=== PATIENT | female | born 1935 | race Caucasian/White ===

== ENCOUNTER 2017-03-28 20:05 | Emergency (ER) | payer MEDICARE ==
[2017-03-28 20:34] VITALS: BP 0/0
[2017-03-28] MEDS ORDERED: Acetaminophen TAB* 325 MG PO ONE (20:44)
--- NOTE | 2017-03-28 21:23 | UC ---
Bonnie Serrato Gabriel, scribed for Belén Eubanks MD on 03/28/17 at 2104 . Bite Injury/Animal HPI - HPI Summary HPI Summary: This patient is a 81 year old F presenting to [facility] [place] accompanied by her daughter with a chief complaint of a tick bite on her chin that she noticed this afternoon. Daughter attempted to remove - "legs left" Pt states has deer in her yard and was outside "picking up" when warm 2-3 days ago. Pt denies fevers , chills. Not immunocompromised. Pt does not know how long was attaches - believes less than 48 hours. Patient denies dental pain. Tdap UTD Patients medication reviewed during this visit. - History of Current Complaint Chief Complaint: [place] Stated Complaint: INSECT BITE Time Seen by Provider: 03/28/17 20:59 Hx Obtained From: Patient Severity Currently: Mild Severity Initially: Mild Pain Intensity: 0 Pain Scale Used: 0-10 Numeric Onset/Duration: Still Present Type of Bite: Animal - tick Associated Signs And Symptoms: Positive: Negative - dental pain - Allergies/Home Medications Allergies/Adverse Reactions: Allergies Allergy/AdvReac Type Severity Reaction Status Date / Time MS Captopril [From Capoten] Allergy Unknown Verified 03/28/17 20:17 Reaction Details MS Propoxyphene [From Darvon] Allergy Unknown Verified 03/28/17 20:17 Reaction Details VALSARTAN Allergy Severe JOINT Uncoded 03/28/17 20:17 PAIN, MULTIPLE REACTIONS Home Medications: Home Medications Aspirin Low Dose CHEW TAB* [Aspirin Low Dose TAB*] 81 mg PO DAILY 03/28/17 [ History Confirmed 03/28/17] Cyanocobalamin [Vitamin B 12] 03/28/17 [History] Ferrous Fumarate [Iron] 03/28/17 [History] PMH/Surg Hx/FS Hx/Imm Hx Cardiovascular History: Hypertension Neurological History: TIA - Surgical History Surgical History: Yes Surgery Procedure, Year, and Place: GOITER, HYSTERECTOMY, CARPAL TUNNEL - Family History Known Family History: Positive: Hypertension Negative: Diabetes, Renal Disease, Respiratory Disease, Seizure Disorder - Social History Occupation: Retired Lives: Alone Alcohol Use: None Substance Use Type: None Smoking Status (MU): Former Smoker Review of Systems Skin: Other - tick bite in chin ENT: Negative - dental pain All Other Systems Reviewed And Are Negative: Yes Physical Exam Triage Information Reviewed: Yes Appearance: Well-Appearing, No Pain Distress, Well-Nourished Vital Signs: Initial Vital Signs Temp 101 F 03/28/17 20:12 Pulse 94 03/28/17 20:12 Resp 18 03/28/17 20:12 BP 198/105 03/28/17 20:12 Pulse Ox 96 03/28/17 20:12 Vital Signs Reviewed: Yes Eye Exam: Normal Eyes: Positive: Conjunctiva Clear ENT Exam: Normal ENT: Positive: Normal ENT inspection, Pharynx normal, TMs normal Dental Exam: Normal Neck exam: Normal Respiratory Exam: Normal Respiratory: Positive: Chest non-tender, Lungs clear, Normal breath sounds, No respiratory distress, No accessory muscle use Cardiovascular Exam: Normal Cardiovascular: Positive: RRR, No Murmur Abdominal Exam: Normal Abdomen Description: Positive: Nontender, No Organomegaly, Soft Bowel Sounds: Positive: Present Musculoskeletal Exam: Normal Musculoskeletal: Positive: Strength Intact Neurological Exam: Normal Neurological: Positive: Alert Psychological Exam: Normal Psychological: Positive: Normal Response To Family Skin: Positive: Other - Pt with small retained sheridan of tick on left submental area using forceps and gentle traction and rotation removed majority - small sheridan remained Bite Injury Course/Dx - Course Course Of Treatment: Pt with small part retained tick chin. removed most - small sheridan left. Tdap Utd. d/w pt and daughter - one dose doxy given at . wound care. s/s infection. covered with abx ointment. pt comfortable and in agreement with plan - Differential Dx/Diagnosis Provider Diagnoses: tick bite. small tick part retained Discharge - Discharge Plan Condition: Stable Disposition: HOME Patient Education Materials: Tick Bite (ED) Referrals: Marcelo Hay MD [Primary Care Provider] - Additional Instructions: - Keep area clean and dry - okay to apply a thin layer of antibiotic ointment 2 times a day (neosporin, polysporin) - monitor the area for signs of infection - reddness, red streaking, odor, drainage, fever - contact your doctor with any questions or concerns The documentation as recorded by the Bonnie esposito Gabriel accurately reflects the service I personally performed and the decisions made by , Belén Eubanks MD.
[2017-03-28] MEDS ORDERED: DOXYcycline CAP(*) 100 MG PO ONE (21:39)
== END 2017-03-28 21:45 | disposition home or self-care (01) ==
LOC: UCEAST 20:05
DX: S00.86XA Insect bite (nonvenomous) of other part of head, initial encounter (principal); W57.XXXA Bitten or stung by nonvenomous insect and other nonvenomous arthropods, initial encounter; Y92.9 Unspecified place or not applicable; I10 Essential (primary) hypertension; Z86.73 Personal history of transient ischemic attack (TIA), and cerebral infarction without residual deficits; Z87.891 Personal history of nicotine dependence; Z79.82 Long term (current) use of aspirin
CPT/HCPCS: 99212; A9270-GY; G0463

== ENCOUNTER 2017-03-30 11:51 | Emergency (ER) | payer MEDICARE ==
[2017-03-30 13:39] LABS: ABS Basophils 0 10^3/ul (0-0.2); ABS Eosinophils 0 10^3/ul (0-0.6); ABS Lymphocytes 0.8 10^3/ul (1.0-4.8); ABS Monocytes 0.5 10^3/ul (0-0.8); ABS Neutrophils 8.6 10^3/ul (1.5-7.7); ABS Nucleated RBC 0 10^3/ul; Eosinophil % 0.3 % (0-6); Hematocrit 35 % (35-47); Hemoglobin 11.6 g/dl (12.0-16.0); Lymphocyte % 8.4 % (25-47); Mean Corpuscular HGB Conc 33 g/dl (31-36); Mean Corpuscular Hemoglobin 31 pg (27-31); Mean Corpuscular Volume 92 fL (80-97); Mean Platelet Volume 9 um3 (7.4-10.4); Nucleated Red Blood Cells % 0; Platelet Count 191 10^3/ul (150-450); Red Blood Count 3.79 10^6/ul (4.0-5.4); Red Cell Distribution Width 14 % (10.5-15)
[2017-03-30 14:02] LABS: EGFR Non-African American 38.1 (>60)
[2017-03-30 15:08] LABS: Urine Appearance Clear; Urine Blood Negative (Negative); Urine Color Yellow; Urine Ketones Negative (Negative); Urine Protein 1+(30 mg/dL) (Negative); Urine Specific Gravity 1.015 (1.010-1.030); Urine Urobilinogen Negative (Negative)
[2017-03-30] MEDS ORDERED: NS 0.9% 1000 ML* 1,000 ML IV ONE (15:11)
--- NOTE | 2017-03-30 15:46 | RAD ---
HISTORY: Leg swelling COMPARISONS: None relevant TECHNIQUE: Multiple transverse and longitudinal ultrasound images were obtained of the right lower extremity from the level of the common femoral vein inferiorly through to the infrapopliteal veins using grayscale, color Doppler, and spectral Doppler imaging with and without compression and with augmentation. Comparison images were obtained of the contralateral common femoral vein. FINDINGS: Evaluation of the calf veins is limited secondary to edema. VEINS: The venous system of the right lower extremity is compressible throughout its course, with normal flow on color Doppler imaging and normal response to augmentation on spectral Doppler imaging. SOFT TISSUES: There is subcutaneous edema of the distal right lower extremity. OTHER FINDINGS: None. IMPRESSION: NO RIGHT LOWER EXTREMITY DEEP VEIN THROMBOSIS
[2017-03-30 16:34] VITALS: BP 176/81
--- NOTE | 2017-04-02 13:10 | ED ---
Chalo Serrato Stephanie, scribed for Momo Melgar MD on 03/30/17 at 1520 . Complex/Multi-Sys Presentation - HPI Summary HPI Summary: The pt is an 81 y/o F presenting to the ED with c/o extremity shaking that began at 10:00 today. Pt pt reports that a few nights ago she went to and found a tick lodged into her neck. The pt reports chronic R LE edema for the past year. The pt denies CP , TORRES, N/V/D, blurred vision, tightness, pain with breathing, dizziness, lightheadedness, fever, chills, sweats, nausea and dysuria. Pt reports her toes look very red. Systolic BP usually 130. Reports that her ankle was swollen but denies pain with weight bearing. - History Of Current Complaint Chief Complaint: EDGeneral Time Seen by Provider: 03/30/17 14:02 Hx Obtained From: Patient Onset/Duration: Lasting Hours - 5, Resolved Timing: Constant - Allergies/Home Medications Allergies/Adverse Reactions: Allergies Allergy/AdvReac Type Severity Reaction Status Date / Time MS Captopril [From Capoten] Allergy Unknown Verified 03/28/17 20:17 Reaction Details MS Propoxyphene [From Darvon] Allergy Unknown Verified 03/28/17 20:17 Reaction Details VALSARTAN Allergy Severe JOINT Uncoded 03/28/17 20:17 PAIN, MULTIPLE REACTIONS PMH/Surg Hx/FS Hx/Imm Hx Cardiovascular History: Reports: Hx Hypertension Musculoskeletal History: Reports: Hx Osteoporosis - Cancer History Hx Chemotherapy: No Hx Radiation Therapy: No - Surgical History Surgery Procedure, Year, and Place: GOITER, HYSTERECTOMY, CARPAL TUNNEL - Immunization History Date of Influenza Vaccine: 11/2016 Immunizations Up to Date: Yes Infectious Disease History: No Infectious Disease History: Denies: Traveled Outside the [place] in Last 30 Days - Family History Known Family History: Positive: Hypertension Negative: Diabetes, Renal Disease, Respiratory Disease, Seizure Disorder - Social History Occupation: Retired Lives: Alone Alcohol Use: None Substance Use Type: Reports: None Smoking Status (MU): Former Smoker Review of Systems Negative: Fever, Chills Negative: Blurred Vision, Erythema Negative: Sore Throat Negative: Chest Pain Negative: Shortness Of Breath, Cough Negative: Abdominal Pain, Vomiting, Diarrhea, Nausea Negative: dysuria, hematuria Negative: Myalgia, Edema Negative: Rash Neurological: Other - Negative: dizziness Negative: Headache All Other Systems Reviewed And Are Negative: Yes Physical Exam - Summary Physical Exam Summary: Constitutional: Well-developed, Well-nourished, Alert. (-) Distressed Skin: Warm, Dry HENT: Normocephalic; Atraumatic Eyes: Conjunctiva normal Neck: Musculoskeletal ROM normal neck. (-) JVD, (-) Stridor, (-) Tracheal deviation Cardio: Rhythm regular, rate normal, Heart sounds normal; Intact distal pulses; The pedal pulses are 2+ and symmetric. Radial pulses are 2+ and symmetric. (-) Murmur Pulmonary/Chest wall: Effort normal. (-) Respiratory distress, (-) Wheezes, (-) Rales Abd: Soft. (-) Tenderness, (-) Distension, (-) Guarding, (-) Rebound Musculoskeletal: venous stasis skin changes in feet. R calf has trace edema and erythema. Nontender to palpation Lymph: (-) Cervical adenopathy Neuro: Alert, Oriented x3, Strength normal, Cranial nerves II-XII are grossly intact. (-) Dysmetria, (-) Nystagmus, (-) Ataxia by finger to nose testing, (-) Sensory deficit. Psych: Mood and affect Normal Triage Information Reviewed: Yes Vital Signs On Initial Exam: Initial Vitals Temp Pulse Resp BP Pulse Ox 98.9 F 87 18 194/88 91 03/30/17 12:11 03/30/17 12:11 03/30/17 12:11 03/30/17 12:11 03/30/17 12:11 Vital Signs Reviewed: Yes Procedures - Procedure Summary Procedure Summary: Tick removal procedure - Incision and Drainage Site: chin Anesthesia: Other - none Instrument(s): Other - Forceps Diagnostics - Vital Signs Vital Signs Temp Pulse Resp BP Pulse Ox 03/30/17 12:11 98.9 F 87 18 194/88 91 - Laboratory Lab Results: Lab Results 03/30/17 03/30/17 03/30/17 Range/Units 13:30 13:30 14:30 WBC 10.0 (3.5-10.8) 10^3/ul RBC 3.79 L (4.0-5.4) 10^6/ul Hgb 11.6 L (12.0-16.0) g/dl Hct 35 (35-47) % MCV 92 (80-97) fL MCH 31 (27-31) pg MCHC 33 (31-36) g/dl RDW 14 (10.5-15) % Plt Count 191 (150-450) 10^3/ul MPV 9 (7.4-10.4) um3 Neut % (Auto) 85.7 H (38-83) % Lymph % (Auto) 8.4 L (25-47) % [place] % (Auto) 5.1 (1-9) % Eos % (Auto) 0.3 (0-6) % Baso % (Auto) 0.5 (0-2) % Absolute Neuts (auto) 8.6 H (1.5-7.7) 10^3/ul Absolute Lymphs (auto) 0.8 L (1.0-4.8) 10^3/ul Absolute Monos (auto) 0.5 (0-0.8) 10^3/ul Absolute Eos (auto) 0 (0-0.6) 10^3/ul Absolute Basos (auto) 0 (0-0.2) 10^3/ul Absolute Nucleated RBC 0 10^3/ul Nucleated RBC % 0 Sodium 136 (133-145) mmol/L Potassium 5.0 (3.5-5.0) mmol/L Chloride 100 L (101-111) mmol/L Carbon Dioxide 30 (22-32) mmol/L Anion Gap 6 (2-11) mmol/L BUN 31 H (6-24) mg/dL Creatinine 1.33 H (0.51-0.95) mg/dL Est GFR ( Amer) 49.0 (>60) Est GFR (Non-Af Amer) 38.1 (>60) BUN/Creatinine Ratio 23.3 H (8-20) Glucose 101 H (70-100) mg/dL Calcium 10.1 (8.6-10.3) mg/dL Total Bilirubin 0.70 (0.2-1.0) mg/dL AST 26 (13-39) U/L ALT 20 (7-52) U/L Alkaline Phosphatase 39 (34-104) U/L C-Reactive Protein 1.64 (< 5.00) mg/L Total Protein 6.9 (6.4-8.9) g/dL Albumin 4.1 (3.2-5.2) g/dL Globulin 2.8 (2-4) g/dL Albumin/Globulin Ratio 1.5 (1-3) Urine Color Yellow Urine Appearance Clear Urine pH 6.0 (5-9) Ur Specific [place] 1.015 (1.010-1.030) Urine Protein 1+(30 mg/dl) H (Negative) Urine Ketones Negative (Negative) Urine Blood Negative (Negative) Urine Nitrate Negative (Negative) Urine Bilirubin Negative (Negative) Urine Urobilinogen Negative (Negative) Ur Leukocyte Esterase Trace H (Negative) Urine WBC (Auto) Trace(0-5/hpf) (Absent) Urine RBC (Auto) Trace(0-2/hpf) (Absent) Ur Squamous Epith Cells Present H (Absent) Urine Bacteria Absent (Absent) Hyaline Casts Present H (Absent) Urine Glucose Negative (Negative) Result Diagrams: 03/30/17 13:30 03/30/17 13:30 Lab Statement: Any lab studies that have been ordered have been reviewed, and results considered in the medical decision making process. - Additional Comments Diagnostic Additional Comments: Venous Doppler showed: NO RIGHT LOWER EXTREMITY DEEP VEIN THROMBOSIS Complex Multi-Symp Course/Dx Course Of Treatment: DVT study negative. The pt previously injured that ankle. ED physician suspects she may have stasis due to past injury. She is tolerating liquids. The pt knows she needs to increase fluid intake. ED physician suggests half-caffeinated coffee. She understands the coffee may have caused her shakiness. No signs or symptoms of Lyme disease. Mouth part of the tick was removed with forceps. - Diagnoses Provider Diagnoses: Tick bite, Adverse effect of caffeine, Dehydration Discharge - Discharge Plan Condition: Stable Disposition: HOME Patient Education Materials: Dehydration (ED), Tick Bite (ED), Caffeine Use (ED ) Referrals: Marcelo Hay MD [Primary Care Provider] - 3 Days Additional Instructions: RETURN TO THE EMERGENCY DEPARTMENT FOR CHANGING OR WORSENING SYMPTOMS The documentation as recorded by the Chalo esposito Stephanie accurately reflects the service I personally performed and the decisions made by , Momo Melgar MD.
== END 2017-03-30 16:36 | disposition home or self-care (01) ==
LOC: ED 11:51
DX: R25.9 Unspecified abnormal involuntary movements (principal); T43.615A Adverse effect of caffeine, initial encounter; E86.0 Dehydration; R60.0 Localized edema; S10.96XA Insect bite of unspecified part of neck, initial encounter; W57.XXXA Bitten or stung by nonvenomous insect and other nonvenomous arthropods, initial encounter; Y92.9 Unspecified place or not applicable; Z88.8 Allergy status to other drugs, medicaments and biological substances; Z87.891 Personal history of nicotine dependence
CPT/HCPCS: 36415; 80053; 81003; 81015; 85025; 86140; 87086; 99282

== ENCOUNTER 2017-04-01 09:57 | Emergency (ER) | payer MEDICARE ==
[2017-04-01 12:09] LABS: EGFR Non-African American 39.5 (>60)
[2017-04-01 12:22] LABS: ABS Basophils 0 10^3/ul (0-0.2); ABS Eosinophils 0 10^3/ul (0-0.6); ABS Monocytes 0.4 10^3/ul (0-0.8); ABS Neutrophils 7.2 10^3/ul (1.5-7.7); ABS Nucleated RBC 0 10^3/ul; Eosinophil % 0.2 % (0-6); Hematocrit 37 % (35-47); Hemoglobin 12.4 g/dl (12.0-16.0); Lymphocyte % 11.2 % (25-47); Mean Corpuscular HGB Conc 34 g/dl (31-36); Mean Corpuscular Hemoglobin 31 pg (27-31); Mean Corpuscular Volume 92 fL (80-97); Mean Platelet Volume 8 um3 (7.4-10.4); Nucleated Red Blood Cells % 0.1; Platelet Count 200 10^3/ul (150-450); Red Cell Distribution Width 14 % (10.5-15); White Blood Count 8.7 10^3/ul (3.5-10.8)
[2017-04-01 12:39] LABS: Urine Appearance Clear; Urine Blood Negative (Negative); Urine Color Straw; Urine Ketones Negative (Negative); Urine Protein Negative (Negative); Urine Specific Gravity 1.006 (1.010-1.030); Urine Urobilinogen Negative (Negative)
[2017-04-01 14:42] VITALS: BP 169/88
--- NOTE | 2017-04-01 16:33 | ED ---
Seymour Serrato Nikita, scribed for Marcelo Yeung MD on 04/01/17 at 1113 . Lower Extremity - HPI Summary HPI Summary: This patient is an 81 year old F presenting to ED with a chief complaint of shaky legs since 03/29/17. The patient rates the pain 0/10 in severity. Symptoms aggravated by nothing. Symptoms alleviated by nothing. Patient reports dehydration and bilateral LE swelling. Patient denies numbness or tingling, body aches, any pain, CP, SOB, palpitations, fever, and chills. Pt was in the ED a couple days ago for similar symptoms. Pt had a tick removed at a few days ago. - History of Current Complaint Chief Complaint: EDExtremityLower Stated Complaint: SHAKY-LEGS Time Seen by Provider: 04/01/17 10:35 Hx Obtained From: Patient Severity Currently: None Pain Intensity: 0 Pain Scale Used: 0-10 Numeric Location: Is Discrete @ - bilateral LE Associated Signs And Symptoms: Positive: Other - Patient reports dehydration and bilateral LE swelling. Patient denies numbness or tingling, body aches, any pain, CP, SOB, palpitations, fever, and chills. Aggravating Factor(s): Nothing Alleviating Factor(s): Nothing - Allergies/Home Medications Allergies/Adverse Reactions: Allergies Allergy/AdvReac Type Severity Reaction Status Date / Time MS Captopril [From Capoten] Allergy Unknown Verified 03/28/17 20:17 Reaction Details MS Propoxyphene [From Darvon] Allergy Unknown Verified 03/28/17 20:17 Reaction Details VALSARTAN Allergy Severe JOINT Uncoded 03/28/17 20:17 PAIN, MULTIPLE REACTIONS cleocin Allergy Unknown Uncoded 04/01/17 10:10 Reaction Details Home Medications: Home Medications Cyanocobalamin TAB* [Vitamin B12 TAB*] 6,000 mcg PO DAILY 04/01/17 [History Confirmed 04/01/17] Ferrous Sulfate LIQ* [Feosol LIQ*] 5 ml PO DAILY 04/01/17 [History Confirmed 05/14] Potassium Chloride 15 ml PO DAILY 04/01/17 [History Confirmed 04/01/17] Valsartan TAB* [Diovan TAB*] 160 mg PO DAILY 04/01/17 [History Confirmed ] PMH/Surg Hx/FS Hx/Imm Hx Cardiovascular History: Reports: Hx Hypertension Musculoskeletal History: Reports: Hx Osteoporosis - Cancer History Hx Chemotherapy: No Hx Radiation Therapy: No - Surgical History Surgery Procedure, Year, and Place: GOITER, HYSTERECTOMY, CARPAL TUNNEL - Immunization History Date of Influenza Vaccine: 11/2016 Infectious Disease History: No Infectious Disease History: Denies: Traveled Outside the [place] in Last 30 Days - Family History Known Family History: Positive: Hypertension Negative: Diabetes, Renal Disease, Respiratory Disease, Seizure Disorder - Social History Alcohol Use: None Substance Use Type: Reports: None Smoking Status (MU): Former Smoker Review of Systems Negative: Fever, Chills Positive: Other - dehydration Negative: Palpitations, Chest Pain Negative: Shortness Of Breath Positive: Other - LE swelling; denies any pain or body aches Neurological: Other - "shaky legs"; denies any numbness or tingling All Other Systems Reviewed And Are Negative: Yes Physical Exam - Summary Physical Exam Summary: VITAL SIGNS: Reviewed. GENERAL: ~Patient is a well-developed and nourished FEMALE who is lying comfortable in the stretcher. ~Patient is not in any acute respiratory distress. HEAD AND FACE: No signs of trauma. ~No ecchymosis, hematomas or skull depressions. No sinus tenderness. EYES: PERRLA, EOMI x 2, No injected conjunctiva, no nystagmus. EARS: Hearing grossly intact. Ear canals and tympanic membranes are within normal limits. MOUTH: Oropharynx within normal limits. NECK: Supple, trachea is midline, no adenopathy, no JVD, no carotid bruit, no c- spine tenderness, neck with full ROM. CHEST: Symmetric, no tenderness at palpation LUNGS: Clear to auscultation bilaterally. No wheezing or crackles. CVS: Regular rate and rhythm, S1 and S2 present, no murmurs or gallops appreciated. ABDOMEN: Soft, non-tender. No signs of distention. No rebound no guarding, and no masses palpated. Bowel sounds are normal. EXTREMITIES: FROM in all major joints, no cyanosis or clubbing. Good pulses in the legs, 1+ edema. NEURO: Alert and oriented x 3. No acute neurological deficits. Speech is normal and follows commands. SKIN: Dry and warm, no erythema. Triage Information Reviewed: Yes Vital Signs On Initial Exam: Initial Vitals Temp Pulse Resp BP Pulse Ox 99.1 F 78 19 189/139 99 04/01/17 10:06 04/01/17 10:06 04/01/17 10:06 04/01/17 10:06 04/01/17 10:06 Vital Signs Reviewed: Yes Diagnostics - Vital Signs Vital Signs Temp Pulse Resp BP Pulse Ox 04/01/17 11:00 66 177/78 96 04/01/17 10:31 70 98 04/01/17 10:30 190/64 04/01/17 10:06 99.1 F 78 19 189/139 99 - Laboratory Lab Results: Lab Results 04/01/17 04/01/17 04/01/17 Range/Units 11:40 12:00 12:08 WBC 8.7 (3.5-10.8) 10^3/ul RBC 4.00 (4.0-5.4) 10^6/ul Hgb 12.4 (12.0-16.0) g/dl Hct 37 (35-47) % MCV 92 (80-97) fL MCH 31 (27-31) pg MCHC 34 (31-36) g/dl RDW 14 (10.5-15) % Plt Count 200 (150-450) 10^3/ul MPV 8 (7.4-10.4) um3 Neut % (Auto) 83.3 H (38-83) % Lymph % (Auto) 11.2 L (25-47) % [place] % (Auto) 5.0 (1-9) % Eos % (Auto) 0.2 (0-6) % Baso % (Auto) 0.3 (0-2) % Absolute Neuts (auto) 7.2 (1.5-7.7) 10^3/ul Absolute Lymphs (auto) 1.0 (1.0-4.8) 10^3/ul Absolute Monos (auto) 0.4 (0-0.8) 10^3/ul Absolute Eos (auto) 0 (0-0.6) 10^3/ul Absolute Basos (auto) 0 (0-0.2) 10^3/ul Absolute Nucleated RBC 0 10^3/ul Nucleated RBC % 0.1 Sodium 132 L (133-145) mmol/L Potassium TNP Chloride 100 L (101-111) mmol/L Carbon Dioxide 24 (22-32) mmol/L Anion Gap 8 (2-11) mmol/L BUN 31 H (6-24) mg/dL Creatinine 1.29 H (0.51-0.95) mg/dL Est GFR ( Amer) 50.8 (>60) Est GFR (Non-Af Amer) 39.5 (>60) BUN/Creatinine Ratio 24.0 H (8-20) Glucose 96 (70-100) mg/dL Calcium 9.3 (8.6-10.3) mg/dL Total Bilirubin 0.60 (0.2-1.0) mg/dL AST TNP ALT 16 (7-52) U/L Alkaline Phosphatase 31 L (34-104) U/L C-Reactive Protein < 1.00 (< 5.00) mg/L Total Protein 6.4 (6.4-8.9) g/dL Albumin 3.6 (3.2-5.2) g/dL Globulin 2.8 (2-4) g/dL Albumin/Globulin Ratio 1.3 (1-3) Urine Color Straw Urine Appearance Clear Urine pH 7.0 (5-9) Ur Specific [place] 1.006 L (1.010-1.030) Urine Protein Negative (Negative) Urine Ketones Negative (Negative) Urine Blood Negative (Negative) Urine Nitrate Negative (Negative) Urine Bilirubin Negative (Negative) Urine Urobilinogen Negative (Negative) Ur Leukocyte Esterase Negative (Negative) Urine Glucose Negative (Negative) 04/01/17 Range/Units 12:08 WBC (3.5-10.8) 10^3/ul RBC (4.0-5.4) 10^6/ul Hgb (12.0-16.0) g/dl Hct (35-47) % MCV (80-97) fL MCH (27-31) pg MCHC (31-36) g/dl RDW (10.5-15) % Plt Count (150-450) 10^3/ul MPV (7.4-10.4) um3 Neut % (Auto) (38-83) % Lymph % (Auto) (25-47) % [place] % (Auto) (1-9) % Eos % (Auto) (0-6) % Baso % (Auto) (0-2) % Absolute Neuts (auto) (1.5-7.7) 10^3/ul Absolute Lymphs (auto) (1.0-4.8) 10^3/ul Absolute Monos (auto) (0-0.8) 10^3/ul Absolute Eos (auto) (0-0.6) 10^3/ul Absolute Basos (auto) (0-0.2) 10^3/ul Absolute Nucleated RBC 10^3/ul Nucleated RBC % Sodium (133-145) mmol/L Potassium 4.6 Chloride (101-111) mmol/L Carbon Dioxide (22-32) mmol/L Anion Gap (2-11) mmol/L BUN (6-24) mg/dL Creatinine (0.51-0.95) mg/dL Est GFR ( Amer) (>60) Est GFR (Non-Af Amer) (>60) BUN/Creatinine Ratio (8-20) Glucose (70-100) mg/dL Calcium (8.6-10.3) mg/dL Total Bilirubin (0.2-1.0) mg/dL AST 23 ALT (7-52) U/L Alkaline Phosphatase (34-104) U/L C-Reactive Protein (< 5.00) mg/L Total Protein (6.4-8.9) g/dL Albumin (3.2-5.2) g/dL Globulin (2-4) g/dL Albumin/Globulin Ratio (1-3) Urine Color Urine Appearance Urine pH (5-9) Ur Specific [place] (1.010-1.030) Urine Protein (Negative) Urine Ketones (Negative) Urine Blood (Negative) Urine Nitrate (Negative) Urine Bilirubin (Negative) Urine Urobilinogen (Negative) Ur Leukocyte Esterase (Negative) Urine Glucose (Negative) Result Diagrams: 04/01/17 12:08 04/01/17 12:08 Lab Statement: Any lab studies that have been ordered have been reviewed, and results considered in the medical decision making process. Lower Extremity Course/Dx - Course Assessment/Plan: This patient is an 81 year old F presenting to ED with a chief complaint of shaky legs since 03/29/17. Blood work is without significant abnormalities. No signs for UTI. A bilateral US was done a couple days ago, which was negative. Pt was ambulating with no tremors, so she was D/C home with instructions to f/u with PCP. The pt is hemodynamically stable, alert and oriented x3. - Diagnoses Differential Diagnosis/HQI/PQRI: Positive: Other - tremors Provider Diagnoses: Tremor Discharge - Discharge Plan Condition: Stable Disposition: HOME Patient Education Materials: Tremors (ED) Referrals: Marcelo Hay MD [Primary Care Provider] - 3 Days Additional Instructions: RETURN TO THE ED FOR ANY NEW OR WORSENING SYMPTOMS. The documentation as recorded by the Seymour esposito Nikita accurately reflects the service I personally performed and the decisions made by Gamal gibbons Walter, MD.
== END 2017-04-01 14:41 | disposition home or self-care (01) ==
LOC: ED 09:57
DX: R25.1 Tremor, unspecified (principal); Z87.891 Personal history of nicotine dependence; Z88.8 Allergy status to other drugs, medicaments and biological substances
CPT/HCPCS: 36415; 80053; 81003; 85025; 86140; 99283

== ENCOUNTER 2017-08-01 13:13 | Emergency (ER) | payer MEDICARE ==
[2017-08-01] MEDS ORDERED: Atenolol TAB* 50 MG PO ONE (14:44)
[2017-08-01] MEDS ORDERED: Furosemide TAB* 40 MG PO ONE (14:44)
--- NOTE | 2017-08-01 15:17 | RAD ---
Indication: Peripheral edema. 2 views of the chest are reviewed and compared to previous exam dated September 25, 2015. Cardiomegaly is noted. Interstitial edema consistent with CHF is noted. No alveolar consolidation is noted. IMPRESSION: Cardiomegaly with interstitial edema consistent with vascular congestion.
[2017-08-01 15:24] LABS: ABS Basophils 0 10^3/ul (0-0.2); ABS Eosinophils 0 10^3/ul (0-0.6); ABS Lymphocytes 0.8 10^3/ul (1.0-4.8); ABS Monocytes 0.4 10^3/ul (0-0.8); ABS Neutrophils 6.9 10^3/ul (1.5-7.7); ABS Nucleated RBC 0 10^3/ul; Eosinophil % 0.1 % (0-6); Hematocrit 36 % (35-47); Hemoglobin 12.1 g/dl (12.0-16.0); Lymphocyte % 9.8 % (25-47); Mean Corpuscular HGB Conc 34 g/dl (31-36); Mean Corpuscular Hemoglobin 31 pg (27-31); Mean Corpuscular Volume 91 fL (80-97); Mean Platelet Volume 7.9 um3 (7.4-10.4); Nucleated Red Blood Cells % 0; Platelet Count 201 10^3/ul (150-450); Red Blood Count 3.98 10^6/ul (4.0-5.4); Red Cell Distribution Width 13 % (10.5-15); White Blood Count 8.1 10^3/ul (3.5-10.8)
[2017-08-01 15:42] LABS: EGFR Non-African American 47.9 (>60)
[2017-08-01 18:58] VITALS: BP 189/88
--- NOTE | 2017-08-04 08:41 | ED ---
Chalo Serrato Stephanie, scribed for Momo Melgar MD on 08/01/17 at 1443 . Hypertension - HPI Summary HPI Summary: The pt is an 81 y/o F presenting to the ED with c/o elevated BP that began over the past few days. Symptoms include shakiness. She denies dizziness, lightheadedness, CP, TORRES and weight gain. The pt walks with a cane at baseline. The pt states she took her medications today at 08:00 except her fluid pill. The pt states her BP has lately been between 150-170 systolic. The pts daughter reports the pts normal BP at 130s systolic. - History of Current Complaint Chief Complaint: EDGeneral Stated Complaint: HIGH BP Time Seen by Provider: 08/01/17 14:35 Hx Obtained From: Patient, Family/Brass Bobbin Winder - daughter Onset/Duration: Started Days Ago, Still Present Timing: Constant Aggravating Factor(s): Nothing Alleviating Factor(s): Nothing Associated Signs & Symptoms: Other: - shaking - Allergies/Home Medications Allergies/Adverse Reactions: Allergies Allergy/AdvReac Type Severity Reaction Status Date / Time captopril Allergy Hives Verified 08/01/17 13:23 clindamycin [From Cleocin] Allergy Unknown Verified 08/01/17 15:15 Reaction Details Home Medications: Home Medications Atenolol TAB* [Tenormin TAB* 50 MG] 100 mg PO DAILY 08/01/17 [History Confirmed 08/01/17] Jace/D3/Mag11/Zinc/Drafter Topographical/Mike/Bor [Caltrate 600+D Plus] 1 tab PO DAILY 08/01/17 [ History Confirmed 08/01/17] Potassium Chloride 20 meq PO DAILY 08/01/17 [History Confirmed 08/01/17] PMH/Surg Hx/FS Hx/Imm Hx Cardiovascular History: Reports: Hx Hypertension Musculoskeletal History: Reports: Hx Osteoporosis Sensory History: Denies: Hx Legally Blind EENT History: Denies: Hx Deafness - Cancer History Hx Chemotherapy: No Hx Radiation Therapy: No - Surgical History Surgery Procedure, Year, and Place: GOITER, HYSTERECTOMY, CARPAL TUNNEL - Immunization History Date of Influenza Vaccine: 11/2016 Infectious Disease History: No Infectious Disease History: Denies: Traveled Outside the [place] in Last 30 Days - Family History Known Family History: Positive: Hypertension Negative: Diabetes, Renal Disease, Respiratory Disease, Seizure Disorder - Social History Occupation: Retired Lives: With Family Alcohol Use: None Hx Substance Use: No Substance Use Type: Reports: None Hx Tobacco Use: Yes Smoking Status (MU): Former Smoker Review of Systems Positive: Other - shakiness. Negative: Fever, Chills Negative: Erythema Negative: Sore Throat Negative: Chest Pain Negative: Shortness Of Breath, Cough Negative: Abdominal Pain, Vomiting, Nausea Negative: dysuria, hematuria Negative: Myalgia, Edema Negative: Rash Neurological: Negative - dizziness All Other Systems Reviewed And Are Negative: Yes Physical Exam - Summary Physical Exam Summary: Constitutional: Well-developed, Well-nourished, Alert. (-) Distressed Skin: Warm, Dry HENT: Normocephalic; Atraumatic Eyes: Conjunctiva normal Neck: Musculoskeletal ROM normal neck. (-) JVD, (-) Stridor, (-) Tracheal deviation Cardio: Rhythm regular, rate normal, Heart sounds normal; Intact distal pulses; The pedal pulses are 2+ and symmetric. Radial pulses are 2+ and symmetric. (-) Murmur Pulmonary/Chest wall: Effort normal. (-) Respiratory distress, (-) Wheezes, (-) Rales Abd: Soft, (-) Tenderness, (-) Distension, (-) Guarding, (-) Rebound Musculoskeletal: (-) Edema Lymph: (-) Cervical adenopathy Neuro: Alert, Oriented x3 Psych: Mood and affect Normal Triage Information Reviewed: Yes Vital Signs On Initial Exam: Initial Vitals Temp Pulse Resp BP Pulse Ox 99 F 78 18 188/88 97 08/01/17 13:19 08/01/17 13:19 08/01/17 13:19 08/01/17 13:19 08/01/17 13:19 Vital Signs Reviewed: Yes Diagnostics - Vital Signs Vital Signs Temp Pulse Resp BP Pulse Ox 08/01/17 14:35 76 196/91 96 08/01/17 14:25 98.2 F 71 16 184/83 99 08/01/17 13:19 99 F 78 18 188/88 97 - Laboratory Result Diagrams: 08/01/17 15:18 08/01/17 15:18 Lab Statement: Any lab studies that have been ordered have been reviewed, and results considered in the medical decision making process. - Radiology CXR Xray Interpretation: Positive (See Comments) Radiology Interpretation Completed By: Radiologist - Cardiomegaly with interstitial edema consistent with vascular congestion. ED physician has reviewed this report. - EKG 14:54 Cardiac Rate: NL EKG Rhythm: Sinus Rhythm - 68 BPM EKG Interpretation: no STEMI Re-Evaluation - Re-Evaluation First Eval Re-Evaluation Time: 17:35 Change: Unchanged - The pt is agreable for discharge. She agrees to take her lasix everday. Hypertension Course/Dx - Diagnoses Provider Diagnoses: Pulmonary edema, Hypertension Discharge - Sign-Out/Discharge Documenting (check all that apply): Discharge/Admit/Transfer - Discharge - Discharge Plan Condition: Stable Disposition: HOME Patient Education Materials: Hypertension in the Older Adult (ED) Referrals: Marcelo Hay MD [Primary Care Provider] - 2 Days Additional Instructions: Return to the ED for new or worsening symptoms. Take Lasix every day. Weigh yourself daily. Report to PCP with any changes. The documentation as recorded by the Chalo esposito Stephanie accurately reflects the service I personally performed and the decisions made by , Momo Melgar MD.
== END 2017-08-01 18:57 | disposition home or self-care (01) ==
LOC: ED 13:13
DX: J81.1 Chronic pulmonary edema (principal); I10 Essential (primary) hypertension; R25.1 Tremor, unspecified; Z88.1 Allergy status to other antibiotic agents; Z88.8 Allergy status to other drugs, medicaments and biological substances; M81.0 Age-related osteoporosis without current pathological fracture; Z90.710 Acquired absence of both cervix and uterus; Z82.49 Family history of ischemic heart disease and other diseases of the circulatory system; Z87.891 Personal history of nicotine dependence
CPT/HCPCS: 36415; 71046; 80053; 83605; 83880; 84484; 85025; 93005; 99284; A9270-GY

== ENCOUNTER → 2017-09-01 16:15 | Emergency (ER) | payer MEDICARE ==
[~2017-09-01 16:15] MED LIST: NS 0.9% 1000 ML* 1,000 ML IV ONE; ceFAZolin 1 GM in Dextrose (*) 1 GM/50 ML BAG IVPB ONE
--- OUTSIDE RECORDS SUMMARY | 2017-09-01 16:42 | XMS REPORT ---
:1935 External Reference #:[id number] Author Organization [facility] Address [address] [facility] [place] [address] Phone [phone] Care Team Providers Name Role Phone Marcelo Hay III, MD Primary Care Physician Unavailable Payers Type Date Identification Numbers Payment Provider Subscriber Medicare Primary Policy Number: [id number] Medicare Lucie Schmitt PayID: [id number] [address] [place] [address] Medigap Part B Effective: Policy Number: [facility] Lucie Schmitt 2013 [id number] [facility] PayID: [id number] [address] [place] [address] Medigap Part B Expires: 2013 Policy Number: BS [facility] Lucie Schmitt [id number] PayID: [id number] [address] [address] [place] [address] Problems Date Description Provider Status Onset: 04/18/2011 Benign essential hypertension Marcelo Hay M.D. Active Onset: 04/18/2011 Osteoporosis Marcelo Hay M.D. Active Onset: 04/18/2011 Anemia Marcelo Hay M.D. Active Onset: 06/23/2015 Essential hypertension Marcelo Hay M.D. 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 Chloride 2016 (10%) ts MLS Once Bharti, Daily By M.D. Mouth 3 times a week with Lasix doses Ferrous 10/05/ Active Elixir 220(44Fe) 473uni Take 5 MLS Marcelo E. Sulfate 2016 mg/5ML ts By Mouth Bharti, Once Daily M.D. With A Small Glass Of [place] Juice Diovan 09/11/ Active Tablets 160mg 90tabs Take One I10 Marcelo E. 2014 Tablet By Bharti, Everette Once M.D. Daily Vitamin B12 07/29/ Active Tablets ER 6000mcg 90tabs 1 po qd Unknown 2013 Furosemide 08/20/ Active Tablets 40mg 30tabs now taking Marcelo E. 2010 daily---delilah Meyer One M.D. Tablet By Mouth Once Daily If Needed Alendronate 06/15/ Active Tablets 70mg 12tabs Take 1 Marcelo EViji Sodium 2010 Tablet By Everette Hay M.DViji Every Week Aspirin 08/18/ Active Tablets 81mg 1 po qd Marcelo Toure 2009 Tommy Hay Caltrate 600+D 02/15/ Active Tablets 1 PO daily Marcelo Toure 2006 Tommy Hay Atenolol / Active Tablets 100mg 90tabs take one Marcelo E. 0000 tablet by Bharti, mouth once M.D. daily Klor-Con M20 04/16/ Hx Tablets ER 20Meq 90tabs 1 by mouth Marcelo Toure 2015 - every day Bharti 10/10/ Tommy 2016 Lidoderm 12/25/ Hx Patches 5% 15unit use as M54.2 Marcelo Toure 2014 - s needed on Bharti, affected M.D. 2014 area. on for 12 hours then off for 12 hours. Valsartan 06/08/ Hx Tablets 160mg 90tabs 1 by mouth 401.1 Marcelo Toure 2014 - every day Bharti, M.D. 2014 Ferrous 07/29/ Hx Tablets 325mg 180tab 1 by mouth Marcelo Toure Gluconate 2013 - s twice a Bharti, 10/05/ day M.D. 2015 Prolia 04/23/ Hx Solution 60mg/ml 60mg 60 mg sc Marcelo Toure 2013 - q6mon Bharti, M.D. 2013 Doxazosin 08/08/ Hx Tablets 2mg 90tabs take 1 Marcelo Toure Mesylate 2011 - tablet by Bharti, 06/24/ mouth once M.D. 2014 daily Cipro 02/16/ Hx Tablets 500mg 20tabs 1 po bid Marcelo Toure 2010 - Bharti, M.D. 2011 Klor-Con 10/01/ Hx Packet 20Meq 90unit 1 by mouth I10 Marcelo Toure 2010 - s every day Bharti, 06/22/ M.D. 2016 Furosemide 08/17/ Hx Tablets 40mg 90tabs take 1 Marcelo Toure 2010 - tablet by Bharti, 08/20/ mouth once M.D. 2010 daily if needed Klor-Con M20 04/05/ Hx Tablets ER 20Meq 30tabs 1 po qd Marcelo Toure 2010 - Bharti, 10/01/ M.D. 2010 Klor-Con 01/04/ Hx Tablets ER 20Meq 30tabs 1 po qd Marcelo Toure 2009 - (pt Bharti, 04/05/ switched M.D. 2010 to tablets from powder) Klor-Con 01/20/ Hx Packet 20Meq 30unit 1 po qd Marcelo Toure 2007 - s prn when Bharti, 01/04/ M.D. 2009 lasix Ferrous 12/09/ Hx Tablets 325mg 180tab 1 PO bid Marcelo Toure Gluconate 2007 - s Bharti, 10/17/ M.D. 2011 Fosamax 09/05/ Hx Tablets 70mg 12tabs One Tablet Leo 2008 - po Weekly Pachikara, 06/15/ M.D. 2010 Klor-Con 07/23/ Hx Packet 20Meq 1can 1 PO qd Marcelo Toure 2007 - (powder) Bharti, 01/20/ M.D. 2007 Fosamax 01/05/ Hx Tablets 70mg 4tabs q week Marcelo Toure 2006 - with 8 oz Bharti, 02/15/ water and M.D. 2006 do not lay down for one hour after Cardura 12/04/ Hx Tablets 2mg 30tabs 1 po qd Marcelo Toure 2006 - Bharti, 08/08/ M.D. 2011 Aspirin / Hx Tablets 325mg 1 PO qd Ha 0000 - MD Steffen 2009 Klor-Con M20 / Hx Tablets ER 20Meq 90tabs 1 PO qd Marcelo Toure 0000 - Bharti, 07/23/ M.D. 2007 Lasix / Hx Tablets 40mg 90tabs 1 PO qd Marcelo Toure 0000 - prn. no Bharti, 08/17/ more then M.D. 2010 3x's a week Vitamin B12 / Hx Tablets ER 6000mcg 1 po qd Unknown 0000 - 2011 Diovan / Hx Tablets 160mg 90tabs take 1 401.1 Marcelo Toure 0000 - tablet by Bharti, 06/08/ mouth once M.D. 2014 daily Multivitamin / Hx Capsules 30caps 1 capsule Unknown W/Minerals 0000 - tasia;y 2012 Medications Administered in Office Medication Date Status Form Strength Qnty SIG Indications Ordering Provider B-12 Injection Administered Injection Marcelo Hay M.D. Immunizations CPT Code Status Date Vaccine Lot # [id number] Given 2016 Influenza Virus Vaccine, Quadrivalent, Split, Preservative Free Q2038 Given 11/10/2014 Fluzone Vaccine [id number] Given 04/24/2014 Pneumococcal Conjugate Vaccine 13 Valent For [id number] Intramuscular Use 12946 Given 11/29/2013 Influenza Virus Vaccine, Quadrivalent, Split, [id number] Preservative Free 89798 Given 12/14/2012 Flu Vaccine Split Virus Preservative Free For [id number] Indiv 3Yr Older Q2038 Given 11/25/2011 Fluzone Vaccine [id number] Q2038 Given 12/06/2010 Fluzone Vaccine [id number] 91582 Given 12/04/2009 Influenza Virus 3Yrs & Over 91332 Given 09/08/2008 Zoster (Zostavax) [id number] 60502 Given 12/14/2007 Influenza Virus 3Yrs & Over 03519 Given 11/19/2007 Pneumonia Vaccine 03581 Given 11/19/2007 Tetanus And Diptheria (Td) For Adult Use Preservative Free 91656 Given 11/19/2007 Tetanus And Diptheria (Td) For Adult Use Preservative Free 29340 Given 12/04/2006 Influenza Virus 3Yrs & Over [id number] 24818 Given 12/29/1997 Pneumovax (History By Patient) Vital Signs Date Vital Result Comment 08/03/2017 Height 58 inches 4'10" Weight 112.00 lb Heart Rate 71 /min BP Systolic Sitting 160 mmHg BP Diastolic Sitting 100 mmHg O2 % BldC Oximetry 93 % BMI (Body Mass Index) 23.4 kg/m2 06/23/2017 Height 58 inches 4'10" Weight 120.00 lb Heart Rate 79 /min BP Systolic 190 mmHg took meds BP Diastolic 90 mmHg took meds O2 % BldC Oximetry 95 % BMI (Body Mass Index) 25.1 kg/m2 04/03/2017 Weight 122.00 lb Heart Rate 86 /min BP Systolic Sitting 166 mmHg Right arm BP Diastolic Sitting 95 mmHg Right arm Body Temperature 98.0 F O2 % BldC Oximetry 97 % 2016 Height 58 inches 4'10" Weight 114.00 lb Heart Rate 82 /min BP Systolic Sitting 186 mmHg BP Diastolic Sitting 92 mmHg Body Temperature 98.3 F Pain Level 0 O2 % BldC Oximetry 94 % BMI (Body Mass Index) 23.8 kg/m2 06/22/2016 Weight 119.00 lb Heart Rate 76 /min BP Systolic Sitting 154 mmHg BP Diastolic Sitting 88 mmHg Respiratory Rate 14 /min Body Temperature 97.2 F O2 % BldC Oximetry 96 % 12/23/2015 Height 57 inches 4'9" Weight 124.00 lb Heart Rate 81 /min BP Systolic Sitting 176 mmHg BP Diastolic Sitting 92 mmHg Body Temperature 97.8 F O2 % BldC Oximetry 96 % BMI (Body Mass Index) 26.8 kg/m2 09/30/2015 Weight 118.00 lb Heart Rate 92 /min BP Systolic Sitting 200 mmHg 191/102 pt's machine BP Diastolic Sitting 100 mmHg 191/102 pt's machine O2 % BldC Oximetry 94 % 06/23/2015 Weight 126.00 lb Heart Rate 87 /min BP Systolic Sitting 158 mmHg BP Diastolic Sitting 86 mmHg Body Temperature 97.5 F 01/06/2015 Height 58.5 inches 4'10.50" Weight 123.00 lb Heart Rate 78 /min BP Systolic Sitting 130 mmHg BP Diastolic Sitting 90 mmHg Pain Level 4 neck BMI (Body Mass Index) 25.3 kg/m2 10/20/2014 Height 58.5 inches 4'10.50" Weight 123.00 lb Heart Rate 81 /min BP Systolic Sitting 166 mmHg BP Diastolic Sitting 90 mmHg O2 % BldC Oximetry 97 % BMI (Body Mass Index) 25.3 kg/m2 04/24/2014 Weight 134.00 lb Heart Rate 86 /min BP Systolic Sitting 178 mmHg 182/90 BP Diastolic Sitting 88 mmHg 182/90 Body Temperature 99.4 F O2 % BldC Oximetry 93 % 10/17/2013 Height 59 inches 4'11" Weight 133.00 lb Heart Rate 84 /min BP Systolic Sitting 158 mmHg BP Diastolic Sitting 84 mmHg Body Temperature 99.3 F BMI (Body Mass Index) 26.9 kg/m2 04/23/2013 Weight 127.00 lb Heart Rate 96 /min BP Systolic Sitting 136 mmHg BP Diastolic Sitting 68 mmHg O2 % BldC Oximetry 93 % 10/17/2012 Height 58 inches 4'10" Weight 126.00 lb Heart Rate 84 /min BP Systolic Sitting 138 mmHg BP Diastolic Sitting 78 mmHg BMI (Body Mass Index) 26.3 kg/m2 04/19/2012 Height 57 inches 4'9" Weight 131.25 lb Heart Rate 84 /min BP Systolic Sitting 148 mmHg BP Diastolic Sitting 82 mmHg BMI (Body Mass Index) 28.4 kg/m2 10/18/2011 Height 58.5 inches 4'10.50" Weight 136.00 lb Heart Rate 80 /min BP Systolic Sitting 160 mmHg BP Diastolic Sitting 90 mmHg BMI (Body Mass Index) 27.9 kg/m2 04/18/2011 Height 58.5 inches 4'10.50" Weight 137.75 lb Heart Rate 88 /min BP Systolic Sitting 170 mmHg BP Diastolic Sitting 88 mmHg BMI (Body Mass Index) 28.3 kg/m2 10/13/2010 Height 57.5 inches 4'9.50" Weight 135.00 lb Heart Rate 74 /min BP Systolic Sitting 142 mmHg BP Diastolic Sitting 82 mmHg BMI (Body Mass Index) 28.7 kg/m2 07/21/2010 Weight 147.00 lb Heart Rate 78 /min BP Systolic Sitting 170 mmHg BP Diastolic Sitting 90 mmHg 06/21/2010 Weight 146.00 lb Heart Rate 82 /min BP Systolic Sitting 160 mmHg BP Diastolic Sitting 84 mmHg 04/12/2010 Weight 144.00 lb Heart Rate 70 /min BP Systolic Sitting 168 mmHg took again in 5 minutes and it was 145/78 BP Diastolic Sitting 84 mmHg took again in 5 minutes and it was 145/78 O2 % BldC Oximetry 97 % 03/16/2010 Weight 144.00 lb Heart Rate 95 /min BP Systolic Sitting 164 mmHg BP Diastolic Sitting 82 mmHg Body Temperature 98.2 F O2 % BldC Oximetry 98 % 03/08/2010 Weight 141.00 lb Heart Rate 94 /min BP Systolic Sitting 149 mmHg was 182/88 rechecked after 15 minutes BP Diastolic Sitting 78 mmHg was 182/88 rechecked after 15 minutes O2 % BldC Oximetry 95 % 12/09/2009 Weight 140.00 lb Heart Rate 78 /min BP Systolic Sitting 160 mmHg BP Diastolic Sitting 80 mmHg 08/18/2009 Weight 144.00 lb Heart Rate 68 /min BP Systolic Sitting 158 mmHg BP Diastolic Sitting 80 mmHg 02/17/2009 Weight 147.00 lb down 9# Heart Rate 76 /min BP Systolic Sitting 156 mmHg BP Diastolic Sitting 68 mmHg 08/18/2008 Height 59 inches 4'11" Weight 156.00 lb Heart Rate 58 /min BP Systolic Sitting 150 mmHg BP Diastolic Sitting 76 mmHg Respiratory Rate 18 /min BMI (Body Mass Index) 31.5 kg/m2 03/20/2008 Height 59 inches 4'11" Weight 153.00 lb Heart Rate 60 /min BP Systolic Sitting 132 mmHg BP Diastolic Sitting 70 mmHg BMI (Body Mass Index) 30.9 kg/m2 11/19/2007 Height 59 inches 4'11" Weight 156.00 lb Heart Rate 56 /min pts machine 153/86 BMI (Body Mass Index) 31.5 kg/m2 05/17/2007 Height 59 inches 4'11" Weight 161.00 lb Heart Rate 60 /min BP Systolic Sitting 154 mmHg BP Diastolic Sitting 78 mmHg BMI (Body Mass Index) 32.5 kg/m2 02/15/2007 Height 59 inches 4'11" Weight 163.00 lb Heart Rate 76 /min BP Systolic Sitting 152 mmHg BP Diastolic Sitting 80 mmHg BMI (Body Mass Index) 32.9 kg/m2 12/18/2006 Height 59 inches 4'11" Weight 163.00 lb Down 5 LBS Heart Rate 68 /min BP Systolic Sitting 154 mmHg BP Diastolic Sitting 86 mmHg BMI (Body Mass Index) 32.9 kg/m2 12/04/2006 Height 59 inches 4'11" Weight 165.00 lb Heart Rate 72 /min BP Systolic Sitting 182 mmHg BP Diastolic Sitting 100 mmHg BMI (Body Mass Index) 33.3 kg/m2 Results Test Date Test Result H/L Range Note Laboratory test finding 08/01/2017 Lactic Acid 0.9 mmol/L 0.5-2.0 1 B-Type Natriuretic Peptide BNP 647 pg/mL High 2 Comp Metabolic Panel 08/01/2017 Sodium 132 mmol/L Low 139-145 Chloride 96 mmol/L Low 101-111 Co2 Carbon Dioxide 30 mmol/L 22-32 Glucose 102 mg/dL High 70-100 Blood Urea Nitrogen 21 mg/dL 6-24 Creatinine 1.09 mg/dL High 0.51-0.95 BUN/Creatinine Ratio 19.3 8-20 Calcium 9.6 mg/dL 8.6-10.3 Total Protein 6.8 g/dL 6.4-8.9 Albumin 4.0 g/dL 3.2-5.2 Globulin 2.8 g/dL 2-4 Albumin/Globulin Ratio 1.4 1-3 Total Bilirubin 0.80 mg/dL 0.2-1.0 Alkaline Phosphatase 42 U/L 34-104 Alt 27 U/L 7-52 Ast 36 U/L 13-39 Egfr Non- 47.9 >60 Egfr 61.7 >60 3 Potassium 5.4 mmol/L High 3.5-5.0 Anion Gap 6 mmol/L 2-11 Laboratory test finding 08/01/2017 Troponin-I (TnI) 0.01 ng/mL <0.04 CBC Auto Diff 08/01/2017 White Blood Count 8.1 10^3/uL 3.5-10.8 Red Blood Count 3.98 10^6/uL Low 4.0-5.4 Hemoglobin 12.1 g/dL 12.0-16.0 Hematocrit 36 % 35-47 Mean Corpuscular Volume 91 fL 80-97 Mean Corpuscular Hemoglobin 31 pg 27-31 Mean Corpuscular HGB Conc 34 g/dL 31-36 Red Cell Distribution Width 13 % 10.5-15 Platelet Count 201 10^3/uL 150-450 Mean Platelet Volume 7.9 um3 7.4-10.4 Abs Neutrophils 6.9 10^3/uL 1.5-7.7 Abs Lymphocytes 0.8 10^3/uL Low 1.0-4.8 Abs Monocytes 0.4 10^3/uL 0-0.8 Abs Eosinophils 0 10^3/uL 0-0.6 Abs Basophils 0 10^3/uL 0-0.2 Abs Nucleated RBC 0 10^3/uL Granulocyte % 85.2 % High 38-83 Lymphocyte % 9.8 % Low 25-47 Monocyte % 4.6 % 0-7 Eosinophil % 0.1 % 0-6 Basophil % 0.3 % 0-2 Nucleated Red Blood Cells % 0 CBC Auto Diff 04/01/2017 White Blood Count 8.7 10^3/uL 3.5-10.8 Red Blood Count 4.00 10^6/uL 4.0-5.4 Hemoglobin 12.4 g/dL 12.0-16.0 Hematocrit 37 % 35-47 Mean Corpuscular Volume 92 fL 80-97 Mean Corpuscular Hemoglobin 31 pg 27-31 Mean Corpuscular HGB Conc 34 g/dL 31-36 Red Cell Distribution Width 14 % 10.5-15 Platelet Count 200 10^3/uL 150-450 Mean Platelet Volume 8 um3 7.4-10.4 Abs Neutrophils 7.2 10^3/uL 1.5-7.7 Abs Lymphocytes 1.0 10^3/uL 1.0-4.8 Abs Monocytes 0.4 10^3/uL 0-0.8 Abs Eosinophils 0 10^3/uL 0-0.6 Abs Basophils 0 10^3/uL 0-0.2 Abs Nucleated RBC 0 10^3/uL Granulocyte % 83.3 % High 38-83 Lymphocyte % 11.2 % Low 25-47 Monocyte % 5.0 % 1-9 Eosinophil % 0.2 % 0-6 Basophil % 0.3 % 0-2 Nucleated Red Blood Cells % 0.1 Laboratory test finding 04/01/2017 Potassium Redraw 4.6 mmol/L 3.5-5.0 Ast Redraw 23 U/L 13-39 Urinalysis Profile 04/01/2017 Urine Color Straw Urine Appearance Clear Urine Specific [place] 1.006 Low 1.010-1.030 Urine pH 7.0 5-9 Urine Urobilinogen Negative Negative Urine Ketones Negative Negative Urine Protein Negative Negative Urine Leukocytes Negative Negative Urine Blood Negative Negative Urine Nitrite Negative Negative Urine Bilirubin Negative Negative Urine Glucose Negative Negative Comp Metabolic Panel 04/01/2017 Sodium 132 mmol/L Low 133-145 Chloride 100 mmol/L Low 101-111 Co2 Carbon Dioxide 24 mmol/L 22-32 Glucose 96 mg/dL 70-100 Blood Urea Nitrogen 31 mg/dL High 6-24 Creatinine 1.29 mg/dL High 0.51-0.95 BUN/Creatinine Ratio 24.0 High 8-20 Calcium 9.3 mg/dL 8.6-10.3 Total Protein 6.4 g/dL 6.4-8.9 Albumin 3.6 g/dL 3.2-5.2 Globulin 2.8 g/dL 2-4 Albumin/Globulin Ratio 1.3 1-3 Total Bilirubin 0.60 mg/dL 0.2-1.0 Alkaline Phosphatase 31 U/L Low 34-104 Alt 16 U/L 7-52 Egfr Non- 39.5 >60 Egfr 50.8 >60 4 Potassium TNP mmol/L 3.5-5.0 5 Anion Gap 8 mmol/L 2-11 Ast TNP U/L 13-39 6 Laboratory test finding 04/01/2017 C Reactive Protein < 1.00 mg/L < 5.00 7 Urinalysis Profile 03/30/2017 Urine Color Yellow Urine Appearance Clear Urine Specific [place] 1.015 1.010-1.030 Urine pH 6.0 5-9 Urine Urobilinogen Negative Negative Urine Ketones Negative Negative Urine Protein 1+(30 mg/dL) Negative Urine Leukocytes Trace Negative Urine Blood Negative Negative Urine Nitrite Negative Negative Urine Bilirubin Negative Negative Urine Glucose Negative Negative Urine White Blood Cell Trace(0-5/hpf) Absent Urine Red Blood Cell Trace(0-2/hpf) Absent Urine Bacteria Absent Absent Urine Squamous Epithelial Cell Present Absent Urine Hyaline Casts Present Absent Urine Culture And 03/30/2017 Urine Culture SEE RESULT BELOW 8 Sensitivities CBC Auto Diff 03/30/2017 White Blood Count 10.0 10^3/uL 3.5-10.8 Red Blood Count 3.79 10^6/uL Low 4.0-5.4 Hemoglobin 11.6 g/dL Low 12.0-16.0 Hematocrit 35 % 35-47 Mean Corpuscular Volume 92 fL 80-97 Mean Corpuscular Hemoglobin 31 pg 27-31 Mean Corpuscular HGB Conc 33 g/dL 31-36 Red Cell Distribution Width 14 % 10.5-15 Platelet Count 191 10^3/uL 150-450 Mean Platelet Volume 9 um3 7.4-10.4 Abs Neutrophils 8.6 10^3/uL High 1.5-7.7 Abs Lymphocytes 0.8 10^3/uL Low 1.0-4.8 Abs Monocytes 0.5 10^3/uL 0-0.8 Abs Eosinophils 0 10^3/uL 0-0.6 Abs Basophils 0 10^3/uL 0-0.2 Abs Nucleated RBC 0 10^3/uL Granulocyte % 85.7 % High 38-83 Lymphocyte % 8.4 % Low 25-47 Monocyte % 5.1 % 1-9 Eosinophil % 0.3 % 0-6 Basophil % 0.5 % 0-2 Nucleated Red Blood Cells % 0 Comp Metabolic Panel 03/30/2017 Sodium 136 mmol/L 133-145 Potassium 5.0 mmol/L 3.5-5.0 Chloride 100 mmol/L Low 101-111 Co2 Carbon Dioxide 30 mmol/L 22-32 Anion Gap 6 mmol/L 2-11 Glucose 101 mg/dL High 70-100 Blood Urea Nitrogen 31 mg/dL High 6-24 Creatinine 1.33 mg/dL High 0.51-0.95 BUN/Creatinine Ratio 23.3 High 8-20 Calcium 10.1 mg/dL 8.6-10.3 Total Protein 6.9 g/dL 6.4-8.9 Albumin 4.1 g/dL 3.2-5.2 Globulin 2.8 g/dL 2-4 Albumin/Globulin Ratio 1.5 1-3 Total Bilirubin 0.70 mg/dL 0.2-1.0 Alkaline Phosphatase 39 U/L 34-104 Alt 20 U/L 7-52 Ast 26 U/L 13-39 Egfr Non- 38.1 >60 Egfr 49.0 >60 9 Laboratory test finding 03/30/2017 C Reactive Protein 1.64 mg/L < 5.00 10 Comp Metabolic Panel 12/19/2016 Sodium 137 mmol/L 133-145 Potassium 4.5 mmol/L 3.5-5.0 Chloride 99 mmol/L Low 101-111 Co2 Carbon Dioxide 31 mmol/L 22-32 Anion Gap 7 mmol/L 2-11 Glucose 109 mg/dL High 70-100 Blood Urea Nitrogen 34 mg/dL High 6-24 Creatinine 1.50 mg/dL High 0.51-0.95 BUN/Creatinine Ratio 22.7 High 8-20 Calcium 10.0 mg/dL 8.6-10.3 Total Protein 7.0 g/dL 6.4-8.9 Albumin 4.1 g/dL 3.2-5.2 Globulin 2.9 g/dL 2-4 Albumin/Globulin Ratio 1.4 1-3 Total Bilirubin 0.80 mg/dL 0.2-1.0 Alkaline Phosphatase 38 U/L 34-104 Alt 14 U/L 7-52 Ast 22 U/L 13-39 Egfr Non- 33.2 >60 Egfr 42.8 >60 11 CBC Auto Diff 12/19/2016 White Blood Count 6.4 10^3/uL 3.5-10.8 Red Blood Count 4.04 10^6/uL 4.0-5.4 Hemoglobin 12.3 g/dL 12.0-16.0 Hematocrit 37 % 35-47 Mean Corpuscular Volume 91 fL 80-97 Mean Corpuscular Hemoglobin 31 pg 27-31 Mean Corpuscular HGB Conc 33 g/dL 31-36 Red Cell Distribution Width 14 % 10.5-15 Platelet Count 212 10^3/uL 150-450 Mean Platelet Volume 9 um3 7.4-10.4 Abs Neutrophils 4.6 10^3/uL 1.5-7.7 Abs Lymphocytes 1.3 10^3/uL 1.0-4.8 Abs Monocytes 0.5 10^3/uL 0-0.8 Abs Eosinophils 0 10^3/uL 0-0.6 Abs Basophils 0 10^3/uL 0-0.2 Abs Nucleated RBC 0 10^3/uL Granulocyte % 71.3 % 38-83 Lymphocyte % 20.5 % Low 25-47 Monocyte % 7.4 % 1-9 Eosinophil % 0.4 % 0-6 Basophil % 0.4 % 0-2 Nucleated Red Blood Cells % 0 Iron & Iron Binding Capacity 12/19/2016 Iron 93 g/dL 50-212 Unsaturated Iron Binding 302 g/dL Total Iron Binding Capacity 395 g/dL 250-450 % Iron Saturation 24 % 15-55 Laboratory test finding 12/19/2016 Ferritin 105.1 ng/mL 11-307 Comp Metabolic Panel 12/21/2015 Sodium 138 mmol/L 133-145 Potassium 4.2 mmol/L 3.5-5.0 Chloride 100 mmol/L Low 101-111 Co2 Carbon Dioxide 29 mmol/L 22-32 Anion Gap 9 mmol/L 2-11 Glucose 93 mg/dL 70-100 Blood Urea Nitrogen 41 mg/dL High 6-24 Creatinine 1.64 mg/dL High 0.51-0.95 BUN/Creatinine Ratio 25.0 High 8-20 Calcium 10.3 mg/dL 8.6-10.3 Total Protein 7.4 g/dL 6.4-8.9 Albumin 4.4 g/dL 3.2-5.2 Globulin 3.0 g/dL 2-4 Albumin/Globulin Ratio 1.5 1-3 Total Bilirubin 0.80 mg/dL 0.2-1.0 Alkaline Phosphatase 37 U/L 34-104 Alt 13 U/L 7-52 Ast 21 U/L 13-39 Egfr Non- 30.1 >60 Egfr 38.7 >60 12 Laboratory test finding 12/21/2015 Vitamin D Total 25(Oh) 80.4 ng/mL High 30-50 CBC Auto Diff 12/21/2015 White Blood Count 8.3 10^3/uL 3.5-10.8 Red Blood Count 3.87 10^6/uL Low 4.0-5.4 Hemoglobin 11.8 g/dL Low 12.0-16.0 Hematocrit 35 % 35-47 Mean Corpuscular Volume 91 fL 80-97 Mean Corpuscular Hemoglobin 31 pg 27-31 Mean Corpuscular HGB Conc 34 g/dL 31-36 Red Cell Distribution Width 15 % 10.5-15 Platelet Count 215 10^3/uL 150-450 Mean Platelet Volume 9 um3 7.4-10.4 Abs Neutrophils 5.7 10^3/uL 1.5-7.7 Abs Lymphocytes 1.8 10^3/uL 1.0-4.8 Abs Monocytes 0.6 10^3/uL 0-0.8 Abs Eosinophils 0.1 10^3/uL 0-0.6 Abs Basophils 0.1 10^3/uL 0-0.2 Abs Nucleated RBC 0 10^3/uL Granulocyte % 69.3 % 38-83 Lymphocyte % 21.8 % Low 25-47 Monocyte % 7.6 % 1-9 Eosinophil % 0.7 % 0-6 Basophil % 0.6 % 0-2 Nucleated Red Blood Cells % 0 Laboratory test 09/25/2015 Troponin-I (TnI) 0.03 ng/mL High <0.03 13 finding Laboratory test 09/19/2015 Rapid Strep Negative Negative 14 finding Molecular Laboratory test 09/19/2015 Rapid Strep A SEE RESULT BELOW 15 finding CBC Auto Diff 10/14/2014 White Blood Count 6.7 10^3/uL 4.8-10.8 Red Blood Count 4.04 10^6/uL 4.0-5.4 Hemoglobin 12.5 g/dL 12.0-16.0 Hematocrit 37 % 35-47 Mean Corpuscular Volume 92 fL 80-97 Mean Corpuscular Hemoglobin 31 pg 27-31 Mean Corpuscular HGB Conc 34 g/dL 31-36 Red Cell Distribution Width 14 % 10.5-15 Platelet Count 196 10^3/uL 150-450 Mean Platelet Volume 9 um3 7.4-10.4 Abs Neutrophils 4.8 10^3/uL 1.5-7.7 Abs Lymphocytes 1.4 10^3/uL 1.0-4.8 Abs Monocytes 0.4 10^3/uL 0-0.8 Abs Eosinophils 0 10^3/uL 0-0.6 Abs Basophils 0 10^3/uL 0-0.2 Abs Nucleated RBC 0 10^3/uL Granulocyte % 71.7 % 38-83 Lymphocyte % 20.6 % Low 25-47 Monocyte % 6.6 % 1-9 Eosinophil % 0.5 % 0-6 Basophil % 0.6 % 0-2 Nucleated Red Blood Cells % 0 Comp Metabolic Panel 10/14/2014 Sodium 135 mmol/L 133-145 Potassium 4.3 mmol/L 3.5-5.0 Chloride 99 mmol/L Low 101-111 Co2 Carbon Dioxide 28 mmol/L 22-32 Anion Gap 8 mmol/L 2-11 Glucose 107 mg/dL High 70-100 Blood Urea Nitrogen 29 mg/dL High 6-24 Creatinine 1.61 mg/dL High 0.51-0.95 BUN/Creatinine Ratio 18.0 8-20 Calcium 10.1 mg/dL 8.6-10.3 Total Protein 7.1 g/dL 6.4-8.9 Albumin 4.3 g/dL 3.2-5.2 Globulin 2.8 g/dL 2-4 Albumin/Globulin Ratio 1.5 1-3 Total Bilirubin 0.90 mg/dL 0.2-1.0 Alkaline Phosphatase 35 U/L 34-104 Alt 13 U/L 7-52 Ast 20 U/L 13-39 Egfr Non- 30.8 >60 Egfr 39.6 >60 16 Comp Metabolic Panel 10/11/2013 Sodium 134 mmol/L 133-145 17 Potassium 4.7 mmol/L 3.7-5.6 17 Chloride 98 mmol/L Low 101-111 17 Co2 Carbon Dioxide 30 mmol/L 22-32 17 Anion Gap 6 mmol/L 2-11 17 Glucose 100 mg/dL 70-100 17 Blood Urea Nitrogen 32 mg/dL High 6-24 17 Creatinine 1.82 mg/dL High 0.51-0.95 17 BUN/Creatinine Ratio 17.6 8-20 17 Calcium 9.8 mg/dL 8.6-10.3 17 Total Protein 7.1 g/dL 6.4-8.9 17 Albumin 4.3 g/dL 3.2-5.2 17 Globulin 2.8 g/dL 2-4 17 Albumin/Globulin Ratio 1.5 1-3 17 Total Bilirubin 0.70 mg/dL 0.2-1.0 17 Alkaline Phosphatase 31 U/L Low 34-104 17 Alt 10 U/L 7-52 17 Ast 19 U/L 13-39 17 Egfr Non- 26.8 >60 17 Egfr 34.5 >60 17, 18 Lipid Profile (Trig/Chol/HDL) 10/11/2013 Triglycerides 69 mg/dL 17, 19 Cholesterol 185 mg/dL 17, 20 HDL Cholesterol 67.8 mg/dL 17, 21 LDL Cholesterol 103 mg/dL 17, 22 CBC Auto Diff 10/11/2013 White Blood Count 6.4 10^3/uL 4.8-10.8 17 Red Blood Count 3.87 10^6/uL Low 4.0-5.4 17 Hemoglobin 11.1 g/dL Low 12.0-16.0 17 Hematocrit 33 % Low 35-47 17 Mean Corpuscular Volume 85 fL 80-97 17 Mean Corpuscular Hemoglobin 29 pg 27-31 17 Mean Corpuscular HGB Conc 34 g/dL 31-36 17 Red Cell Distribution Width 20 % High 10.5-15 17 Platelet Count 174 10^3/uL 150-450 17 Mean Platelet Volume 9 um3 7.4-10.4 17 Abs Neutrophils 4.0 10^3/uL 1.5-7.7 17 Abs Lymphocytes 1.6 10^3/uL 1.0-4.8 17 Abs Monocytes 0.5 10^3/uL 0-0.8 17 Abs Eosinophils 0.1 10^3/uL 0-0.6 17 Abs Basophils 0 10^3/uL 0-0.2 17 Abs Nucleated RBC 0 10^3/uL 17 Granulocyte % 63.4 % 38-83 17 Lymphocyte % 25.6 % 25-47 17 Monocyte % 8.3 % 1-9 17 Eosinophil % 2.2 % 0-6 17 Basophil % 0.5 % 0-2 17 Nucleated Red Blood Cells % 0 17 Cell Morphology 10/11/2013 Hypochromasia 1+ 17 Stool For Blood 08/08/2013 Miscellaneous Lab neg x 3 Iron & Iron Binding Capacity 07/15/2013 Iron 49 g/dL Low 50-212 Unsaturated Iron Binding 518 g/dL Total Iron Binding Capacity 567 g/dL High 250-450 % Iron Saturation 9 % Low 15-55 Laboratory test finding 07/15/2013 Ferritin < 10.0 ng/mL Low 11-307 23 Vitamin B12 And Folate Serum 07/15/2013 Vitamin B12 171 pg/mL Low 180-914 24 Folate > 20.00 ng/mL >3.99 Laboratory test finding 07/15/2013 Erythrocyte Sed Rate 14 mm/Hr 0-40 CBC Auto Diff 04/23/2013 White Blood Count 7.1 10^3/uL 4.8-10.8 Red Blood Count 3.45 10^6/uL Low 4.0-5.4 Hemoglobin 9.5 g/dL Low 12.0-16.0 Hematocrit 29 % Low 35-47 Mean Corpuscular Volume 83 fL 80-97 Mean Corpuscular Hemoglobin 28 pg 27-31 Mean Corpuscular HGB Conc 33 g/dL 31-36 Red Cell Distribution Width 14 % 10.5-15 Platelet Count 202 10^3/uL 150-450 Mean Platelet Volume 10 um3 7.4-10.4 Abs Neutrophils 5.5 10^3/uL 1.5-7.7 Abs Lymphocytes 1.0 10^3/uL 1.0-4.8 Abs Monocytes 0.6 10^3/uL 0-0.8 Abs Eosinophils 0 10^3/uL 0-0.6 Abs Basophils 0 10^3/uL 0-0.2 Abs Nucleated RBC 0 10^3/uL Granulocyte % 77.4 % 38-83 Lymphocyte % 13.5 % Low 25-47 Monocyte % 8.1 % 1-9 Eosinophil % 0.5 % 0-6 Basophil % 0.5 % 0-2 Nucleated Red Blood Cells % 0 Basic Metabolic Panel 04/23/2013 Sodium 137 mmol/L 133-145 Potassium 5.0 mmol/L 3.7-5.6 Chloride 101 mmol/L 101-111 Co2 Carbon Dioxide 27 mmol/L 22-32 Anion Gap 9 mmol/L 2-11 Glucose 102 mg/dL High 70-100 Blood Urea Nitrogen 39 mg/dL High 6-24 Creatinine 1.90 mg/dL High 0.51-0.95 BUN/Creatinine Ratio 20.5 High 8-20 Calcium 9.8 mg/dL 8.6-10.3 Egfr Non- 25.5 >60 Egfr 32.8 >60 25 CBC Auto Diff 10/03/2012 White Blood Count 6.9 10^3/uL 4.8-10.8 Red Blood Count 3.60 10^6/uL Low 4.0-5.4 Hemoglobin 10.6 g/dL Low 12.0-16.0 Hematocrit 32 % Low 35-47 Mean Corpuscular Volume 90 fL 80-97 Mean Corpuscular Hemoglobin 29 pg 27-31 Mean Corpuscular HGB Conc 33 g/dL 31-36 Red Cell Distribution Width 14 % 10.5-15 Platelet Count 169 10^3/uL 150-450 Mean Platelet Volume 10 um3 7.4-10.4 Abs Neutrophils 3.9 10^3/uL 1.5-7.7 Abs Lymphocytes 2.2 10^3/uL 1.0-4.8 Abs Monocytes 0.6 10^3/uL 0-0.8 Abs Eosinophils 0.1 10^3/uL 0-0.6 Abs Basophils 0 10^3/uL 0-0.2 Abs Nucleated RBC 0 10^3/uL Granulocyte % 57.0 % 38-83 Lymphocyte % 32.4 % 25-47 Monocyte % 8.4 % 1-9 Eosinophil % 1.5 % 0-6 Basophil % 0.7 % 0-2 Nucleated Red Blood Cells % 0.1 Comp Metabolic Panel 10/03/2012 Sodium 137 mmol/L 133-145 Potassium 5.1 mmol/L High 3.5-5.0 Chloride 102 mmol/L 101-111 Co2 Carbon Dioxide 27.0 mmol/L 22-32 Anion Gap 8.0 mmol/L 2-11 Glucose 89 mg/dL 70-100 Blood Urea Nitrogen 55 mg/dL High 6-24 Creatinine 2.20 mg/dL High 0.50-1.40 BUN/Creatinine Ratio 25.0 High 8-20 Calcium 9.7 mg/dL 8.1-9.9 Total Protein 6.6 g/dL 6.2-8.1 Albumin 4.1 g/dL 3.2-5.2 Globulin 2.5 g/dL 2-4 Albumin/Globulin Ratio 1.6 1-3 Total Bilirubin 0.9 mg/dL 0.4-1.5 Alkaline Phosphatase 30 U/L 30-110 Alt 15 U/L 14-54 Ast 23 U/L 12-42 Egfr Non- 21.6 >60 Egfr 27.8 >60 26 Lipid Profile (Trig/Chol/HDL) 10/03/2012 Triglycerides 84 mg/dL 40-200 Cholesterol 185 mg/dL Less than 200 HDL Cholesterol 66 mg/dL High 40-60 27 Cholesterol/HDL Ratio 2.8 Average 1-4.44 LDL Cholesterol 102.2 High Less Than 100 28 Lipid Profile (Trig/Chol/HDL) 07/22/2011 Triglyceride 59 mg/dL 40-200 17 Cholesterol 185 mg/dL Less Than 200 17, 29 High Density Lipoprotein 67 mg/dL High 40-60 17, 30 Cholesterol/HDL Ratio 2.76 AVERAGE 1-4.44 17 Low Density Lipoprotein 106 mg/dL High Less Than 100 17, 31 Comp Metabolic Panel 07/22/2011 Sodium 139 mmol/L 135-145 17 Potassium 4.3 mmol/L 3.5-5.0 17 Chloride 106 mmol/L 101-111 17 Co2 (Carbon Dioxide) 27.0 mmol/L 22-32 17 Anion Gap 6.0 mmol/L 2-11 17, 32 Glucose 99 mg/dL 70-100 17 BUN 29 mg/dL High 6-24 17 Creatinine 1.6 mg/dL High 0.50-1.40 17 One Over Creatinine 0.62 17 BUN/Creatinine Ratio 18.1 8-20 17 Calcium 9.7 mg/dL 8.1-9.9 17 Total Protein 6.7 GM/DL 6.2-8.1 17 Albumin 4.1 GM/DL 3.2-5.2 17 Globulin 2.6 GM/DL 2-4 17 Albumin/Globulin Ratio 1.6 1-3 17 Bilirubin Total 1.0 mg/dL 0.4-1.5 17, 33 Alkaline Phosphatase 42 U/L 30-110 17 Alt (SGPT) 18 U/L 14-54 17 Ast (Sgot) 25 U/L 12-42 17 eGFR Non- 31.3 > 60 17 eGFR 40.2 > 60 17, 34 CBC Auto Diff 07/22/2011 White Blood Count 5.4 CUMM 4.8-10.8 17 Red Cell Count 3.37 CUMM Low 4.2-5.4 17 Hemoglobin 10.6 g/dL Low 12.0-16.0 17 Hematocrit 31 % Low 35-47 17 Mean Corpuscular Volume 91 um3 79-97 17 Mean Corpuscular Hemoglob 32 pg High 27-31 17 Mean Corpuscular HGB Cone 35 g/dL 32-36 17 Redcell Distribution WDTH 13 % 10.5-15 17 Platelet Count 163 CUMM 150-450 17 Mean Platelet Volume 9.7 um3 7.4-10.4 17 Gran % 59.0 % 38-83 17 Lymph % 30.2 % 25-47 17 Mononuclear % 7.5 % 1-9 17 Eosinophil % 2.7 % 0-6 17 Basophil % 0.6 % 0-2 17 Abs Lymphs 1.6 1.0-4.8 17 Abs Mononuclear 0.4 0-0.8 17 Absolute Neutrophil Count 3.2 1.5-7.7 17 Abs Eosinophils 0.1 0-0.6 17 Abs Basophils 0 0-0.2 17 Vitamin D, 25 Hydroxy 05/04/2011 25-Hydroxy Vitamin D2 <4.0 ng/mL () 25-Hydroxy Vitamin D3 37 ng/mL () 25-Hydroxy Vitamin D Total 37 ng/mL () 35 Comp Metabolic Panel 05/04/2011 Sodium 138 mmol/L 135-145 Potassium 4.6 mmol/L 3.5-5.0 Chloride 103 mmol/L 101-111 Co2 (Carbon Dioxide) 27.0 mmol/L 22-32 Anion Gap 8.0 mmol/L 2-11 36 Glucose 98 mg/dL 70-100 BUN 51 mg/dL High 6-24 Creatinine 1.9 mg/dL High 0.50-1.40 One Over Creatinine 0.52 BUN/Creatinine Ratio 26.8 High 8-20 Calcium 9.2 mg/dL 8.1-9.9 Total Protein 7.6 GM/DL 6.2-8.1 Albumin 4.3 GM/DL 3.2-5.2 Globulin 3.3 GM/DL 2-4 Albumin/Globulin Ratio 1.3 1-3 Bilirubin Total 0.8 mg/dL 0.4-1.5 37 Alkaline Phosphatase 40 U/L 30-110 Alt (SGPT) 16 U/L 14-54 Ast (Sgot) 20 U/L 12-42 eGFR Non- 25.6 > 60 eGFR 33.0 > 60 38 CBC Auto Diff 05/04/2011 White Blood Count 5.4 CUMM 4.8-10.8 Red Cell Count 3.44 CUMM Low 4.2-5.4 Hemoglobin 10.7 g/dL Low 12.0-16.0 Hematocrit 31 % Low 35-47 Mean Corpuscular Volume 90 um3 79-97 Mean Corpuscular Hemoglob 31 pg 27-31 Mean Corpuscular HGB Cone 34 g/dL 32-36 Redcell Distribution WDTH 14 % 10.5-15 Platelet Count 172 CUMM 150-450 Mean Platelet Volume 9.8 um3 7.4-10.4 Gran % 69.3 % 38-83 Lymph % 22.8 % Low 25-47 Mononuclear % 6.0 % 1-9 Eosinophil % 1.3 % 0-6 Basophil % 0.6 % 0-2 Abs Lymphs 1.2 1.0-4.8 Abs Mononuclear 0.3 0-0.8 Absolute Neutrophil Count 3.8 1.5-7.7 Abs Eosinophils 0.1 0-0.6 Abs Basophils 0 0-0.2 Iron & Iron Binding Capacity 10/14/2010 Iron Total 71 g/dL 28-170 39 Unsaturated Iron Binding 301 g/dL 39 Total Iron Binding Capacity 372 g/dL 250-450 39 % Iron Saturation 19 % 15-55 39 Laboratory test finding 10/14/2010 Vitamin B12 > 1500 pg/mL High 180-914 39 Folic Acid 13.3 NG/ML 2-16 39 CBC With Manual Diff 10/14/2010 White Blood Count 5.9 CUMM 4.8-10.8 39 Red Cell Count 3.49 CUMM Low 4.2-5.4 39 Hemoglobin 10.9 g/dL Low 12.0-16.0 39 Hematocrit 33 % Low 35-47 39 Mean Corpuscular Volume 93 um3 79-97 39 Mean Corpuscular Hemoglob 31 pg 27-31 39 Mean Corpuscular HGB Cone 33 g/dL 32-36 39 Redcell Distribution WDTH 14 % 10.5-15 39 Platelet Count 141 CUMM Low 150-450 39 Mean Platelet Volume 9.3 um3 7.4-10.4 39 Polysegmented Neutrophil 73 % 38-83 39 Band Neutrophil 2 % 0-8 39 Lymphocyte 19 % Low 25-47 39 Monocyte 5 % 0-13 39 Eosinophil 1 % 0-6 39 Absolute Neutrophil Count 4.4 39 Hypochromasia SLIGHT 39 Urinalysis 07/13/2010 Ua Color YELLOW Yellow Appearance-Urine CLEAR Clear Specific [place]-Ur 1.003 Low 1.010-1.030 Esterase-Urine NEGATIVE Negative Nitrite NEGATIVE Negative [id number] NEGATIVE Negative Protein-Urine NEGATIVE Negative PH-Urine 7.0 5-9 Blood-Urine NEGATIVE Negative Ketones-Urine NEGATIVE Negative Bilirubin-Ur NEGATIVE Negative Glucose-Urine NEGATIVE Negative CBC Auto Diff 07/13/2010 White Blood Count 7.4 CUMM 4.8-10.8 Red Cell Count 3.35 CUMM Low 4.2-5.4 Hemoglobin 10.5 g/dL Low 12.0-16.0 Hematocrit 31 % Low 35-47 Mean Corpuscular Volume 93 um3 79-97 Mean Corpuscular Hemoglob 31 pg 27-31 Mean Corpuscular HGB Cone 34 g/dL 32-36 Redcell Distribution WDTH 14 % 10.5-15 Platelet Count 165 CUMM 150-450 Mean Platelet Volume 8.6 um3 7.4-10.4 Gran % 80.1 % 38-83 Lymph % 14.8 % Low 25-47 Mononuclear % 4.3 % 1-9 Eosinophil % 0.4 % 0-6 Basophil % 0.4 % 0-2 Abs Lymphs 1.1 1.0-4.8 Abs Mononuclear 0.3 0-0.8 Absolute Neutrophil Count 6.0 1.5-7.7 Abs Eosinophils 0 0-0.6 Abs Basophils 0 0-0.2 40 Comp Metabolic Panel 07/13/2010 Sodium 137 mmol/L 135-145 Potassium 4.5 mmol/L 3.5-5.0 Chloride 103 mmol/L 101-111 Co2 (Carbon Dioxide) 25.0 mmol/L 22-32 Anion Gap 9.0 mmol/L 2-11 41 Glucose 95 mg/dL 70-100 BUN 31 mg/dL High 6-24 Creatinine 1.50 mg/dL High 0.50-1.40 One Over Creatinine 0.60 BUN/Creatinine Ratio 20.7 High 8-20 Calcium 9.3 mg/dL 8.1-9.9 Total Protein 6.7 GM/DL 6.2-8.1 Albumin 4.0 GM/DL 3.2-5.2 Globulin 2.7 GM/DL 2-4 Albumin/Globulin Ratio 1.5 1-3 Bilirubin Total 1.1 mg/dL 0.4-1.5 42 Alkaline Phosphatase 34 U/L 30-110 Alt (SGPT) 17 U/L 14-54 Ast (Sgot) 21 U/L 12-42 eGFR Non- 33.8 > 60 eGFR 43.4 > 60 43 Laboratory test finding 07/13/2010 Magnesium 1.9 mg/dL 1.7-2.6 CPK (Creatine Kinase) 99 U/L 0-170 CKMB 07/13/2010 CKMB In NG/ML 3.1 NG/ML 0.3-4.0 % CKMB 3 %MB 0-9 44 Laboratory test finding 07/13/2010 Troponin-I 0 NG/ML 0-0.06 45 Thyroxine Free 0.97 ng/dL 0.61-1.24 TSH 1.39 MIU/ML 0.34-5.60 Urinalysis 06/06/2010 Ua Color YELLOW Yellow Appearance-Urine CLEAR Clear Specific [place]-Ur 1.004 Low 1.010-1.030 Esterase-Urine NEGATIVE Negative Nitrite NEGATIVE Negative Cmaetviszxiu-Sv-SKQ NEGATIVE Negative Protein-Urine NEGATIVE Negative PH-Urine 6.0 5-9 Blood-Urine NEGATIVE Negative Ketones-Urine NEGATIVE Negative Bilirubin-Ur NEGATIVE Negative Glucose-Urine NEGATIVE Negative CBC Auto Diff 06/06/2010 White Blood Count 5.0 CUMM 4.8-10.8 Red Cell Count 3.56 CUMM Low 4.2-5.4 Hemoglobin 10.8 g/dL Low 12.0-16.0 Hematocrit 32 % Low 35-47 Mean Corpuscular Volume 90 um3 79-97 Mean Corpuscular Hemoglob 30 pg 27-31 Mean Corpuscular HGB Cone 34 g/dL 32-36 Redcell Distribution WDTH 14 % 10.5-15 Platelet Count 170 CUMM 150-450 Mean Platelet Volume 8.5 um3 7.4-10.4 Gran % 72.7 % 38-83 Lymph % 18.3 % Low 25-47 Mononuclear % 7.1 % 1-9 Eosinophil % 1.4 % 0-6 Basophil % 0.5 % 0-2 Abs Lymphs 0.9 Low 1.0-4.8 Abs Mononuclear 0.4 0-0.8 Absolute Neutrophil Count 3.6 1.5-7.7 Abs Eosinophils 0.1 0-0.6 Abs Basophils 0 0-0.2 46 Comp Metabolic Panel 06/06/2010 Sodium 137 mmol/L 135-145 Potassium 4.6 mmol/L 3.5-5.0 Chloride 102 mmol/L 101-111 Co2 (Carbon Dioxide) 29.0 mmol/L 22-32 Anion Gap 6.0 mmol/L 2-11 47 Glucose 101 mg/dL High 70-100 BUN 40 mg/dL High 6-24 Creatinine 1.54 mg/dL High 0.50-1.40 One Over Creatinine 0.60 BUN/Creatinine Ratio 26.0 High 8-20 Calcium 9.6 mg/dL 8.1-9.9 Total Protein 7.3 GM/DL 6.2-8.1 Albumin 3.9 GM/DL 3.2-5.2 Globulin 3.4 GM/DL 2-4 Albumin/Globulin Ratio 1.1 1-3 Bilirubin Total 0.9 mg/dL 0.4-1.5 48 Alkaline Phosphatase 36 U/L 30-110 Alt (SGPT) 18 U/L 14-54 Ast (Sgot) 24 U/L 12-42 eGFR Non- 32.8 > 60 eGFR 42.1 > 60 49 Laboratory test finding 06/06/2010 Troponin-I 0 NG/ML 0-0.06 50 Iron Total 90 g/dL 28-170 Vitamin B12 129 pg/mL Low 180-914 Folic Acid 18.2 NG/ML High 2-16 Comp Metabolic Panel 04/09/2010 Sodium 137 mmol/L 135-145 Potassium 3.9 mmol/L 3.5-5.0 Chloride 101 mmol/L 101-111 Co2 (Carbon Dioxide) 28.0 mmol/L 22-32 Anion Gap 8.0 mmol/L 2-11 51 Glucose 91 mg/dL 70-100 BUN 27 mg/dL High 6-24 Creatinine 1.28 mg/dL 0.50-1.40 One Over Creatinine 0.70 BUN/Creatinine Ratio 21.1 High 8-20 Calcium 9.9 mg/dL 8.1-9.9 Total Protein 7.7 GM/DL 6.2-8.1 Albumin 4.3 GM/DL 3.2-5.2 Globulin 3.4 GM/DL 2-4 Albumin/Globulin Ratio 1.3 1-3 Bilirubin Total 1.1 mg/dL 0.4-1.5 52 Alkaline Phosphatase 38 U/L 30-110 Alt (SGPT) 19 U/L 14-54 Ast (Sgot) 24 U/L 12-42 eGFR Non- 40.5 > 60 eGFR 52.1 > 60 53 Laboratory test finding 04/09/2010 Troponin-I 0.01 NG/ML 0-0.06 54 TSH 2.20 MIU/ML 0.34-5.60 BNP Evaluatr 274.0 pg/mL High 0-100 CBC With Electronic Diff 04/09/2010 White Blood Count 5.9 CUMM 4.8-10.8 Red Cell Count 3.84 CUMM Low 4.2-5.4 Hemoglobin 11.5 g/dL Low 12.0-16.0 Hematocrit 35 % 35-47 Mean Corpuscular Volume 91 um3 79-97 Mean Corpuscular Hemoglob 30 pg 27-31 Mean Corpuscular HGB Cone 33 g/dL 32-36 Redcell Distribution WDTH 14 % 10.5-15 Platelet Count 211 CUMM 150-450 Mean Platelet Volume 8.8 um3 7.4-10.4 Gran % 62.3 % 38-83 Lymph % 28.0 % 25-47 Mononuclear % 7.7 % 1-9 Eosinophil % 1.4 % 0-6 Basophil % 0.6 % 0-2 Abs Lymphs 1.7 1.0-4.8 Abs Mononuclear 0.5 0-0.8 Absolute Neutrophil Count 3.7 1.5-7.7 Abs Eosinophils 0.1 0-0.6 Abs Basophils 0 0-0.2 Manual Differential 04/09/2010 Polysegmented Neutrophil 49 % 38-83 Lymphocyte 43 % 25-47 Monocyte 5 % 0-13 Eosinophil 1 % 0-6 Basophil 2 % 0-2 Absolute Neutrophil Count 2.8 RBC Morphology NORMAL Urinalysis 04/09/2010 Ua Color YELLOW Yellow Appearance-Urine CLEAR Clear Specific [place]-Ur 1.006 Low 1.010-1.030 Esterase-Urine NEGATIVE Negative Nitrite NEGATIVE Negative Ppqceewdjzrp-No-PPK NEGATIVE Negative Protein-Urine NEGATIVE Negative PH-Urine 6.0 5-9 Blood-Urine NEGATIVE Negative Ketones-Urine NEGATIVE Negative Bilirubin-Ur NEGATIVE Negative Glucose-Urine NEGATIVE Negative Sensitivities For Urine Culture 03/11/2010 Ampicillin 16 Amikacin <=2 Ciprofloxacin <=0.25 Ceftriaxone <=1 Cefazolin <=4 Nitrofurantoin 64 Gentamicin <=1 Imipenem <=1 Levofloxacin <=0.12 Trimeth-Sulfa <=20 Ceftazidime <=1 Tigecycline <=0.5 Piperacillin/Tazobactam <=4 Urinalysis W/Microscopic 03/11/2010 Ua Color RED Yellow Appearance-Urine CLOUDY Clear Specific [place]-Ur 1.013 1.010-1.030 Esterase-Urine 3+ Negative Nitrite NEGATIVE Negative Vpphpmfghmdv-Sg-CEY NEGATIVE Negative Protein-Urine 1+ Negative PH-Urine 6.0 5-9 Blood-Urine 3+ Negative Ketones-Urine NEGATIVE Negative Bilirubin-Ur NEGATIVE Negative Glucose-Urine NEGATIVE Negative WBC-Urine TNTC 0-5 RBC-Urine TNTC 0-2 Epith Cells-Ur SMALL None Bacteria-Urine 2+ None Urine Culture & 03/11/2010 Urine Culture KLEBSIELLA PNEUM <SEE 55 Sensitivi Sensitivi NOTE> Basic Metabolic 12/25/2009 Sodium 137 mmol/L 135-145 Panel Potassium 4.0 mmol/L 3.5-5.0 Chloride 105 mmol/L 101-111 Co2 (Carbon Dioxide) 25.0 mmol/L 22-32 Anion Gap 7.0 mmol/L 2-11 56 Glucose 97 mg/dL 70-100 57 BUN 19 mg/dL 6-24 Creatinine 1.20 mg/dL 0.50-1.40 One Over Creatinine 0.80 BUN/Creatinine Ratio 15.8 8-20 Calcium 8.6 mg/dL 8.1-9.9 eGFR Non- 46.4 > 60 eGFR 56.2 > 60 58 Urinalysis W/Microscopic 12/06/2009 Ua Color YELLOW Yellow Appearance-Urine CLEAR Clear Specific [place]-Ur 1.015 1.010-1.030 Esterase-Urine 3+ Negative Nitrite NEGATIVE Negative Rqewgjwrghaq-Fc-LXM NEGATIVE Negative Protein-Urine 1+ Negative PH-Urine 5.5 5-9 Blood-Urine TRACE Negative Ketones-Urine NEGATIVE Negative Bilirubin-Ur NEGATIVE Negative Glucose-Urine NEGATIVE Negative WBC-Urine 20-25 0-5 RBC-Urine 3-5 0-2 Mucus Urine MODERATE None Epith Cells-Ur MANY None Bacteria-Urine FEW None Amorphous Sed-U FEW None Ua Comments RARE BUDDING YEA <SEE NOTE> 59 Comp Metabolic Panel 12/06/2009 Sodium 138 mmol/L 135-145 Potassium 3.8 mmol/L 3.5-5.0 Chloride 105 mmol/L 101-111 Co2 (Carbon Dioxide) 26.0 mmol/L 22-32 Anion Gap 7.0 mmol/L 2-11 60 Glucose 108 mg/dL High 70-100 61 BUN 48 mg/dL High 6-24 Creatinine 2.39 mg/dL High 0.50-1.40 One Over Creatinine 0.40 BUN/Creatinine Ratio 20.1 High 8-20 Calcium 9.0 mg/dL 8.1-9.9 Total Protein 8.0 GM/DL 6.2-8.1 Albumin 4.6 GM/DL 3.2-5.2 Globulin 3.4 GM/DL 2-4 Albumin/Globulin Ratio 1.4 1-3 Bilirubin Total 0.8 mg/dL 0.4-1.5 62 Alkaline Phosphatase 38 U/L 30-110 Alt (SGPT) 13 U/L Low 14-54 Ast (Sgot) 21 U/L 12-42 eGFR Non- 21.0 > 60 eGFR 25.4 > 60 63 Urine Culture & Sensitivi 12/06/2009 Urine Culture Sensitivi NF1 64 CBC With Electronic Diff 12/06/2009 White Blood Count 7.2 CUMM 4.8-10.8 Red Cell Count 3.76 CUMM Low 4.2-5.4 Hemoglobin 11.5 g/dL Low 12.0-16.0 Hematocrit 34 % Low 35-47 Mean Corpuscular Volume 90 um3 79-97 Mean Corpuscular Hemoglob 31 pg 27-31 Mean Corpuscular HGB Cone 34 g/dL 32-36 Redcell Distribution WDTH 14 % 10.5-15 Platelet Count 180 CUMM 150-450 Mean Platelet Volume 7.8 um3 7.4-10.4 Gran % 73.0 % 38-83 Lymph % 19.7 % Low 25-47 Mononuclear % 5.0 % 1-9 Eosinophil % 1.7 % 0-6 Basophil % 0.6 % 0-2 Abs Lymphs 1.4 1.0-4.8 Abs Mononuclear 0.4 0-0.8 Absolute Neutrophil Count 5.3 1.5-7.7 Abs Eosinophils 0.1 0-0.6 Abs Basophils 0 0-0.2 65 Laboratory test finding 08/18/2009 Ferritin 69 NG/ML 11.0-307 CBC With Electronic Diff 08/18/2009 White Blood Count 5.4 CUMM 4.8-10.8 Red Cell Count 3.64 CUMM Low 4.2-5.4 Hemoglobin 11.1 g/dL Low 12.0-16.0 Hematocrit 33 % Low 35-47 Mean Corpuscular Volume 90 um3 79-97 Mean Corpuscular Hemoglob 31 pg 27-31 Mean Corpuscular HGB Cone 34 g/dL 32-36 Redcell Distribution WDTH 14 % 10.5-15 Platelet Count 175 CUMM 150-450 Mean Platelet Volume 9.7 um3 7.4-10.4 Gran % 74.8 % 38-83 Lymph % 17.9 % Low 25-47 Mononuclear % 6.3 % 1-9 Eosinophil % 0.6 % 0-6 Basophil % 0.4 % 0-2 Abs Lymphs 1.0 1.0-4.8 Abs Mononuclear 0.3 0-0.8 Absolute Neutrophil Count 4.0 1.5-7.7 Abs Eosinophils 0 0-0.6 Abs Basophils 0 0-0.2 66 Lipid Profile (Trig/Chol/HDL) 08/18/2009 Triglyceride 56 mg/dL 40-200 Cholesterol 177 mg/dL Less Than 200 67 High Density Lipoprotein 57 mg/dL 40-60 68 Cholesterol/HDL Ratio 3.11 AVERAGE 1-4.44 Low Density Lipoprotein 109 mg/dL High Less Than 100 69 Iron & Iron Binding Capacity 08/18/2009 Iron Total 85 g/dL 28-170 Unsaturated Iron Binding 318 g/dL Total Iron Binding Capacity 403 g/dL 250-450 % Iron Saturation 21 % 15-55 Comp Metabolic Panel 08/18/2009 Sodium 139 mmol/L 135-145 Potassium 4.4 mmol/L 3.5-5.0 Chloride 104 mmol/L 101-111 Co2 (Carbon Dioxide) 25.0 mmol/L 22-32 Anion Gap 10.0 mmol/L 2-11 70 Glucose 95 mg/dL 70-100 71 BUN 39 mg/dL High 6-24 Creatinine 2.00 mg/dL High 0.50-1.40 One Over Creatinine 0.50 BUN/Creatinine Ratio 19.5 8-20 Calcium 9.8 mg/dL 8.1-9.9 72 Total Protein 7.2 GM/DL 6.2-8.1 Albumin 4.3 GM/DL 3.2-5.2 Globulin 2.9 GM/DL 2-4 Albumin/Globulin Ratio 1.5 1-3 Bilirubin Total 1.2 mg/dL 0.4-1.5 73 Alkaline Phosphatase 44 U/L 30-110 Alt (SGPT) 20 U/L 14-54 Ast (Sgot) 25 U/L 12-42 eGFR Non- 25.8 > 60 eGFR 31.2 > [address] Hay's Lab Panel 08/18/2009 TSH 0.82 MIU/ML 0.34-5.60 Basic Metabolic Panel 02/17/2009 Sodium 138 mmol/L 135-145 75 Potassium 5.5 mmol/L High 3.5-5.0 75 Chloride 102 mmol/L 101-111 75 Co2 (Carbon Dioxide) 28.0 mmol/L 22-32 75 Anion Gap 8.0 mmol/L 2-11 75, 76 Glucose 94 mg/dL 70-100 75, 77 BUN 33 mg/dL High 6-24 75 Creatinine 1.80 mg/dL High 0.50-1.40 75 One Over Creatinine 0.50 75 BUN/Creatinine Ratio 18.3 8-20 75 Calcium 9.7 mg/dL 8.1-9.9 75, 78 eGFR Non- 29.2 > 60 75 eGFR 35.3 > 60 75, 79 CBC With Electronic Diff 08/18/2008 White Blood Count 5.4 CUMM 4.8-10.8 75 Red Cell Count 3.66 CUMM Low 4.2-5.4 75 Hemoglobin 11.2 g/dL Low 12.0-16.0 75 Hematocrit 33 % Low 35-47 75 Mean Corpuscular Volume 90 um3 79-97 75 Mean Corpuscular Hemoglob 31 pg 27-31 75 Mean Corpuscular HGB Cone 34 g/dL 32-36 75 Redcell Distribution WDTH 13 % 10.5-15 75 Platelet Count 152 CUMM 150-450 75 Mean Platelet Volume 9.3 um3 7.4-10.4 75 Gran % 75.0 % 38-83 75 Lymph % 18.5 % Low 25-47 75 Mononuclear % 5.1 % 1-9 75 Eosinophil % 1.2 % 0-6 75 Basophil % 0.2 % 0-2 75 Abs Lymphs 1.0 1.0-4.8 75 Abs Mononuclear 0.3 0-0.8 75 Absolute Neutrophil Count 4.1 1.5-7.7 75 Abs Eosinophils 0.1 0-0.6 75 Abs Basophils 0 0-0.2 75, 80 Basic Metabolic Panel 08/18/2008 Sodium 139 mmol/L 135-145 75 Potassium 4.5 mmol/L 3.5-5.0 75 Chloride 102 mmol/L 101-111 75 Co2 (Carbon Dioxide) 27.0 mmol/L 22-32 75 Anion Gap 10.0 mmol/L 2-11 75, 81 Glucose 97 mg/dL 70-100 75, 82 BUN 38 mg/dL High 6-24 75 Creatinine 1.50 mg/dL High 0.50-1.40 75 One Over Creatinine 0.60 75 BUN/Creatinine Ratio 25.3 High 8-20 75 Calcium 9.5 mg/dL 8.1-9.9 75, 83 Iron & Iron Binding Capacity 03/20/2008 Iron Total 76 g/dL 28-170 75 Unsaturated Iron Binding 370 g/dL 75 Total Iron Binding Capacity 446 g/dL 250-450 75 % Iron Saturation 17 % 15-55 75 Laboratory test finding 03/20/2008 Ferritin 33 NG/ML 11.0-307 75 CBC With Electronic Diff 03/20/2008 White Blood Count 4.9 CUMM 4.8-10.8 75 Red Cell Count 3.69 CUMM Low 4.2-5.4 75 Hemoglobin 11.3 g/dL Low 12.0-16.0 75 Hematocrit 33 % Low 35-47 75 Mean Corpuscular Volume 90 um3 79-97 75 Mean Corpuscular Hemoglob 31 pg 27-31 75 Mean Corpuscular HGB Cone 34 g/dL 32-36 75 Redcell Distribution WDTH 14 % 10.5-15 75 Platelet Count 175 CUMM 150-450 75 Mean Platelet Volume 9.1 um3 7.4-10.4 75 Gran % 66.1 % 38-83 75 Lymph % 24.7 % Low 25-47 75 Mononuclear % 7.5 % 1-9 75 Eosinophil % 1.3 % 0-6 75 Basophil % 0.4 % 0-2 75 Abs Lymphs 1.2 1.0-4.8 75 Abs Mononuclear 0.4 0-0.8 75 Absolute Neutrophil Count 3.3 1.5-7.7 75 Abs Eosinophils 0.1 0-0.6 75 Abs Basophils 0 0-0.2 75 Basic Metabolic Panel 03/20/2008 Sodium 141 mmol/L 135-145 75 Potassium 5.7 mmol/L High 3.5-5.0 75 Chloride 107 mmol/L 101-111 75 Co2 (Carbon Dioxide) 28.0 mmol/L 22-32 75 Anion Gap 6.0 mmol/L 2-11 75, 84 Glucose 97 mg/dL 70-100 75, 85 BUN 32 mg/dL High 6-24 75 Creatinine 1.70 mg/dL High 0.50-1.40 75 One Over Creatinine 0.50 75 BUN/Creatinine Ratio 18.8 8-20 75 Calcium 9.5 mg/dL 8.1-9.9 75, 86 CBC With Electronic Diff 11/19/2007 White Blood Count 6.0 CUMM 4.8-10.8 Red Cell Count 3.75 CUMM Low 4.2-5.4 Hemoglobin 10.8 g/dL Low 12.0-16.0 Hematocrit 31 % Low 35-47 Mean Corpuscular Volume 84 um3 79-97 Mean Corpuscular Hemoglob 29 pg 27-31 Mean Corpuscular HGB Cone 34 g/dL 32-36 Redcell Distribution WDTH 17 % High 10.5-15 Platelet Count 187 CUMM 150-450 Mean Platelet Volume 10.0 um3 7.4-10.4 Gran % 73.2 % 38-83 Lymph % 18.9 % Low 20-45 Mononuclear % 6.2 % 1-9 Eosinophil % 1.3 % 0-6 Basophil % 0.4 % 0-2 Abs Lymphs 1.1 1.0-4.8 Abs Mononuclear 0.4 0-0.8 Absolute Neutrophil Count 4.4 1.5-7.7 Abs Eosinophils 0.1 0-0.6 Abs Basophils 0 0-0.2 87 Comp Metabolic Panel 11/19/2007 Sodium 141 mmol/L 135-145 Potassium 4.9 mmol/L 3.5-5.0 Chloride 105 mmol/L 101-111 Co2 (Carbon Dioxide) 28.0 mmol/L 22-32 Anion Gap 8.0 mmol/L 2-11 88 Glucose 96 mg/dL 70-100 89 BUN 31 mg/dL High 6-24 Creatinine 1.6 mg/dL High 0.5-1.4 One Over Creatinine 0.62 BUN/Creatinine Ratio 19.4 8-20 Calcium 9.6 mg/dL 8.1-9.9 90 Total Protein 7.7 GM/DL 6.2-8.1 Albumin 4.5 GM/DL 3.2-5.2 Globulin 3.2 GM/DL 2-4 Albumin/Globulin Ratio 1.4 1-3 Bilirubin Total 0.9 mg/dL 0.4-1.5 Alkaline Phosphatase 36 U/L 30-110 Alt (SGPT) 18 U/L 14-54 Ast (Sgot) 21 U/L 12-42 Lipid Profile (Trig/Chol/HDL) 11/19/2007 Triglyceride 61 mg/dL 40-200 Cholesterol 196 mg/dL Less Than 200 91 High Density Lipoprotein 68 mg/dL High 40-60 92 Cholesterol/HDL Ratio 2.88 AVERAGE 1-4.44 Low Density Lipoprotein 116 mg/dL High Less Than 100 93 Laboratory test finding 11/19/2007 TSH 0.89 MIU/ML 0.34-5.60 Iron & Iron Binding Capacity 11/19/2007 Iron Total 66 g/dL 28-170 Unsaturated Iron Binding 414 g/dL Total Iron Binding Capacity 480 g/dL High 250-450 % Iron Saturation 14 % Low 15-55 Laboratory test finding 11/19/2007 Ferritin 10 NG/ML Low 11.0-307 Basic Metabolic Panel 02/15/2007 One Over Creatinine 0.55 75 Anion Gap 9.0 mmol/L 2-11 75, 94 BUN 40 mg/dL High 6-24 75 Calcium 10.2 mg/dL 8.7-10.2 75 Chloride 107 mmol/L 101-111 75 Co2 (Carbon Dioxide) 29.0 mmol/L 22-32 75 Glucose 98 mg/dL 70-105 75 Potassium 4.5 mmol/L 3.5-5.0 75 Sodium 145 mmol/L 135-145 75 BUN/Creatinine Ratio 22.2 High 8-20 75 Creatinine 1.8 mg/dL High 0.5-1.4 75 Laboratory test finding 12/06/2006 Free Thyroxine 1.02 NG/ML 0.61-1.24 95, 96 Basic Metabolic Panel 12/06/2006 One Over Creatinine 0.52 95 Anion Gap 10.0 mmol/L 2-11 95, 97 BUN 27 mg/dL High 6-24 95 Calcium 9.4 mg/dL 8.7-10.2 95 Chloride 101 mmol/L 101-111 95 Co2 (Carbon Dioxide) 29.0 mmol/L 22-32 95 Glucose 108 mg/dL High 70-105 95 Potassium 5.4 mmol/L High 3.5-5.0 95 Sodium 140 mmol/L 135-145 95 BUN/Creatinine Ratio 14.2 8-20 95 Creatinine 1.9 mg/dL High 0.5-1.4 95 Laboratory test finding 12/06/2006 TSH 0.93 MIU/ML 0.34-5.60 95 Urinalysis W/Microscopic 12/06/2006 Ua Color YELLOW 95 Amorphous Sed-U 1+ 95 Appearance-Urine CLEAR 95 Bacteria-Urine 1+ 95 Bilirubin-Ur NEGATIVE Negative 95 Blood-Urine NEGATIVE Negative 95 Epith Cells-Ur MODERATE 95 Esterase-Urine TRACE Negative 95 Glucose-Urine NEGATIVE Negative 95 Hyaline Casts-Urine 0-2 95 Ketones-Urine NEGATIVE Negative 95 Mucus Urine SMALL 95 Nitrite NEGATIVE Negative 95 PH-Urine 6.5 5-9 95 Protein-Urine NEGATIVE Negative 95 RBC-Urine 0-2 0-2 95 [id number] NEGATIVE Negative 95 Specific [place]-Ur 1.005 Low 1.010-1.030 95 WBC-Urine 0-2 0-5 95 1 [facility] Severe Sepsis and Septic Shock Management Bundle Measure requires all lactic acids initially measuring >2.0 mmol/L be repeated. 2 >100 to <200 pg/mL: likely compensated congestive heart failure (CHF) 200 to 400 pg/mL: likely moderate CHF >400 pg/mL: likely moderate to severe CHF 3 Because ethnic data is not always readily available, this report includes an eGFR for both -Americans and non- Americans. The National Kidney Disease Education Program (NKDEP) does not endorse the use of the MDRD equation for patients that are not between the ages of 18 and 70, are , have extremes of body size, muscle mass, or nutritional status, or are non- or non-. According to the National Kidney Foundation, irrespective of diagnosis, the stage of the disease is based on the level of kidney function: Stage Description GFR(mL/min/1.73 m(2)) 1 Kidney damage with normal or decreased GFR 90 2 Kidney damage with mild decrease in GFR 60-89 3 Moderate decrease in GFR 30-59 4 Severe decrease in GFR 15-29 5 Kidney failure <15 (or dialysis) 4 Because ethnic data is not always readily available, this report includes an eGFR for both -Americans and non- Americans. The National Kidney Disease Education Program (NKDEP) does not endorse the use of the MDRD equation for patients that are not between the ages of 18 and 70, are , have extremes of body size, muscle mass, or nutritional status, or are non- or non-. According to the National Kidney Foundation, irrespective of diagnosis, the stage of the disease is based on the level of kidney function: Stage Description GFR(mL/min/1.73 m(2)) 1 Kidney damage with normal or decreased GFR 90 2 Kidney damage with mild decrease in GFR 60-89 3 Moderate decrease in GFR 30-59 4 Severe decrease in GFR 15-29 5 Kidney failure <15 (or dialysis) 5 Specimen Hemolyzed. Result may not be valid. Unable to report test result due to hemolysis. 6 Unable to report test result due to hemolysis. 7 Acute inflammation: >10.00 8 SEE RESULT BELOW Name: LUCIE SCHMITT : [address]: Momo Melgar MD Acct: [id number] Unit: [id number] AGE: 81 Location: ED Re03/30/17 SEX: F Status: DEP ER SPEC: [id number] ABBI: 03/30/[address] [facility] [address]: Momo Melgar MD REQ: [id number] RECD: 03/30/17 STATUS: ARGENIS FOFANA DR: Marcelo Hay III, MD _ SOURCE: URINE SPDESC: ORDERED: Urine Culture Procedure Result Reported Site Urine Culture Final 04/01/17- 0925 ML No Growth (<1,000 CFU/mL) * ML - MAIN LAB ([facility]) . END OF REPORT * ML=Testing performed at Main Lab DEPARTMENT OF PATHOLOGY, [address] [place] [address] Cristofer Wing M.D. Director [facility] # [id number] 9 Because ethnic data is not always readily available, this report includes an eGFR for both -Americans and non- Americans. The National Kidney Disease Education Program (NKDEP) does not endorse the use of the MDRD equation for patients that are not between the ages of 18 and 70, are , have extremes of body size, muscle mass, or nutritional status, or are non- or non-. According to the National Kidney Foundation, irrespective of diagnosis, the stage of the disease is based on the level of kidney function: Stage Description GFR(mL/min/1.73 m(2)) 1 Kidney damage with normal or decreased GFR 90 2 Kidney damage with mild decrease in GFR 60-89 3 Moderate decrease in GFR 30-59 4 Severe decrease in GFR 15-29 5 Kidney failure <15 (or dialysis) 10 Acute inflammation: >10.00 11 Because ethnic data is not always readily available, this report includes an eGFR for both -Americans and non- Americans. The National Kidney Disease Education Program (NKDEP) does not endorse the use of the MDRD equation for patients that are not between the ages of 18 and 70, are , have extremes of body size, muscle mass, or nutritional status, or are non- or non-. According to the National Kidney Foundation, irrespective of diagnosis, the stage of the disease is based on the level of kidney function: Stage Description GFR(mL/min/1.73 m(2)) 1 Kidney damage with normal or decreased GFR 90 2 Kidney damage with mild decrease in GFR 60-89 3 Moderate decrease in GFR 30-59 4 Severe decrease in GFR 15-29 5 Kidney failure <15 (or dialysis) 12 Because ethnic data is not always readily available, this report includes an eGFR for both -Americans and non- Americans. The National Kidney Disease Education Program (NKDEP) does not endorse the use of the MDRD equation for patients that are not between the ages of 18 and 70, are , have extremes of body size, muscle mass, or nutritional status, or are non- or non-. According to the National Kidney Foundation, irrespective of diagnosis, the stage of the disease is based on the level of kidney function: Stage Description GFR(mL/min/1.73 m(2)) 1 Kidney damage with normal or decreased GFR 90 2 Kidney damage with mild decrease in GFR 60-89 3 Moderate decrease in GFR 30-59 4 Severe decrease in GFR 15-29 5 Kidney failure <15 (or dialysis) 13 Reference Range and Interpretation: TnI (ng/mL) Interpretation Less Than 0.03 ng/mL Not supportive of diagnosis of NE 0.03 - 0.50 ng/mL Indeterminate: suggest serial studies if clinically indicated. Greater than 0.5 ng/mL Consistent with diagnosis of NE 14 Talent Acquisition Manager: [id number] DE LA CRUZ Due to the increased sensitivity of molecular testing, reflex cultures are no longer performed. 15 SEE RESULT BELOW Name: LUCIE SCHMITT : [address]: Candido Jeffrey DO Acct: [id number] Unit: [id number] AGE: 79 Location: ED Re09/19/15 SEX: F Status: REG ER SPEC: [id number] ABBI: 09/19/15-[address] [facility] [address]: Candido Jeffrey DO REQ: [id number] RECD: 09/19/15 STATUS: ARGENIS FOFNAA DR: Marcelo Hay III, MD _ SOURCE: THROAT SPDESC: ORDERED: Strep A Request Procedure Result Reported Site Rapid Strep A Request Final 09/19/15- 1712 ML Specimen received for Rapid Strep A Molecular testing * ML - MAIN LAB ([facility]) . END OF REPORT * ML=Testing performed at Main Lab DEPARTMENT OF PATHOLOGY, [address] [place] [address] Cristofer Wing M.D. Director [facility] # [id number] 16 Because ethnic data is not always readily available, this report includes an eGFR for both -Americans and non- Americans. The National Kidney Disease Education Program (NKDEP) does not endorse the use of the MDRD equation for patients that are not between the ages of 18 and 70, are , have extremes of body size, muscle mass, or nutritional status, or are non- or non-. According to the National Kidney Foundation, irrespective of diagnosis, the stage of the disease is based on the level of kidney function: Stage Description GFR(mL/min/1.73 m(2)) 1 Kidney damage with normal or decreased GFR 90 2 Kidney damage with mild decrease in GFR 60-89 3 Moderate decrease in GFR 30-59 4 Severe decrease in GFR 15-29 5 Kidney failure <15 (or dialysis) 17 FASTING 18 Because ethnic data is not always readily available, this report includes an eGFR for both -Americans and non- Americans. The National Kidney Disease Education Program (NKDEP) does not endorse the use of the MDRD equation for patients that are not between the ages of 18 and 70, are , have extremes of body size, muscle mass, or nutritional status, or are non- or non-. According to the National Kidney Foundation, irrespective of diagnosis, the stage of the disease is based on the level of kidney function: Stage Description GFR(mL/min/1.73 m(2)) 1 Kidney damage with normal or decreased GFR 90 2 Kidney damage with mild decrease in GFR 60-89 3 Moderate decrease in GFR 30-59 4 Severe decrease in GFR 15-29 5 Kidney failure <15 (or dialysis) 19 Desirable <150 Borderline high 150-199 High 200-499 Very High >500 20 Desirable <200 Borderline high 200-239 High >239 21 Low <40 Desirable: 40-60 High: >60 22 Desirable <100 Near Optimal 100-129 Borderline high 130-159 High 160-189 Very High >189 23 --- 07/15/132023 --- Ferritin previously reported as: < 10.0 L ng/mL 24 Normal Range 180 to 914 Indeterminate Range 145 to 180 Deficient Range <145 25 Because ethnic data is not always readily available, this report includes an eGFR for both -Americans and non- Americans. The National Kidney Disease Education Program (NKDEP) does not endorse the use of the MDRD equation for patients that are not between the ages of 18 and 70, are , have extremes of body size, muscle mass, or nutritional status, or are non- or non-. According to the National Kidney Foundation, irrespective of diagnosis, the stage of the disease is based on the level of kidney function: Stage Description GFR(mL/min/1.73 m(2)) 1 Kidney damage with normal or decreased GFR 90 2 Kidney damage with mild decrease in GFR 60-89 3 Moderate decrease in GFR 30-59 4 Severe decrease in GFR 15-29 5 Kidney failure <15 (or dialysis) 26 Because ethnic data is not always readily available, this report includes an eGFR for both -Americans and non- Americans. The National Kidney Disease Education Program (NKDEP) does not endorse the use of the MDRD equation for patients that are not between the ages of 18 and 70, are , have extremes of body size, muscle mass, or nutritional status, or are non- or non-. According to the National Kidney Foundation, irrespective of diagnosis, the stage of the disease is based on the level of kidney function: Stage Description GFR(mL/min/1.73 m(2)) 1 Kidney damage with normal or decreased GFR 90 2 Kidney damage with mild decrease in GFR 60-89 3 Moderate decrease in GFR 30-59 4 Severe decrease in GFR 15-29 5 Kidney failure <15 (or dialysis) 27 HDL Interpretation: Undesirable: High Risk: Less than 40 mg/dL Desirable: Low Risk: Greater than 60 mg/dL 28 LDL Interpretation: Low Risk Optimal Level: LDL Less than 100 mg/dL Near or Above Optimal: LDL 100-129 mg/dL Borderline High Risk: LDL 130-159 mg/dL High Risk: LDL 160-189 mg/dL Very High Risk: LDL Greater than 189 mg/dL 29 CHOLESTEROL INTERPRETATION: Desirable: Less than 200 MG/DL Borderline-High Risk: 200-239 MG/DL High-Risk: 240 MG/DL and over 30 HDL INTERPRETATION: Undesirable: High Risk: Less than 40 MG/DL Desirable: Low Risk: Greater than 60 MG/DL 31 LDL INTERPRETATION: Low Risk Optimal Level: LDL Less than 100 MG/DL Near or Above Optimal: LDL 100-129 MG/DL Borderline High Risk: LDL 130-159 MG/DL High Risk: LDL 160-189 MG/DL Very High Risk: LDL Greater than 189 MG/DL 32 Anion gap measurement may be of limited value in the presence of any alkalosis, especially in a combined acid base disorder. . 33 A metabolite of Naproxen, O-desmethylnaproxen, has been shown to interfere with the Jendrassik-Leasburg method for measuring total bilirubin. Samples from patients who have taken Naproxen have shown spurious elevation in total bilirubin levels. 34 Because ethnic data is not always readily available, this report includes an eGFR for both -Americans and non- Americans. The National Kidney Disease Education Program (NKDEP) does not endorse the use of the MDRD equation for patients that are not between the ages of 18 and 70, are , have extremes of body size, muscle mass, or nutritional status, or are non- or non-. According to the National Kidney Foundation, irrespective of diagnosis, the stage of the disease is based on the level of kidney function: Stage Description GFR(mL/min/1.73 m(2)) 1 Kidney damage with normal or decreased GFR 90 2 Kidney damage with mild decrease in GFR 60-89 3 Moderate decrease in GFR 30-59 4 Severe decrease in GFR 15-29 5 Kidney failure <15 (or dialysis) 35 -- REFERENCE VALUE -- 25-HYDROXY D TOTAL (D2+D3) Optimum levels in the normal population are 25-80 Test Performed by: [facility] [address] [place] [id number] Director Medical Economics: Luis Zeng III, M.D. 36 Anion gap measurement may be of limited value in the presence of any alkalosis, especially in a combined acid base disorder. . 37 A metabolite of Naproxen, O-desmethylnaproxen, has been shown to interfere with the Jendrassik-Leasburg method for measuring total bilirubin. Samples from patients who have taken Naproxen have shown spurious elevation in total bilirubin levels. 38 Because ethnic data is not always readily available, this report includes an eGFR for both -Americans and non- Americans. The National Kidney Disease Education Program (NKDEP) does not endorse the use of the MDRD equation for patients that are not between the ages of 18 and 70, are , have extremes of body size, muscle mass, or nutritional status, or are non- or non-. According to the National Kidney Foundation, irrespective of diagnosis, the stage of the disease is based on the level of kidney function: Stage Description GFR(mL/min/1.73 m(2)) 1 Kidney damage with normal or decreased GFR 90 2 Kidney damage with mild decrease in GFR 60-89 3 Moderate decrease in GFR 30-59 4 Severe decrease in GFR 15-29 5 Kidney failure <15 (or dialysis) 39 NON FASTING 40 Lymphopenia % 41 Anion gap measurement may be of limited value in the presence of any alkalosis, especially in a combined acid base disorder. . 42 A metabolite of Naproxen, O-desmethylnaproxen, has been shown to interfere with the Jendrassik-Leasburg method for measuring total bilirubin. Samples from patients who have taken Naproxen have shown spurious elevation in total bilirubin levels. 43 Because ethnic data is not always readily available, this report includes an eGFR for both -Americans and non- Americans. The National Kidney Disease Education Program (NKDEP) does not endorse the use of the MDRD equation for patients that are not between the ages of 18 and 70, are , have extremes of body size, muscle mass, or nutritional status, or are non- or non-. According to the National Kidney Foundation, irrespective of diagnosis, the stage of the disease is based on the level of kidney function: Stage Description GFR(mL/min/1.73 m(2)) 1 Kidney damage with normal or decreased GFR 90 2 Kidney damage with mild decrease in GFR 60-89 3 Moderate decrease in GFR 30-59 4 Severe decrease in GFR 15-29 5 Kidney failure <15 (or dialysis) 44 INTERPRETATION %CK-MB < 5% NOT SUPPORTIVE OF DIAGNOSIS OF NE 5 - <10% INDETERMINATE; SUGGEST SERIAL STUDIES IF CLINICALLY INDICATED 10% OR > CONSISTENT WITH DIAGNOSIS OF NE . 45 New Reference Range and Interpretation effective 11/30/2001 TnI (ng/ml) INTERPRETATION Less Than 0.06 ng/mL NOT SUPPORTIVE OF DIAGNOSIS OF NE 0.06 - 0.50 ng/ml INDETERMINATE: SUGGEST SERIAL STUDIES IF CLINICALLY INDICATED. Greater than 0.5 ng/mL CONSISTENT WITH DIAGNOSIS OF NE . 46 Lymphopenia % 47 Anion gap measurement may be of limited value in the presence of any alkalosis, especially in a combined acid base disorder. . 48 A metabolite of Naproxen, O-desmethylnaproxen, has been shown to interfere with the Jendrassik-Leroy method for measuring total bilirubin. Samples from patients who have taken Naproxen have shown spurious elevation in total bilirubin levels. 49 Because ethnic data is not always readily available, this report includes an eGFR for both -Americans and non- Americans. The National Kidney Disease Education Program (NKDEP) does not endorse the use of the MDRD equation for patients that are not between the ages of 18 and 70, are , have extremes of body size, muscle mass, or nutritional status, or are non- or non-. According to the National Kidney Foundation, irrespective of diagnosis, the stage of the disease is based on the level of kidney function: Stage Description GFR(mL/min/1.73 m(2)) 1 Kidney damage with normal or decreased GFR 90 2 Kidney damage with mild decrease in GFR 60-89 3 Moderate decrease in GFR 30-59 4 Severe decrease in GFR 15-29 5 Kidney failure <15 (or dialysis) 50 New Reference Range and Interpretation effective 11/30/2001 TnI (ng/ml) INTERPRETATION Less Than 0.06 ng/mL NOT SUPPORTIVE OF DIAGNOSIS OF NE 0.06 - 0.50 ng/ml INDETERMINATE: SUGGEST SERIAL STUDIES IF CLINICALLY INDICATED. Greater than 0.5 ng/mL CONSISTENT WITH DIAGNOSIS OF NE . 51 Anion gap measurement may be of limited value in the presence of any alkalosis, especially in a combined acid base disorder. . 52 A metabolite of Naproxen, O-desmethylnaproxen, has been shown to interfere with the Jendrassik-Leasburg method for measuring total bilirubin. Samples from patients who have taken Naproxen have shown spurious elevation in total bilirubin levels. 53 Because ethnic data is not always readily available, this report includes an eGFR for both -Americans and non- Americans. The National Kidney Disease Education Program (NKDEP) does not endorse the use of the MDRD equation for patients that are not between the ages of 18 and 70, are , have extremes of body size, muscle mass, or nutritional status, or are non- or non-. According to the National Kidney Foundation, irrespective of diagnosis, the stage of the disease is based on the level of kidney function: Stage Description GFR(mL/min/1.73 m(2)) 1 Kidney damage with normal or decreased GFR 90 2 Kidney damage with mild decrease in GFR 60-89 3 Moderate decrease in GFR 30-59 4 Severe decrease in GFR 15-29 5 Kidney failure <15 (or dialysis) 54 New Reference Range and Interpretation effective 11/30/2001 TnI (ng/ml) INTERPRETATION Less Than 0.06 ng/mL NOT SUPPORTIVE OF DIAGNOSIS OF NE 0.06 - 0.50 ng/ml INDETERMINATE: SUGGEST SERIAL STUDIES IF CLINICALLY INDICATED. Greater than 0.5 ng/mL CONSISTENT WITH DIAGNOSIS OF NE . 55 KLEBSIELLA PNEUMONIAE >100^>100,000 ORGANISMS/ML (MANY)^CCU 56 Anion gap measurement may be of limited value in the presence of any alkalosis, especially in a combined acid base disorder. . 57 Note change in reference range as of 10/18/07. The change was based on recommendations from the [place] [employer]. 58 Because ethnic data is not always readily available, this report includes an eGFR for both -Americans and non- Americans. The National Kidney Disease Education Program (NKDEP) does not endorse the use of the MDRD equation for patients that are not between the ages of 18 and 70, are , have extremes of body size, muscle mass, or nutritional status, or are non- or non-. According to the National Kidney Foundation, irrespective of diagnosis, the stage of the disease is based on the level of kidney function: Stage Description GFR(mL/min/1.73 m(2)) 1 Kidney damage with normal or decreased GFR 90 2 Kidney damage with mild decrease in GFR 60-89 3 Moderate decrease in GFR 30-59 4 Severe decrease in GFR 15-29 5 Kidney failure <15 (or dialysis) 59 RARE BUDDING YEAST 60 Anion gap measurement may be of limited value in the presence of any alkalosis, especially in a combined acid base disorder. . 61 Note change in reference range as of 10/18/07. The change was based on recommendations from the [place] [employer]. 62 A metabolite of Naproxen, O-desmethylnaproxen, has been shown to interfere with the Jendrassik-Leroy method for measuring total bilirubin. Samples from patients who have taken Naproxen have shown spurious elevation in total bilirubin levels. 63 Because ethnic data is not always readily available, this report includes an eGFR for both -Americans and non- Americans. The National Kidney Disease Education Program (NKDEP) does not endorse the use of the MDRD equation for patients that are not between the ages of 18 and 70, are , have extremes of body size, muscle mass, or nutritional status, or are non- or non-. According to the National Kidney Foundation, irrespective of diagnosis, the stage of the disease is based on the level of kidney function: Stage Description GFR(mL/min/1.73 m(2)) 1 Kidney damage with normal or decreased GFR 90 2 Kidney damage with mild decrease in GFR 60-89 3 Moderate decrease in GFR 30-59 4 Severe decrease in GFR 15-29 5 Kidney failure <15 (or dialysis) 64 SPECIMEN CONTAINS NORMAL URETHRAL OR PERINEAL MICHELLE AND DOES NOT SUGGEST URINARY TRACT INFECTION 65 Lymphopenia % 66 Lymphopenia % 67 CHOLESTEROL INTERPRETATION: Desirable: Less than 200 MG/DL Borderline-High Risk: 200-239 MG/DL High-Risk: 240 MG/DL and over 68 HDL INTERPRETATION: Undesirable: High Risk: Less than 40 MG/DL Desirable: Low Risk: Greater than 60 MG/DL 69 LDL INTERPRETATION: Low Risk Optimal Level: LDL Less than 100 MG/DL Near or Above Optimal: LDL 100-129 MG/DL Borderline High Risk: LDL 130-159 MG/DL High Risk: LDL 160-189 MG/DL Very High Risk: LDL Greater than 189 MG/DL 70 Anion gap measurement may be of limited value in the presence of any alkalosis, especially in a combined acid base disorder. . 71 Note change in reference range as of 10/18/07. The change was based on recommendations from the [place] [employer]. 72 Please note change in reference range effective 07 . 73 A metabolite of Naproxen, O-desmethylnaproxen, has been shown to interfere with the Jendrassik-Leasburg method for measuring total bilirubin. Samples from patients who have taken Naproxen have shown spurious elevation in total bilirubin levels. 74 Because ethnic data is not always readily available, this report includes an eGFR for both -Americans and non- Americans. The National Kidney Disease Education Program (NKDEP) does not endorse the use of the MDRD equation for patients that are not between the ages of 18 and 70, are , have extremes of body size, muscle mass, or nutritional status, or are non- or non-. According to the National Kidney Foundation, irrespective of diagnosis, the stage of the disease is based on the level of kidney function: Stage Description GFR(mL/min/1.73 m(2)) 1 Kidney damage with normal or decreased GFR 90 2 Kidney damage with mild decrease in GFR 60-89 3 Moderate decrease in GFR 30-59 4 Severe decrease in GFR 15-29 5 Kidney failure <15 (or dialysis) 75 PATIENT MAY HAVE RESULTS PER DOCTOR'S AUTHORIZATION. Questions regarding this report should be directed to your doctor. 76 Anion gap measurement may be of limited value in the presence of any alkalosis, especially in a combined acid base disorder. . 77 Note change in reference range as of 10/18/07. The change was based on recommendations from the [place] [employer]. 78 Please note change in reference range effective 07 . 79 Because ethnic data is not always readily available, this report includes an eGFR for both -Americans and non- Americans. The National Kidney Disease Education Program (NKDEP) does not endorse the use of the MDRD equation for patients that are not between the ages of 18 and 70, are , have extremes of body size, muscle mass, or nutritional status, or are non- or non-. According to the National Kidney Foundation, irrespective of diagnosis, the stage of the disease is based on the level of kidney function: Stage Description GFR(mL/min/1.73 m(2)) 1 Kidney damage with normal or decreased GFR 90 2 Kidney damage with mild decrease in GFR 60-89 3 Moderate decrease in GFR 30-59 4 Severe decrease in GFR 15-29 5 Kidney failure <15 (or dialysis) 80 Lymphopenia % 81 Anion gap measurement may be of limited value in the presence of any alkalosis, especially in a combined acid base disorder. . 82 Note change in reference range as of 10/18/07. The change was based on recommendations from the [place] [employer]. 83 Please note change in reference range effective 07 . 84 Anion gap measurement may be of limited value in the presence of any alkalosis, especially in a combined acid base disorder. . 85 Note change in reference range as of 10/18/07. The change was based on recommendations from the [place] [employer]. 86 Please note change in reference range effective 07 . 87 Lymphopenia % 1+ Anisocytosis 88 Anion gap measurement may be of limited value in the presence of any alkalosis, especially in a combined acid base disorder. . 89 Note change in reference range as of 10/18/07. The change was based on recommendations from the [place] [employer]. 90 Please note change in reference range effective 07 . 91 CHOLESTEROL INTERPRETATION: Desirable: Less than 200 MG/DL Borderline-High Risk: 200-239 MG/DL High-Risk: 240 MG/DL and over 92 HDL INTERPRETATION: Undesirable: High Risk: Less than 40 MG/DL Desirable: Low Risk: Greater than 60 MG/DL 93 LDL INTERPRETATION: Low Risk Optimal Level: LDL Less than 100 MG/DL Near or Above Optimal: LDL 100-129 MG/DL Borderline High Risk: LDL 130-159 MG/DL High Risk: LDL 160-189 MG/DL Very High Risk: LDL Greater than 189 MG/DL 94 Anion gap measurement may be of limited value in the presence of any alkalosis, especially in a combined acid base disorder. . 95 FASTING 96 PLEASE NOTE NEW REFERENCE RANGES. 97 Anion gap measurement may be of limited value in the presence of any alkalosis, especially in a combined acid base disorder. . Procedures Date CPT Code Description Status 07/08/2016 91538 ECHO Transthoracic, Real-Time 2D With Doppler And Color Completed Flow 06/30/2015 Bone Mineral Density Test Completed 03/27/2013 Bone Mineral Density Test Completed 03/27/2013 Mammogram Completed 04/27/2011 Bone Mineral Density Test Completed 06/21/2010 99706 Admin Of Inj Completed 04/14/2010 90545 ECHO Transthoracic, Real-Time 2D With Doppler And Color Completed Flow 05/15/2002 22945 Color Doppler Completed 05/15/2002 97902 Pulse Doppler & Continuous Wave Completed 05/15/2002 92257 Echocardiogram Completed Encounters Type Date Location Provider CPT E/M Dx Office Visit 06/23/2017 11:00a [facility] Internal Medicine Marcelo Hay, 85257 I10 - Yvonne Sanders R60.0 M40.295 Office Visit 04/03/2017 2:20p [facility] Internal Medicine Marcelo Hay, 94677 R60.0 - Yvonne Sanders I10 Office Visit 06/22/2016 10:20a [facility] Internal Medicine Marcelo Hay, 33635 I10 Yvonne Sanders M81.0 M40.295 R01.1 D64.9 Office Visit 09/30/2015 4:00p [facility] Internal Medicine Lima Hay, 94165 I10 Gilbert Sanders Office Visit 06/23/2015 10:00a [facility] Internal Medicine Lima Hay, 52300 I10 Gilbert Sanders M81.0 Office Visit 01/06/2015 2:00p [facility] Fredy Shah, 18455 M47.812 Of Raymundo Sanders Office Visit 04/24/2014 2:00p [facility] Internal Medicine Marcelo Hay, 27691 401.1 - Gilbert Sanders 733.00 285.9 v03.82 Office Visit 04/23/2013 2:00p [facility] Internal Medicine Marcelo Hay 13096 401.1 - Gilbert Sanders 733.00 285.9 Office Visit 04/19/2012 3:40p [facility] Internal Medicine Marcelo Hay 58548 401.1 - Gilbert Sanders 733.00 737.19 Office Visit 10/18/2011 3:40p [facility] Internal Medicine Marcelo Hay 94251 401.1 - Gilbert Sanders 733.00 Office Visit 04/18/2011 3:40p [facility] Count Includes [facility], 52469 401.1 [facility] M.D. 733.00 285.9 Office Visit 10/13/2010 4:00p DO Not Use [employer] AT Count Includes [facility], 96453 401.1 [facility] M.D. 782.3 733.00 285.9 Office Visit 07/21/2010 2:20p DO Not Use [employer] AT Count Includes [facility], 75630 401.1 [place] M.D. Office Visit 06/21/2010 3:40p DO Not Use [employer] AT Count Includes [facility], 28585 386.19 [place] M.D. 281.1 Office Visit 04/12/2010 2:40p DO Not Use [employer] AT Count Includes [facility], 75463 401.1 [place] M.D. 782.3 Office Visit 03/16/2010 2:20p DO Not Use [employer] AT Count Includes [facility], 72149 599.0 [facility] M.D. Office Visit 03/08/2010 3:40p DO Not Use [employer] AT Count Includes [facility], 58868 401.1 [place] M.D. 782.3 285.9 733.00 Office Visit 12/09/2009 11:40a DO Not Use [employer] AT Count Includes [facility], 86377 276.51 [facility] M.D. 401.1 Office Visit 08/18/2009 11:20a DO Not Use [employer] AT Count Includes [facility], 07414 401.1 [place] M.D. 285.9 733.00 715.00 Office Visit 02/17/2009 10:00a DO Not Use [employer] AT Count Includes [facility], 73292 401.1 [place] M.D. 733.00 782.3 Office Visit 09/11/2008 10:15a [facility] AT Count Includes [facility], 13200 999.5 [facility] M.D. Office Visit 08/18/2008 10:00a [facility] AT Count Includes [facility], 60653 285.9 [facility] M.D. 401.1 733.00 Office Visit 03/20/2008 10:30a [facility] AT Count Includes [facility], 60815 285.9 [facility] 733.00 401.1 Office Visit 11/19/2007 11:00a [facility] AT Count Includes [facility], 55926 733.00 [facility] 401.1 V06.5 V03.82 Office Visit 05/17/2007 10:45a [facility] AT Count Includes [facility], 66658 733.00 [facility] 401.1 Office Visit 02/15/2007 10:00a [facility] AT Count Includes [facility], 34132 782.3 [facility] 401.1 Office Visit 12/18/2006 10:15a [facility] AT Count Includes [facility], 93091 715.00 [facility] 401.1 Office Visit 12/04/2006 10:45a [facility] AT Count Includes [facility], 10828 401.1 [facility] 785.9 V04.81 737.19 Plan of Care Future Appointment(s):12/25/2017 11:40 am - Marcelo Hay M.D. at [facility] Internal Medicine - [place]29/07/2018 - Marcelo Hay M.D.I50.9 Heart failure, unspecifiedNew Orders:Echocardiogram
[2017-09-01 17:27] LABS: ABS Basophils 0 10^3/ul (0-0.2); ABS Eosinophils 0 10^3/ul (0-0.6); ABS Lymphocytes 0.7 10^3/ul (1.0-4.8); ABS Monocytes 0.5 10^3/ul (0-0.8); ABS Neutrophils 5.4 10^3/ul (1.5-7.7); ABS Nucleated RBC 0 10^3/ul; Eosinophil % 0.2 % (0-6); Hematocrit 35 % (35-47); Hemoglobin 12.1 g/dl (12.0-16.0); Lymphocyte % 10.7 % (25-47); Mean Corpuscular HGB Conc 35 g/dl (31-36); Mean Corpuscular Hemoglobin 31 pg (27-31); Mean Corpuscular Volume 90 fL (80-97); Mean Platelet Volume 7.9 um3 (7.4-10.4); Nucleated Red Blood Cells % 0; Platelet Count 195 10^3/ul (150-450); Red Cell Distribution Width 14 % (10.5-15); White Blood Count 6.6 10^3/ul (3.5-10.8)
[2017-09-01 17:34] LABS: INR 0.94 (0.77-1.02)
[2017-09-01 17:49] LABS: EGFR Non-African American 48.5 (>60)
[2017-09-01 18:03] LABS: Urine Appearance Clear; Urine Blood Negative (Negative); Urine Color Straw; Urine Ketones Negative (Negative); Urine Protein Negative (Negative); Urine Specific Gravity 1.004 (1.010-1.030); Urine Urobilinogen Negative (Negative)
[2017-09-01 20:23] VITALS: BP 153/80
--- NOTE | 2017-09-01 21:12 | ED ---
Marychuy Serrato Rebecca, scribed for Wilbert Benites MD on 09/01/17 at 1651 . Complex/Multi-Sys Presentation - HPI Summary HPI Summary: Pt is an 81 y/o F who presents to ED c/o bilateral LE swelling and RLE erythema. Reports that her legs are chronically swollen, though became worse a few days ago and have been gradually worsening. Erythema was worse yesterday than it is today. Associated pain is currently mild, ranked 2/10. Sx aggravated and alleviated by nothing. Notes drainage from the right lower leg. Additionally c/o lightheadedness. 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 Denies cough, congestion. - History Of Current Complaint Chief Complaint: EDFever Time Seen by Provider: 09/01/17 16:37 Hx Obtained From: Patient Onset/Duration: Gradual Onset, Lasting Days, Still Present Severity Currently: Mild - 2/10 Location: Pain At: - Bilateral LE Aggravating Factor(s): Nothing Alleviating Factor(s): Nothing Associated Signs And Symptoms: Positive: Nausea, Fever - Allergies/Home Medications Allergies/Adverse Reactions: Allergies Allergy/AdvReac Type Severity Reaction Status Date / Time captopril Allergy Hives Verified 08/01/17 13:23 clindamycin [From Cleocin] Allergy Unknown Verified 08/01/17 15:15 Reaction Details valsartan Allergy Dizziness Verified 09/01/17 16:27 PMH/Surg Hx/FS Hx/Imm Hx Cardiovascular History: Reports: Hx Hypertension Musculoskeletal History: Reports: Hx Osteoporosis Sensory History: Denies: Hx Legally Blind, Hx Deafness Opthamlomology History: Denies: Hx Legally Blind - Cancer History Hx Chemotherapy: No Hx Radiation Therapy: No - Surgical History Surgery Procedure, Year, and Place: GOITER, HYSTERECTOMY, CARPAL TUNNEL - Immunization History Date of Influenza Vaccine: 11/2016 Infectious Disease History: No Infectious Disease History: Denies: Traveled Outside the [place] in Last 30 Days - Family History Known Family History: Positive: Hypertension Negative: Diabetes, Renal Disease, Respiratory Disease, Seizure Disorder - Social History Alcohol Use: None Hx Substance Use: No Substance Use Type: Reports: None Hx Tobacco Use: Yes Smoking Status (MU): Former Smoker Review of Systems Positive: Fever - 101.8 on triage Positive: Other - NEGATIVE: Congestion Negative: Cough Positive: Edema - Bilateral LE Positive: Other - RLE erythema and drainage Neurological: Other - Lightheadedness All Other Systems Reviewed And Are Negative: Yes Physical Exam - Summary Physical Exam Summary: Appearance: The patient is well-nourished in no acute distress and in no acute pain. Skin: The skin is warm and dry and skin color reflects adequate perfusion. HEENT: The head is normocephalic and atraumatic. The pupils are equal and reactive. The conjunctivae are clear and without drainage. Nares are patent and without drainage. Mouth reveals moist mucous membranes and the throat is without erythema and exudate. The external ears are intact. The ear canals are patent and without drainage. The tympanic membranes are intact. Neck: The neck is supple with full range of motion and non-tender. There are no carotid bruits. There is no neck vein distension. Respiratory: Chest is non-tender. Lungs are clear to auscultation and breath sounds are symmetrical and equal. Cardiovascular: Heart is regular rate and rhythm. There is no murmur or rub auscultated. There is no peripheral edema and pulses are symmetrical and equal. Abdomen: The abdomen is soft and non-tender. There are normal bowel sounds heard in all four quadrants and there is no organomegaly palpated. Musculoskeletal: There is no back tenderness noted. Extremities are non-tender with full range of motion. There is good capillary refill. The right lower leg is edematous and erythematous and there is an open area on the posterior aspect that is weeping. Neurological: Patient is alert and oriented to person, place and time. The patient has symmetrical motor strength in all four extremities. Cranial nerves are grossly intact. Deep tendon reflexes are symmetrical and equal in all four extremities. Psychiatric: The patient has an appropriate affect and does not exhibit any anxiety or depression. Triage Information Reviewed: Yes Vital Signs On Initial Exam: Initial Vitals Temp Pulse Resp BP Pulse Ox 101.8 F 73 20 154/119 96 09/01/17 16:20 09/01/17 16:20 09/01/17 16:20 09/01/17 16:20 09/01/17 16:20 Vital Signs Reviewed: Yes Diagnostics - Vital Signs Vital Signs Temp Pulse Resp BP Pulse Ox 09/01/17 16:20 101.8 F 73 20 154/119 96 - Laboratory Lab Results: Lab Results 09/01/17 09/01/17 09/01/17 Range/Units 17:10 17:17 17:17 WBC 6.6 (3.5-10.8) 10^3/ul RBC 3.90 L (4.00-5.40) 10^6/ul Hgb 12.1 (12.0-16.0) g/dl Hct 35 (35-47) % MCV 90 (80-97) fL MCH 31 (27-31) pg MCHC 35 (31-36) g/dl RDW 14 (10.5-15) % Plt Count 195 (150-450) 10^3/ul MPV 7.9 (7.4-10.4) um3 Neut % (Auto) 81.8 (38-83) % Lymph % (Auto) 10.7 L (25-47) % [place] % (Auto) 7.0 (0-7) % Eos % (Auto) 0.2 (0-6) % Baso % (Auto) 0.3 (0-2) % Absolute Neuts (auto) 5.4 (1.5-7.7) 10^3/ul Absolute Lymphs (auto) 0.7 L (1.0-4.8) 10^3/ul Absolute Monos (auto) 0.5 (0-0.8) 10^3/ul Absolute Eos (auto) 0 (0-0.6) 10^3/ul Absolute Basos (auto) 0 (0-0.2) 10^3/ul Absolute Nucleated RBC 0 10^3/ul Nucleated RBC % 0 INR (Anticoag Therapy) 0.94 (0.77-1.02) Sodium (135-145) mmol/L Potassium (3.5-5.0) mmol/L Chloride (101-111) mmol/L Carbon Dioxide (22-32) mmol/L Anion Gap (2-11) mmol/L BUN (6-24) mg/dL Creatinine (0.51-0.95) mg/dL Est GFR ( Amer) (>60) Est GFR (Non-Af Amer) (>60) BUN/Creatinine Ratio (8-20) Glucose (70-100) mg/dL Lactic Acid (0.5-2.0) mmol/L Calcium (8.6-10.3) mg/dL Total Bilirubin (0.2-1.0) mg/dL AST (13-39) U/L ALT (7-52) U/L Alkaline Phosphatase (34-104) U/L Troponin I (<0.04) ng/mL C-Reactive Protein (<8.01) mg/L Total Protein (6.4-8.9) g/dL Albumin (3.2-5.2) g/dL Globulin (2-4) g/dL Albumin/Globulin Ratio (1-3) Urine Color Straw Urine Appearance Clear Urine pH 7.0 (5-9) Ur Specific [place] 1.004 L (1.010-1.030) Urine Protein Negative (Negative) Urine Ketones Negative (Negative) Urine Blood Negative (Negative) Urine Nitrate Negative (Negative) Urine Bilirubin Negative (Negative) Urine Urobilinogen Negative (Negative) Ur Leukocyte Esterase Negative (Negative) Urine Glucose Negative (Negative) 09/01/17 09/01/17 Range/Units 17:17 17:17 WBC (3.5-10.8) 10^3/ul RBC (4.00-5.40) 10^6/ul Hgb (12.0-16.0) g/dl Hct (35-47) % MCV (80-97) fL MCH (27-31) pg MCHC (31-36) g/dl RDW (10.5-15) % Plt Count (150-450) 10^3/ul MPV (7.4-10.4) um3 Neut % (Auto) (38-83) % Lymph % (Auto) (25-47) % [place] % (Auto) (0-7) % Eos % (Auto) (0-6) % Baso % (Auto) (0-2) % Absolute Neuts (auto) (1.5-7.7) 10^3/ul Absolute Lymphs (auto) (1.0-4.8) 10^3/ul Absolute Monos (auto) (0-0.8) 10^3/ul Absolute Eos (auto) (0-0.6) 10^3/ul Absolute Basos (auto) (0-0.2) 10^3/ul Absolute Nucleated RBC 10^3/ul Nucleated RBC % INR (Anticoag Therapy) (0.77-1.02) Sodium 124 L (135-145) mmol/L Potassium 4.3 (3.5-5.0) mmol/L Chloride 88 L (101-111) mmol/L Carbon Dioxide 31 (22-32) mmol/L Anion Gap 5 (2-11) mmol/L BUN 21 (6-24) mg/dL Creatinine 1.08 H (0.51-0.95) mg/dL Est GFR ( Amer) 58.6 (>60) Est GFR (Non-Af Amer) 48.5 (>60) BUN/Creatinine Ratio 19.4 (8-20) Glucose 108 H (70-100) mg/dL Lactic Acid 0.6 (0.5-2.0) mmol/L Calcium 9.4 (8.6-10.3) mg/dL Total Bilirubin 0.70 (0.2-1.0) mg/dL AST 25 (13-39) U/L ALT 17 (7-52) U/L Alkaline Phosphatase 36 (34-104) U/L Troponin I 0.01 (<0.04) ng/mL C-Reactive Protein 1.81 (<8.01) mg/L Total Protein 6.9 (6.4-8.9) g/dL Albumin 4.2 (3.2-5.2) g/dL Globulin 2.7 (2-4) g/dL Albumin/Globulin Ratio 1.6 (1-3) Urine Color Urine Appearance Urine pH (5-9) Ur Specific [place] (1.010-1.030) Urine Protein (Negative) Urine Ketones (Negative) Urine Blood (Negative) Urine Nitrate (Negative) Urine Bilirubin (Negative) Urine Urobilinogen (Negative) Ur Leukocyte Esterase (Negative) Urine Glucose (Negative) Result Diagrams: 09/01/17 17:17 18 17:17 Lab Statement: Any lab studies that have been ordered have been reviewed, and results considered in the medical decision making process. Re-Evaluation - Re-Evaluation First Eval Re-Evaluation Time: 19:32 Comment: Pt feels fine, has gotten up and walked to the bathroom with her daughter. Complex Multi-Symp Course/Dx Course Of Treatment: Ms. Newton presented to the emergency department complaining of not feeling well. She was found to have a fever but was not aware of it. She had an obvious cellulitis in her right lower extremity and she was given fluids and antibiotics while labs were obtained. Her labs are generally good although she did have a hyponatremia of 124. This should've improved some with normal saline and it was recommended she have close follow-up. She ambulated about the department several times with no distress and her vitals remained stable. - Diagnoses Provider Diagnoses: Hyponatremia, Cellulitis Discharge - Sign-Out/Discharge Documenting (check all that apply): Discharge/Admit/Transfer - Discharge - Discharge Plan Condition: Stable Disposition: HOME Prescriptions: Cephalexin CAP* [Keflex CAP*] 500 mg PO QID #40 cap Patient Education Materials: Cellulitis (ED), Hyponatremia (ED) Referrals: Marcelo Hay MD [Primary Care Provider] - 3 Days Additional Instructions: RETURN TO ED FOR ANY NEW OR WORSENING SYMPTOMS. - Billing Disposition and Condition Condition: STABLE Disposition: Home The documentation as recorded by the Marychuy esposito Rebecca accurately reflects the service I personally performed and the decisions made by me, Wilbert Benites MD.
--- NOTE | 2017-09-02 07:45 | ED ---
Progress - Progress Note Progress Note: Patient's wound culture reveals staph aureus. Negative for MRSA. Patient was diagnosed with cellulitis and started on Keflex. No change in treatment at this time. Re-Evaluation - Re-Evaluation First Eval Re-Evaluation Time: 19:32 Comment: Pt feels fine, has gotten up and walked to the bathroom with her daughter. Course/Dx - Course Course Of Treatment: Ms. Newton presented to the emergency department complaining of not feeling well. She was found to have a fever but was not aware of it. She had an obvious cellulitis in her right lower extremity and she was given fluids and antibiotics while labs were obtained. Her labs are generally good although she did have a hyponatremia of 124. This should've improved some with normal saline and it was recommended she have close follow-up. She ambulated about the department several times with no distress and her vitals remained stable. - Diagnoses Provider Diagnoses: Hyponatremia, Cellulitis Discharge - Sign-Out/Discharge Documenting (check all that apply): Post-Discharge Follow Up - Discharge Plan Condition: Stable Disposition: HOME Prescriptions: Cephalexin CAP* [Keflex CAP*] 500 mg PO QID #40 cap Patient Education Materials: Cellulitis (ED), Hyponatremia (ED) Referrals: Marcelo Hay MD [Primary Care Provider] - 3 Days Additional Instructions: RETURN TO ED FOR ANY NEW OR WORSENING SYMPTOMS. - Billing Disposition and Condition Condition: STABLE Disposition: Home
== END | disposition home or self-care (01) ==
LOC: ED 16:15
DX: E87.1 Hypo-osmolality and hyponatremia (principal); L03.115 Cellulitis of right lower limb; I10 Essential (primary) hypertension; M81.0 Age-related osteoporosis without current pathological fracture; Z87.891 Personal history of nicotine dependence
CPT/HCPCS: 36415; 80053; 81003; 83605; 84484; 85025; 85610; 86140; 87040; 87070; 87077; 87186; 87205; 87640; 87641; 96360; 96374; 99283; J0690

== ENCOUNTER 2017-09-14 04:52 | Observation (INO) | payer MEDICARE ==
[2017-09-14] MEDS ORDERED: NS 0.9% 1000 ML*IV.FLUID IV ONE (05:39)
[2017-09-14] MEDS ORDERED: ceFAZolin 1 GM ADVAN(*) 1 GM in NS 0.9% 50 ML* 50 ML IVPB ONE (05:39)
[2017-09-14] MEDS ORDERED: NS 0.9% 50 ML* 50 ML ONE (06:22)
--- NOTE | 2017-09-14 06:22 | ED ---
Neurological HPI - HPI Summary HPI Summary: A 81 y/o female presents to ED c/o body shakes and general weakness. According to the patient, she just does not feel right. As per triage, "Patient states increased ""shakeyness"" since this morning. Patient states she has been recently been on abx for cellulitis on the legs and completed them on Monday". ( 09/11/17). She stated that this morning the shakes and general weakness started after she attempted to go to bed by lying down on a recliner. The symptoms started around 0300, however she still carried on with her daily morning routine activities. After some time, she felt general weakness and weakness to ambulate, so she sat down in her kitchen for an hour or so, but nothing had changed. She decided to call her daughter. Additionally, her legs are shaky to the point that her daughter feels the shakes when assisting the patient. Pt denies any chills, fever, chest pain, SOB, headache, dizziness, cough, or pain/ burning with urination. As per daughter, she noted that her mother, the patient , is not one to complain about not feeling well, however, this time, something is definitely wrong as her mother is concerned enough to the point where she doesn't want to wait for evaluation at her appointment with her PCP, Dr. Hay , at 1430 today (09/14/2017). Pt lives alone, however her daughter lives nearby. Pt was on Cephalexin for 10 days of treatment for her cellulitis on her legs ( started medication on 09/02/2017, finished 09/11/2017). She noted she had no "pep" on 09/07/2017 (she thinks it was the heat). The patient noted that the medication has helped because within 2-3 days as the symptoms were not as bad. PMHx of thyroid "thing", CHF, carpal tunnel and hysterectomy. FHx of no DM however has fam hx MA and HTN. 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 Onset/Duration: Gradual Onset, Started days ago, Worse Since - this am Timing: Constant Onset Severity: Moderate Current Severity: Moderate Neurological Deficit Location: Generalized - weakness and shakes Pain Intensity: 0 Character: Weak Aggravating: Nothing Alleviating: Nothing Associated Signs and Symptoms: Positive: Weakness TPA Considered: No - no focal neuro deficit Related Hx: Recent Illness - cellulitis bilat legs - Allergy/Home Medications Allergies/Adverse Reactions: Allergies Allergy/AdvReac Type Severity Reaction Status Date / Time captopril Allergy Hives Verified 09/14/17 05:01 clindamycin [From Cleocin] Allergy Unknown Verified 09/14/17 05:01 Reaction Details valsartan Allergy Dizziness Verified 09/14/17 05:01 Home Medications: Home Medications amLODIPine TAB* [Norvasc 5 mg TAB*] 5 mg PO DAILY 09/14/17 [History Confirmed ] PMH/Surg Hx/FS Hx/Imm Hx Previously Healthy: No Endocrine/Hematology History: Reports: Hx Thyroid Disease Cardiovascular History: Reports: Hx Congestive Heart Failure, Hx Hypertension Musculoskeletal History: Reports: Hx Osteoporosis Sensory History: Denies: Hx Legally Blind, Hx Deafness Opthamlomology History: Denies: Hx Legally Blind - Cancer History Hx Chemotherapy: No Hx Radiation Therapy: No - Surgical History Surgery Procedure, Year, and Place: GOITER, HYSTERECTOMY, CARPAL TUNNEL - Immunization History Date of Influenza Vaccine: 11/2016 Immunizations Up to Date: Yes Infectious Disease History: No Infectious Disease History: Denies: Traveled Outside the [place] in Last 30 Days - Family History Known Family History: Positive: Cardiac Disease, Hypertension, Other Negative: Diabetes, Renal Disease, Respiratory Disease, Seizure Disorder - Social History Lives: Alone Alcohol Use: None Hx Substance Use: No Substance Use Type: Reports: None Hx Tobacco Use: Yes Smoking Status (MU): Former Smoker Review of Systems Positive: Other - POSITIVE: Shakes. Negative: Fever, Chills Negative: Chest Pain Respiratory: Negative Negative: Cough Gastrointestinal: Negative Negative: burning, pain Skin: Negative Neurological: Other - POSITIVE: Generalized weakness; NEGATIVE: Dizziness Positive: Weakness. Negative: Headache Psychological: Normal All Other Systems Reviewed And Are Negative: Yes Physical Exam - Summary Physical Exam Summary: Appearance: ill-appearing, no pain distress, well-nourished, afebrile Skin:Warm, color reflects adequate perfusion, dry Head:Normal Head/Face inspection, atraumatic Eyes: Conjunctiva clear ENT:Normal inspection Neck:Supple, no nodes, no JVD Respiratory: rales bilat half way up, no respiratory distress Cardio: RRR, No murmur, pulses normal, brisk capillary refill Abdomen: Soft, nontender Bowel sounds: Present Musculoskeletal: kyphosis, Strength Intact/ROM intact, no calf tenderness, 2+ pedal edema, bilat redness from ankles to knees, symmetric Psychological: Normal Neuro: Alert, muscle tone normal, no focal deficit, baseline resting tremor in hands (chronic per pt and daughter), no other "shakes" noted Triage Information Reviewed: Yes Vital Signs On Initial Exam: Initial Vitals Temp Pulse Resp BP Pulse Ox 99.0 F 80 16 169/84 97 09/14/17 04:52 09/14/17 04:52 09/14/17 04:52 09/14/17 04:52 09/14/17 04:52 Vital Signs Reviewed: Yes Diagnostics - Vital Signs Vital Signs Temp Pulse Resp BP Pulse Ox 09/14/17 05:23 79 18 157/76 95 09/14/17 04:52 99.0 F 80 16 169/84 97 - Laboratory Result Diagrams: 09/15/17 06:54 09/15/17 06:54 Lab Statement: Any lab studies that have been ordered have been reviewed, and results considered in the medical decision making process. - Radiology CXR Radiology Interpretation Completed By: ED Physician - infiltrate RML. No significant change from 08/01/2017 - EKG 0546 Cardiac Rate: NL - 75 BPM EKG Rhythm: Sinus Rhythm EKG Interpretation: 1st deg. AV block(238),prolonged IVCT LBBB pattern(146),nl QTc no acute ch EKG Comparison: No Significant Change - 08/11/2017. Re-Evaluation - Re-Evaluation First Eval Re-Evaluation Time: 06:55 Change: Unchanged Comment: agrees to admission, no change. Course/Dx - Course Course Of Treatment: With pt's symptoms of shakiness and recent antibiotics for cellulitis, sepsis protocol was initiated for skin as possible source. White count, CRP, CXR do not support sepsis. Fluids DC'd. BNP elevated at 546, but was higher previously. Pt is on Lasix every [address] Tineo who advised Lasix 20mg IV in ED and will evaluate. 0844: Dr. Tineo will admit for observation because pt is still "shakey". - Differential Dx Differential Diagnoses Neuro: Positive: Coronary Artery Disease, Dysrhythmia, Labyrinthitis, Medication Reaction, Metabolic Abnormality, Other - CHF - Diagnoses Provider Diagnoses: Shakes, CHF (congestive heart failure), Cellulitis - Physician Notifications Discussed Care Of Patient With: Wendy Tineo Time Discussed With Above Provider: 07:00 Instructed by Provider To: Admit As Observation Discharge - Sign-Out/Discharge Documenting (check all that apply): Patient Departure - admit - Discharge Plan Condition: Stable Disposition: ADMITTED TO [facility] - Billing Disposition and Condition Condition: STABLE Disposition: Admitted to [facility]
[2017-09-14 06:27] LABS: ABS Basophils 0 10^3/ul (0-0.2); ABS Eosinophils 0.1 10^3/ul (0-0.6); ABS Lymphocytes 0.9 10^3/ul (1.0-4.8); ABS Monocytes 0.6 10^3/ul (0-0.8); ABS Neutrophils 4.8 10^3/ul (1.5-7.7); ABS Nucleated RBC 0 10^3/ul; Eosinophil % 1.5 % (0-6); Hematocrit 35 % (35-47); Hemoglobin 11.6 g/dl (12.0-16.0); Lymphocyte % 13.8 % (25-47); Mean Corpuscular HGB Conc 34 g/dl (31-36); Mean Corpuscular Hemoglobin 31 pg (27-31); Mean Corpuscular Volume 91 fL (80-97); Mean Platelet Volume 7.7 um3 (7.4-10.4); Nucleated Red Blood Cells % 0; Platelet Count 202 10^3/ul (150-450); Red Blood Count 3.79 10^6/ul (4.00-5.40); Red Cell Distribution Width 14 % (10.5-15); White Blood Count 6.3 10^3/ul (3.5-10.8)
[2017-09-14] MEDS ORDERED: ceFAZolin 1 GM in Dextrose (*) 1 GM/50 ML BAG IVPB ONE (06:39)
[2017-09-14 06:40] LABS: INR 0.86 (0.77-1.02)
[2017-09-14 06:41] LABS: Urine Appearance Clear; Urine Blood Negative (Negative); Urine Color Straw; Urine Ketones Negative (Negative); Urine Protein Negative (Negative); Urine Specific Gravity 1.006 (1.010-1.030); Urine Urobilinogen Negative (Negative)
[2017-09-14 06:44] LABS: EGFR Non-African American 40.9 (>60)
[2017-09-14] MEDS ORDERED: Furosemide IV* 10 MG/ML 2 ML VIAL (20 MG) IV ONE (07:49)
[2017-09-14] MEDS ORDERED: Al Hydrox/Mg Hydrox/Simet LIQ* 30 ML UDC PO PRN (08:41)
[2017-09-14] MEDS ORDERED: Acetaminophen TAB* 325 MG PO PRN (08:41)
--- NOTE | 2017-09-14 09:12 | RAD ---
HISTORY: shakey, cellulitis COMPARISONS: August 01, 2017 VIEWS: 1: frontal portable view of the chest at 6:57 AM FINDINGS: LINES AND TUBES: None. CARDIOMEDIASTINAL SILHOUETTE: The cardiac silhouette is enlarged. The cardiomediastinal silhouette is otherwise normal for portable technique. PLEURA: The costophrenic angles are sharp. No pleural abnormalities are noted. LUNG PARENCHYMA: There is hyperinflation. ABDOMEN: The upper abdomen is clear. There is no subphrenic gas. BONES AND SOFT TISSUES: Degenerative changes are noted along the spine. IMPRESSION: CARDIOMEGALY. COPD.
--- NOTE | 2017-09-14 10:50 | HP ---
CC: Dr. Hay * HISTORY AND PHYSICAL: DATE OF ADMISSION: 09/14/17 PRIMARY CARE PROVIDER: Dr. Hay. CHIEF COMPLAINT: "Shakiness." HISTORY OF PRESENT ILLNESS: Ms. Newton is an 81-year-old female who recently has had problems with diagnosis of congestive heart failure and leg edema for which she was placed on Lasix, scheduled 3 times a week. Previously she would take it on as needed basis. She also was noted to have abnormal pulse oximetry at night and she is awaiting a sleep study evaluation to be performed by Dr. Smith at the beginning of September of 2017. In addition to that, she was diagnosed with leg cellulitis for which she was placed on Keflex 10 days ago. She just finished a course of her antibiotic within the past couple of days. Patient stated that today in the morning at 3 a.m., she got up from the recliner that she fell asleep to go to the bathroom. She went to urinate as she usually does at 3 a.m. From 3 a.m. to 4 a.m., she was walking around the house, fed her cat and was talking to her cat and she felt baseline until all of a sudden she started getting "shaky." I believe that what patient is explaining to me when she is trying to clarify "shaky," means mostly generalized weakness. She stated that she felt not herself and she felt weak and she called her daughter to bring her to the hospital. In the hospital here , when she was walking to the bathroom, she still complained of feeling shaky. She does have baseline tremor, which as per patient is not abnormal or new. Her orthostatic blood pressures went from 160s to 140s when she sat up and when she stood up it was back to 160s. She does have bilateral leg edema with increased warmth and erythema, which appears and could be questionable for bilateral cellulitis, although this is very symmetrical. The patient is going to be placed on overnight observation to rule out cellulitis, to evaluate with Physical Therapy, Occupational Therapy for safe ambulation at home. We will also evaluate her fluid status with her history of recent diagnosis of CHF. PAST MEDICAL HISTORY: 1. History of diastolic CHF. 2. History of heart murmur since childhood. Her recent echocardiogram in July of 2017 showed EF of 55% to 60% and mild mitral regurgitation. 3. History of hypertension with recent problems with control of hypertension. Patient was started on Norvasc within the past week. 4. History of cervical spondylosis. 5. History of anemia. 6. History of abnormal pulse oximetry at night. 7. History of osteoporosis. MEDICATIONS AT HOME: Include: 1. Lasix 40 mg 3 times a week. 2. Norvasc 5 mg daily. 3. Aspirin 81 mg daily. 4. Atenolol 100 mg daily. 5. Fosamax 70 mg weekly. 6. Caltrate with vitamin D 1 tablet daily. 7. Vitamin B12 6000 mcg daily. 8. Ferrous sulfate 5 mL daily. 9. Potassium chloride 20 mEq daily. 10. Diovan 160 mg daily. FAMILY HISTORY: Father positive for heart attacks, of heart disease in his 60s. Mother had history of pacemaker placement and of old age at the age of 87. Patient has 2 brothers with heart disease, one of them in his 50s of heart attack. SOCIAL HISTORY: Patient has history of remote smoking over 20 years ago. She denies any alcohol or drug use. She lives by herself and used to live with her son, who of brain trauma 6 years ago. Currently, she lives alone. She ambulates with a cane. Her daughter, Sagrario George, daughter from [place], [place] is her surrogate. REVIEW OF SYSTEMS: Please see history of present illness. In addition to above mentioned, patient stated that patient's leg edema has actually been getting better. She is unable to tell me her daily weights. She could not comment on the erythema, if it is worse or not. She stated that her weight had been stable, although she does not remember the number. Her appetite has been good. All the remaining 14 systems were reviewed with the patient and were otherwise negative. PHYSICAL EXAMINATION GENERAL: The patient is a very pleasant 80-year-old female who is in no acute distress. Alert, awake, and oriented x3. VITAL SIGNS: Blood pressure 166/89 when lying down with a heart rate of 88. When sitting up, the patient's blood pressure went down to 146/86 with a heart rate of 85 and when standing up her blood pressure was up to 166/86 with a heart rate of 89. Patient's oxygen saturation was 100% on room air. Heart rate in the 80s. Temperature of 99.0. HEENT: Head: Atraumatic, normocephalic. Eyes: Pupils are equal, reactive to light and accommodation. Oropharynx is clear. Mucosa moist. NECK: Supple. No JVD. No bruits bilaterally. RESPIRATORY: Crackles at bilateral bases, left more than right. CARDIOVASCULAR: Regular rate and rhythm with a 3/6 systolic ejection murmur to auscultation of the apex and entire precordium. ABDOMEN: Soft, nontender. Bowel sounds present in all 4 quadrants. EXTREMITIES: +1 pitting pedal edema. Pulses +2 bilaterally. There is no clubbing, no cyanosis. The skin overlying patient's area from the bilateral ankles to bilateral knees is with chronic edema, erythema with increased warmth. It does appear to be questionable for cellulitis at this point. NEUROLOGIC EVALUATION: Speech clear. Cranial nerves II through XII grossly intact. Motor strength is 5/5 bilaterally. Patient ambulates steadily with a rolling walker with baseline tremor noted. PSYCHIATRIC EVALUATION: Oriented x3 with no evidence of anxiety or depression; rather poor historian. DIAGNOSTIC STUDIES/LAB DATA: Laboratory data showed sodium of 132, potassium 4.4, chloride 93, carbon dioxide 31, BUN 28, creatinine 1.25. Liver function is unremarkable. B-natriuretic peptide was 573. C-reactive protein of 5.2. White blood cell count of 6.3, hemoglobin of 11.6, hematocrit of 35, and platelets of 202, ESR of 21. Urinalysis was unremarkable. Portable chest x-ray showed cardiomegaly and mild interstitial edema. Comparing with the chest x-ray from July 2017, basically unchanged. ASSESSMENT AND PLAN: 1. Generalized weakness in patient who may have cellulitis, although her inflammatory markers are not elevated, including no leukocytosis. At this point , patient is allergic to clindamycin, just finished a course of Keflex, and she is going to be placed on doxycycline at this point. Blood cultures were obtained and are pending. I suspect the shakiness that she is trying to explain is due to generalized weakness. Physical Therapy and Occupational Therapy will see the patient for evaluation. The patient should ambulate with a walker at discharge. 2. In regard to patient's congestive heart failure, patient's creatinine had been at baseline elevated dating back to 2012. At this point, it appears the patient is either euvolemic or slightly hypovolemic. She did have positive orthostasis from lying down to sitting, but then no positive orthostatic vital signs when she was standing up. At this point, I will continue her medications as taken at home including with daily weights and intake and output summaries. We will discontinue her Diovan due to recent reports of carcinogenic sepsis as being present in the medication. She may require to have her Norvasc increased due to discontinuation of Diovan. 3. In regard to patient's hypertension, please see above. 4. Patient's code status is full and her surrogate is her daughter. 5. Chronic renal insufficiency, stage 3, is at baseline with creatinine in the baseline. We will continue to monitor throughout the patient's hospital stay. TIME SPENT: Approximately 68 minutes was spent on admission of this patient; more than half that time was spent [id number] with the patient during the interview and physical exam. [id number]/[facility] #: [id number] MTDD
[2017-09-14] MEDS: DOXYcycline CAP(*) 100 MG PO SCH ×2 (11:14→21:09)
[2017-09-14] MEDS: Potassium Chlor TAB* 20 MEQ TAB.ER PO SCH (11:14)
[2017-09-14] MEDS: Aspirin 81 mg CHEW TAB* 81 MG TAB.CHEW PO SCH (11:17)
[2017-09-14] MEDS: Atenolol TAB* 50 MG PO SCH (11:17)
[2017-09-14] MEDS: amLODIPine TAB* 5 MG PO SCH (11:17)
[2017-09-14] MEDS: Docusate CAP* 100 MG PO SCH ×2 (11:18→21:09)
[2017-09-14] MEDS: Cyanocobalamin TAB* 500 MCG PO SCH (15:08)
[2017-09-14] MEDS: Heparin VIAL(*) 5000 UNITS/ML VIAL (FIVE THOUSAND) SUBCUT SCH ×2 (15:12→21:09)
[2017-09-15] MEDS ORDERED: diPHENhydraMINE PO* 25 MG PO ONE (00:49)
[2017-09-15] MEDS ORDERED: diPHENhydraMINE PO* 25 MG ONE (00:55)
[2017-09-15] MEDS: Heparin VIAL(*) 5000 UNITS/ML VIAL (FIVE THOUSAND) SUBCUT SCH ×2 (05:59→14:42)
[2017-09-15 07:03] LABS: ABS Basophils 0.1 10^3/ul (0-0.2); ABS Eosinophils 0.1 10^3/ul (0-0.6); ABS Lymphocytes 1.4 10^3/ul (1.0-4.8); ABS Monocytes 0.6 10^3/ul (0-0.8); ABS Neutrophils 3.5 10^3/ul (1.5-7.7); ABS Nucleated RBC 0 10^3/ul; Eosinophil % 2.3 % (0-6); Hematocrit 31 % (35-47); Hemoglobin 10.6 g/dl (12.0-16.0); Lymphocyte % 23.6 % (25-47); Mean Corpuscular HGB Conc 34 g/dl (31-36); Mean Corpuscular Hemoglobin 31 pg (27-31); Mean Corpuscular Volume 90 fL (80-97); Mean Platelet Volume 7.4 um3 (7.4-10.4); Nucleated Red Blood Cells % 0; Platelet Count 183 10^3/ul (150-450); Red Blood Count 3.43 10^6/ul (4.00-5.40); Red Cell Distribution Width 14 % (10.5-15); White Blood Count 5.7 10^3/ul (3.5-10.8)
[2017-09-15] MEDS ORDERED: Furosemide TAB* 40 MG PO SCH (09:00)
[2017-09-15] MEDS: amLODIPine TAB* 5 MG PO SCH (09:02)
[2017-09-15] MEDS: DOXYcycline CAP(*) 100 MG PO SCH (09:02)
[2017-09-15] MEDS: Atenolol TAB* 50 MG PO SCH (09:02)
[2017-09-15] MEDS: Aspirin 81 mg CHEW TAB* 81 MG TAB.CHEW PO SCH (09:02)
[2017-09-15] MEDS: Potassium Chlor TAB* 20 MEQ TAB.ER PO SCH (09:02)
[2017-09-15] MEDS: Docusate CAP* 100 MG PO SCH (09:02)
[2017-09-15] MEDS: Cyanocobalamin TAB* 500 MCG PO SCH (09:09)
[2017-09-15 11:48] VITALS: BP 128/54
--- NOTE | 2017-09-15 14:38 | DS ---
CC: Dr. Hay * DISCHARGE SUMMARY: DATE OF ADMISSION: 09/14/17 DATE OF DISCHARGE: 09/15/17 PRIMARY CARE PROVIDER: Dr. Hay. DISCHARGE DIAGNOSES: 1. Generalized weakness. 2. Cellulitis in bilateral lower extremities. SECONDARY DIAGNOSES: 1. History of cellulitis, diagnosed as outpatient and treated with Keflex for 10 days. 2. Diastolic congestive heart failure. 3. History of heart murmur since childhood. 4. History of hypertension. 5. History of cervical spondylosis. 6. Anemia. 7. History of possibly obstructive sleep apnea. 8. Osteoporosis. MEDICATIONS AT DISCHARGE: Include: 1. Doxycycline 100 mg p.o. b.i.d. for 7 days total. 2. Lasix 40 mg 3 times a day. 3. Norvasc 5 mg daily. 4. Aspirin 81 mg daily. 5. Atenolol 100 mg daily. 6. Fosamax 70 mg weekly. 7. Caltrate with vitamin D 1 tablet daily. 8. Vitamin B12 6000 mcg daily. 9. Ferrous sulfate 5 mL daily. 10. Potassium chloride 20 mEq daily. The patient's Diovan was discontinued for 2 reasons. Firstly, the patient's blood pressure had been controlled ever since her admission without Diovan and secondary, recently there was a question of Diovan including a carcinogenic substance and the patient is to check with her pharmacist if her Diovan is actually one of the medications that is on the FDA recall list. LABORATORY DATA AND STUDIES PERFORMED DURING THE HOSPITAL STAY: Include: On , sodium of 135, potassium 4.6, chloride 98, carbon dioxide 32, BUN 22, creatinine 1.07. White blood cell count 5.7, hemoglobin 10.6, hematocrit of 31 , and platelets of 183. Blood cultures had negative growth. HOSPITALIZATION COURSE: Charmaine Newton is an 81-year-old female who presented to the hospital complaining of feeling shaky and weak. She had bilateral lower extremity edema and erythema. It appears that she may have bilateral cellulitis and she just finished her 10-day course of Keflex a couple of days prior. She was placed on overnight observation. Her physical therapy evaluation went well and this patient was able to ambulate 150 feet without any major problems, but she is recommended to use a cane or a walker. She was placed empirically on doxycycline for the leg cellulitis and they actually did improve by the time of discharge. The patient feels stronger and she is ready to go home. I suspect the patient did have failure of outpatient treatment of cellulitis and she is going to be placed on doxycycline for a total of 7 days and discharged. Diovan was discontinued due to the above mentioned. PHYSICAL EXAM AT THE TIME OF DISCHARGE: Blood pressure of 124/54, heart rate of 63 and regular, respiratory rate 21, oxygen saturation 92% on room air, temperature 98.3. General: The patient is a very pleasant 81-year-old female, who is in no acute distress. Alert, awake, oriented x3. HEENT: Head: Atraumatic, normocephalic. Eyes: Pupils are equal, reactive to light and accommodation. Oropharynx is clear. Mucosa moist. Neck: Supple. No JVD. No bruits bilaterally. Cardiovascular: Regular rate and rhythm. Positive for 3/ 6 systolic ejection murmur on auscultation of the apex. Respiratory: Clear to auscultation bilaterally. Abdomen: Soft, nontender. Bowel sounds present in all 4 quadrants. Extremities: The edema is trace to +1 in bilateral lower extremities, much improved from prior. The patient has bilateral lower extremity erythema, less pronounced than yesterday on my evaluation. Peripheral pulses are +2 bilaterally. Neuro Evaluation: Cranial nerves II through XII grossly intact. Motor strength is 5/5 bilaterally. Please also note that the patient has significant kyphoscoliosis of her thoracic spine. The patient is recommended to follow up with her primary care provider in 4 to 7 days. Please note that this is a short summary of the patient's hospitalization. Please refer to further medical records for details. [id number]/[facility] #: [id number] [facility] HOSPITALAlessandra
== END 2017-09-15 15:00 | disposition home or self-care (01) ==
LOC: ED 04:52 → MED 08:41
PROVIDERS: ADMIT Internal Medicine; ATTEND Internal Medicine
DX: R53.1 Weakness (principal); L03.116 Cellulitis of left lower limb; L03.115 Cellulitis of right lower limb; Z87.2 Personal history of diseases of the skin and subcutaneous tissue; I50.30 Unspecified diastolic (congestive) heart failure; Z86.79 Personal history of other diseases of the circulatory system; I10 Essential (primary) hypertension; D64.9 Anemia, unspecified; M81.0 Age-related osteoporosis without current pathological fracture; Z79.82 Long term (current) use of aspirin
CPT/HCPCS: 36415; 71045; 80048; 80053; 81003; 82550; 83605; 83880; 84484; 85025; 85610; 85652; 85730; 86140; 87040; 93005; 96365; 99284; A9270-GY; G0378; G8978-GP-CI; G8979-GP-CH; J0690; J1644; J1940

== ENCOUNTER 2017-11-15 19:51 | Inpatient (IN) | payer MEDICARE ==
[2017-11-15] MEDS ORDERED: Lactated Ringers 1000 ml Bag*IV.FLUID IV ONE (20:40)
[2017-11-15 21:32] LABS: ABS Basophils 0 10^3/ul (0-0.2); ABS Eosinophils 0 10^3/ul (0-0.6); ABS Monocytes 0.5 10^3/ul (0-0.8); ABS Nucleated RBC 0 10^3/ul; Eosinophil % 0.1 % (0-6); Hematocrit 39 % (35-47); Hemoglobin 12.9 g/dl (12.0-16.0); Lymphocyte % 13.7 % (25-47); Mean Corpuscular HGB Conc 33 g/dl (31-36); Mean Corpuscular Hemoglobin 31 pg (27-31); Mean Corpuscular Volume 92 fL (80-97); Mean Platelet Volume 8.4 um3 (7.4-10.4); Nucleated Red Blood Cells % 0; Platelet Count 234 10^3/ul (150-450); Red Blood Count 4.23 10^6/ul (4.00-5.40); Red Cell Distribution Width 14 % (10.5-15); White Blood Count 7.6 10^3/ul (3.5-10.8)
[2017-11-15 21:40] LABS: INR 0.98 (0.77-1.02)
[2017-11-15 21:47] LABS: EGFR Non-African American 28.1 (>60)
[2017-11-15] MEDS ORDERED: NS 0.9% 1000 ML* 1,000 ML IV ONE ×4 (21:58→23:39)
[2017-11-15] MEDS ORDERED: Metoprolol Tartrate IV* 1 MG/ML 5 ML VIAL IV ONE (22:09)
[2017-11-15] MEDS ORDERED: Insulin LISPRO* 1 UNITS UNIT SUBCUT ONE (22:44)
[2017-11-15] MEDS ORDERED: Dextrose 50% Syringe 50 ML* 25 GM/50 ML SYRINGE IV PUSH PRN (22:44)
[2017-11-15] MEDS ORDERED: Dextrose 50% VIAL 50 ml IV ONE (22:50)
[2017-11-15] MEDS: Apixaban* 2.5 MG TAB PO SCH (23:00)
[2017-11-15] MEDS ORDERED: Dextrose 50% Syringe 50 ML* 25 GM/50 ML SYRINGE ONE (23:04)
[2017-11-15] MEDS ORDERED: Diltiazem IV* 5 MG/ML 5 ML VIAL (for loading dose/IV Push) (25 MG) IV SLOW PU ONE (23:55)
[2017-11-15] MEDS ORDERED: Diltiazem DRIP* 100 MG/100 ML ADDV.BAG IVPB ONE (23:55)
[2017-11-15] MEDS ORDERED: Acetaminophen TAB* 325 MG PO PRN (23:56)
[2017-11-15] MEDS ORDERED: Al Hydrox/Mg Hydrox/Simet LIQ* 30 ML UDC PO PRN (23:56)
[2017-11-15] MEDS ORDERED: Ondansetron INJ* 2 MG/ML VIAL IV PRN (23:56)
[2017-11-16] MEDS ORDERED: Sodium Polystyrene ORAL.SOL* 15 GM/60 ML BTL PO ONE (00:16)
--- NOTE | 2017-11-16 00:37 | ED ---
Complex/Multi-Sys Presentation - HPI Summary HPI Summary: The pt is a 81 y/o Female who is presenting to the [facility] accompanied by one other female with a chief complaint of weakness. The pt discusses a generalized weaknesses and fatigue that is ongoing. She reports normal hearing and palpitations and denies SOB, chest pain, and diarrhea. She states she has been on a medication called Lasix and later reports of bilateral lower extremity edema. PMHx includes heart murmurs. Symptoms aggravated with exertion such as walking. Symptoms alleviated by nothing. She also states that she has never been told her heartbeat was "irregular." - History Of Current Complaint Chief Complaint: EDGeneral Time Seen by Provider: 11/15/17 19:55 Hx Obtained From: Patient Onset/Duration: Still Present Timing: Constant Aggravating Factor(s): Exertion Alleviating Factor(s): Nothing Associated Signs And Symptoms: Positive: Other - Weakness, palpitations, bilateral lower extremity edema. Negative: SOB, Chest Pain, Diarrhea - Allergies/Home Medications Allergies/Adverse Reactions: Allergies Allergy/AdvReac Type Severity Reaction Status Date / Time captopril Allergy Hives Verified 09/14/17 05:01 clindamycin [From Cleocin] Allergy Unknown Verified 09/14/17 05:01 Reaction Details valsartan Allergy Dizziness Verified 09/14/17 05:01 PMH/Surg Hx/FS Hx/Imm Hx Endocrine/Hematology History: Reports: Hx Thyroid Disease, Hx Anemia Cardiovascular History: Reports: Hx Congestive Heart Failure, Hx Hypertension Musculoskeletal History: Reports: Hx Osteoporosis Comment Only: Other Musculoskeletal History - cervical spondylosis Sensory History: Reports: Hx Contacts or Glasses Denies: Hx Legally Blind, Hx Deafness, Hx Hearing Aid Opthamlomology History: Reports: Hx Contacts or Glasses Denies: Hx Legally Blind - Cancer History Hx Chemotherapy: No Hx Radiation Therapy: No - Surgical History Surgery Procedure, Year, and Place: GOITER, HYSTERECTOMY, CARPAL TUNNEL - Immunization History Date of Influenza Vaccine: 11/2016 Infectious Disease History: No Infectious Disease History: Denies: Traveled Outside the [place] in Last 30 Days - Family History Known Family History: Positive: Cardiac Disease, Hypertension, Other Negative: Diabetes, Renal Disease, Respiratory Disease, Seizure Disorder - Social History Occupation: Retired Alcohol Use: None Hx Substance Use: No Substance Use Type: Reports: None Hx Tobacco Use: Yes Smoking Status (MU): Former Smoker Review of Systems Positive: Fatigue Eyes: Negative ENT: Other - Normal hearing Cardiovascular: Other - heart palpitations Negative: Chest Pain Negative: Shortness Of Breath Negative: Diarrhea Genitourinary: Negative Positive: Edema - Bilateral lower extremity edema Skin: Negative Positive: Weakness Psychological: Normal All Other Systems Reviewed And Are Negative: Yes Physical Exam - Summary Physical Exam Summary: Appearance: Very thin body habitus Skin: warm, dry, reflects adequate perfusion Head/face: normal Eyes: EOMI, GABI ENT: mucous membranes moist Neck: supple, non-tender Respiratory: CTA, breath sounds present Cardiovascular: RRR, pulses symmetrical Abdomen: non-tender, soft, No abd tenderness Bowel Sounds: present Musculoskeletal: 2 3 + pitting edema, Significant Kyphosis of the spine, No CVA tenderness Neuro: normal, sensory motor intact, A&Ox3 Triage Information Reviewed: Yes Vital Signs On Initial Exam: Initial Vitals Temp Pulse Resp BP Pulse Ox 100.6 F 119 16 128/95 98 11/15/17 19:55 11/15/17 19:55 11/15/17 19:55 11/15/17 19:55 11/15/17 19:55 Vital Signs Reviewed: Yes Diagnostics - Vital Signs Vital Signs Temp Pulse Resp BP Pulse Ox 11/15/17 19:55 100.6 F 119 16 128/95 98 - Laboratory Lab Results: Lab Results 11/15/17 11/15/17 11/15/17 Range/Units 21:12 21:12 21:12 WBC 7.6 (3.5-10.8) 10^3/ul RBC 4.23 (4.00-5.40) 10^6/ul Hgb 12.9 (12.0-16.0) g/dl Hct 39 (35-47) % MCV 92 (80-97) fL MCH 31 (27-31) pg MCHC 33 (31-36) g/dl RDW 14 (10.5-15) % Plt Count 234 (150-450) 10^3/ul MPV 8.4 (7.4-10.4) um3 Neut % (Auto) 79.8 (38-83) % Lymph % (Auto) 13.7 L (25-47) % [place] % (Auto) 6.2 (0-7) % Eos % (Auto) 0.1 (0-6) % Baso % (Auto) 0.2 (0-2) % Absolute Neuts (auto) 6.0 (1.5-7.7) 10^3/ul Absolute Lymphs (auto) 1.0 (1.0-4.8) 10^3/ul Absolute Monos (auto) 0.5 (0-0.8) 10^3/ul Absolute Eos (auto) 0 (0-0.6) 10^3/ul Absolute Basos (auto) 0 (0-0.2) 10^3/ul Absolute Nucleated RBC 0 10^3/ul Nucleated RBC % 0 INR (Anticoag Therapy) 0.98 (0.77-1.02) APTT 28.9 (26.0-36.3) seconds Sodium 128 L (135-145) mmol/L Potassium 6.0 H (3.5-5.0) mmol/L Chloride 90 L (101-111) mmol/L Carbon Dioxide 30 (22-32) mmol/L Anion Gap 8 (2-11) mmol/L BUN 55 H (6-24) mg/dL Creatinine 1.73 H (0.51-0.95) mg/dL Est GFR ( Amer) 34.0 (>60) Est GFR (Non-Af Amer) 28.1 (>60) BUN/Creatinine Ratio 31.8 H (8-20) Glucose 97 (70-100) mg/dL Lactic Acid (0.5-2.0) mmol/L Calcium 9.7 (8.6-10.3) mg/dL Magnesium 2.0 (1.9-2.7) mg/dL Total Bilirubin 0.70 (0.2-1.0) mg/dL AST 48 H (13-39) U/L ALT 41 (7-52) U/L Alkaline Phosphatase 48 (34-104) U/L Troponin I 0.06 H* (<0.04) ng/mL C-Reactive Protein 3.91 (<8.01) mg/L B-Natriuretic Peptide ( - 100) pg/mL Total Protein 6.8 (6.4-8.9) g/dL Albumin 4.0 (3.2-5.2) g/dL Globulin 2.8 (2-4) g/dL Albumin/Globulin Ratio 1.4 (1-3) Prealbumin Pending TSH 3.06 (0.34-5.60) mcIU/mL Blood Type Antibody Screen 11/15/17 11/15/17 11/15/17 Range/Units 21:12 21:12 21:12 WBC (3.5-10.8) 10^3/ul RBC (4.00-5.40) 10^6/ul Hgb (12.0-16.0) g/dl Hct (35-47) % MCV (80-97) fL MCH (27-31) pg MCHC (31-36) g/dl RDW (10.5-15) % Plt Count (150-450) 10^3/ul MPV (7.4-10.4) um3 Neut % (Auto) (38-83) % Lymph % (Auto) (25-47) % [place] % (Auto) (0-7) % Eos % (Auto) (0-6) % Baso % (Auto) (0-2) % Absolute Neuts (auto) (1.5-7.7) 10^3/ul Absolute Lymphs (auto) (1.0-4.8) 10^3/ul Absolute Monos (auto) (0-0.8) 10^3/ul Absolute Eos (auto) (0-0.6) 10^3/ul Absolute Basos (auto) (0-0.2) 10^3/ul Absolute Nucleated RBC 10^3/ul Nucleated RBC % INR (Anticoag Therapy) (0.77-1.02) APTT (26.0-36.3) seconds Sodium (135-145) mmol/L Potassium (3.5-5.0) mmol/L Chloride (101-111) mmol/L Carbon Dioxide (22-32) mmol/L Anion Gap (2-11) mmol/L BUN (6-24) mg/dL Creatinine (0.51-0.95) mg/dL Est GFR ( Amer) (>60) Est GFR (Non-Af Amer) (>60) BUN/Creatinine Ratio (8-20) Glucose (70-100) mg/dL Lactic Acid 1.7 (0.5-2.0) mmol/L Calcium (8.6-10.3) mg/dL Magnesium (1.9-2.7) mg/dL Total Bilirubin (0.2-1.0) mg/dL AST (13-39) U/L ALT (7-52) U/L Alkaline Phosphatase (34-104) U/L Troponin I (<0.04) ng/mL C-Reactive Protein (<8.01) mg/L B-Natriuretic Peptide 1984 H ( - 100) pg/mL Total Protein (6.4-8.9) g/dL Albumin (3.2-5.2) g/dL Globulin (2-4) g/dL Albumin/Globulin Ratio (1-3) Prealbumin TSH (0.34-5.60) mcIU/mL Blood Type AB Positive Antibody Screen Negative Result Diagrams: 11/15/17 21:12 11/16/17 00:24 Lab Statement: Any lab studies that have been ordered have been reviewed, and results considered in the medical decision making process. - EKG 2202 EKG Interpretation: Afib with rapid ventricular response 116 rate, Left axis peak t-waves EKG Comparison: No Significant Change - no change on P waves Complex Multi-Symp Course/Dx Course Of Treatment: 81-year-old female who is very thin and frail presents with generalized malaise and weakness. She has lower extremity edema and has been on increasing doses of Lasix. She has acute renal failure with creatinine going from 1.0-1.7. Her potassium is slightly elevated at 6.0. T waves are peaked on her EKG however this is largely unchanged from previous. She is also in rapid atrial fibrillation. She was hydrated here with improvement. She was treated for hyperkalemia with dextrose, insulin and hydration. We have not given any calcium or bicarbonate per discussion with hospitalist. We will recheck BMP in 3 hours. Patient ambulatory to the hospitalist. - Diagnoses Differential Diagnoses/HQI/PQRI: Cardiac Ischemia, Metabolic Abnormality, Sepsis , Urinary Tract Infection Provider Diagnoses: Acute renal failure, Rapid atrial fibrillation, Hyperkalemia, Medication side effect - Physician Notifications Discussed Care Of Patient With: Aye Stack - Pt admitted to the [facility] Instructed by Provider To: Admit As Inpatient - Critical Care Time Critical Care Time: 30-74 min - Critical care time is exclusive of separately billable procedures Discharge - Sign-Out/Discharge Documenting (check all that apply): Patient Departure - Admitted to [facility] - Discharge Plan Condition: Stable Disposition: ADMITTED TO [facility] - Billing Disposition and Condition Condition: STABLE Disposition: Admitted to [facility] - Attestation Statements Document Initiated by Tremayneibe: Yes Documenting Scribe: Hawk Ibarra Provider For Whom Scribe is Documenting (Include Credential): Dr Jackson Scribe Attestation: Hawk Serrato, scribed for Dr Jackson on 11/16/17 at 0150. Scribe Documentation Reviewed: Yes Provider Attestation: The documentation as recorded by the tremayneibHawk de accurately reflects the service I personally performed and the decisions made by Dr Manuel gibbons
[2017-11-16 00:48] LABS: EGFR Non-African American 32.9 (>60)
[2017-11-16] MEDS ORDERED: Diltiazem IV VIAL* 125 MG in NS 0.9% 100 ML* 100 ML IVPB ONE (02:00)
[2017-11-16] MEDS ORDERED: NS 0.9% 500 ML* 500 ML IV ONE (03:20)
--- NOTE | 2017-11-16 05:54 | HP ---
CC: Marcelo Hay MD * HISTORY AND PHYSICAL: DATE OF ADMISSION: 11/15/17 TIME OF EVALUATION: 2300. PRIMARY CARE PHYSICIAN: Marcelo Hay MD CHIEF COMPLAINT: Weakness and fatigue. HISTORY OF PRESENT ILLNESS: This is an 81-year-old female with a past medical history of congestive heart failure and hypertension presents to the emergency room, was having fatigue and weakness for the past 2 days, stating her legs would not move. She denies any fall. She states she does check her blood pressure at home and her heart rate 2 days ago was 134 to 115. She denies any chest pain. She has had dyspnea on exertion over the past few days. No fever. No upper respiratory symptoms. No nausea, vomiting, diarrhea. No abdominal pain. No urinary symptoms. She denies any changes in her weight. States it has been steady at 117 pounds. She has had a good appetite. She states back in September, she saw her primary care physician for her lower extremity swelling and they increased her Lasix from 3 times a week to 4 times a week and increased her potassium as well. Otherwise, remaining review of systems is negative. In the emergency room, the patient had labs, imaging. She was given 2 L of fluids, IV Lopressor, 10 units of Humalog, D50 amp and referred to the hospitalist service for further evaluation. PAST MEDICAL HISTORY: 1. History of diastolic heart failure with preserved ejection fraction 55% to 60% on echo done in July 2017 and mild mitral regurgitation. 2. History of hypertension. 3. Cervical spondylosis. 4. History of anemia. 5. Question of obstructive sleep apnea at night. 6. Osteoporosis. MEDICATIONS: 1. Potassium chloride 20 mEq 4 times a week, Monday, Monday, Monday, and Monday. 2. Ferrous sulfate 220 mg daily. 3. Diovan 160 mg daily. 4. Lasix 40 mg Monday, Monday, Monday, Monday. 5. Alendronate 70 mg weekly. 6. Aspirin 81 mg daily. 7. Calcium, vitamin D daily. 8. Atenolol 100 mg daily. 9. Vitamin B12 of 6000 units daily. ALLERGIES: CAPTOPRIL, CLINDAMYCIN, VALSARTAN. FAMILY HISTORY: Mother of unknown. Father in his 60s from cardiac. Her brother has also had cardiac disease. SOCIAL HISTORY: The patient lives alone. She is independent of her ADLs. She ambulates with a cane. She was a remote smoker in her teenage years; states she never inhaled. No alcohol use. No illicit drug use. Her healthcare proxy is her son, Walt Newton. Code status, full code, but she is wavering on this. REVIEW OF SYSTEMS: A 14-point review of systems as mentioned in the HPI, otherwise negative. PHYSICAL EXAMINATION GENERAL: No acute distress, frail, elderly female with her daughter sitting at the bedside. VITAL SIGNS: T-max of 100.6, pulse rate 119, respiratory rate 16, oxygen saturation 98% on room air, blood pressure 128/95. HEENT: Head: Normocephalic. Bitemporal muscle wasting. Pupils are equal and reactive, anicteric. Oropharynx: Mucous membranes are moist. NECK: Supple. No lymphadenopathy. RESPIRATORY: Diminished breath sounds. No wheezing, rhonchi, or rales. CARDIAC: Rapid irregularly irregular rate and rhythm. Systolic murmur was found at the right sternal base. ABDOMEN: Soft, nontender, nondistended. EXTREMITIES: +2 pretibial edema. +1 DPs. NEUROLOGICAL: Alert and oriented x3. No gross focal neurologic deficits. DIAGNOSTIC STUDIES/LAB DATA: White count 7.6, hemoglobin 12.9, hematocrit 39, platelets 234. INR 0.98. Sodium 128, potassium 6, chloride 90, bicarb 30, BUN 55, creatinine 1.73. Troponin is 0.06. TSH 3.06. Radiographic Data: EKG shows atrial fibrillation with a rate of 116 and left bundle-branch block, left bundle-branch block is old, AFib is new, peaked T waves also present in the past as well. Chest x-ray, no significant changes, unremarkable. ASSESSMENT AND PLAN: This is an 81-year-old female with past medical history of congestive heart failure, hypertension, chronic lymphedema who presents to the emergency room with weakness. 1. Weakness. Assessment: I suspect her weakness is driven by her rapid atrial fibrillation. She also has a low-grade temp. There might be an underlying infectious etiology going on as well, although there are no focal findings on history and physical. She had an echo done back in July that showed diastolic heart failure. Her CHADS2 score is 5 with her history of a transient ischemic attack. Her creatinine clearance currently is 20. She was started on Eliquis at a lower dose. Plan: We will give her diltiazem bolus and place her on a drip to lower her rate, start her on Eliquis, trend her troponins. No indication for an echo at this time. We will keep her n.p.o. after midnight in case she is still in atrial fibrillation and may be a candidate for cardioversion, though with her low-grade temp, that may be driven by an infectious etiology. No urine is done yet. We will follow up on her urine. If it shows pyuria, we will start her on antibiotics and hold off on the n.p.o. status. 2. Acute renal failure. The patient with elevated BUN and creatinine. She was increased on her Lasix. This could be driven by over diuresis; however, she still has significant chronic lymphedema. Plan: We will follow up on urine , order a renal ultrasound. She did get 2 L of fluids. We will hold off on further IV fluids and hold her potassium, Diovan, and Lasix. 3. Hyperkalemia. Assessment: In the setting of worsening renal failure and potassium supplementation, she does have peaked T waves, but they are not new from prior EKG. She was given insulin dextrose. We will order a dose of Kayexalate as well and repeat her labs. Hold her Diovan, Lasix, and potassium. CHRONIC MEDICAL PROBLEMS: 1. Hypertension. We will hold her atenolol on the diltiazem drip. Continue her on the aspirin. 2. FEN. Heart-healthy diet. N.p.o. after midnight if her urine is unremarkable and no signs of infection for possible cardioversion. 3. DVT prophylaxis. The patient scores high risk. The patient will be on Eliquis. 4. Code status is full code. PATIENT TIME: Greater than 60 minutes were spent doing the history and physical , more than half the time was spent in direct patient contact. [id number]/[facility] #: [id number] BROCK
[2017-11-16 07:51] LABS: ABS Basophils 0 10^3/ul (0-0.2); ABS Eosinophils 0 10^3/ul (0-0.6); ABS Lymphocytes 1.1 10^3/ul (1.0-4.8); ABS Monocytes 0.4 10^3/ul (0-0.8); ABS Neutrophils 5.2 10^3/ul (1.5-7.7); ABS Nucleated RBC 0 10^3/ul; Eosinophil % 0.1 % (0-6); Hematocrit 35 % (35-47); Lymphocyte % 16.6 % (25-47); Mean Corpuscular HGB Conc 34 g/dl (31-36); Mean Corpuscular Hemoglobin 32 pg (27-31); Mean Corpuscular Volume 93 fL (80-97); Mean Platelet Volume 9.2 um3 (7.4-10.4); Nucleated Red Blood Cells % 0; Platelet Count 193 10^3/ul (150-450); Red Blood Count 3.79 10^6/ul (4.00-5.40); Red Cell Distribution Width 14 % (10.5-15); White Blood Count 6.7 10^3/ul (3.5-10.8)
[2017-11-16 08:10] LABS: EGFR Non-African American 35.3 (>60)
--- NOTE | 2017-11-16 08:15 | RAD ---
Indication: Fever. Single frontal view of the chest performed at 2216 hours was reviewed. Comparison is made with previous exam dated September 14, 2017. Cardiomegaly is noted. Hyperinflated lung verde are noted. There appears to be interstitial prominence in the lung bases likely due to poor inspiration. There is likely underlying chronic interstitial disease. No significant change is noted since prior exam. IMPRESSION: CARDIOMEGALY WITH PROMINENT INTERSTITIUM CONSISTENT WITH CHRONIC INTERSTITIAL DISEASE.
[2017-11-16] MEDS: Apixaban* 2.5 MG TAB PO SCH ×2 (09:05→20:50)
[2017-11-16] MEDS: Aspirin 81 mg CHEW TAB* 81 MG TAB.CHEW PO SCH (09:05)
--- NOTE | 2017-11-16 16:33 | RAD ---
Indication: Renal failure. Real-time sonography of the kidneys was performed. The right kidney measures 8.8 x 3.3 x 4.9 cm. No hydronephrosis is noted. The left kidney measures 9.0 x 5.0 x 4.4 cm. Tiny cortical cyst upper pole left kidney measuring 5 x 6 x 8 mm. No hydronephrosis is noted. There is ascites noted. Pleural effusion is noted on the left. An right side. Evaluation of the urinary bladder demonstrates no definite post void residual. Bladder wall measures 2.3 mm with bilateral ureteral jets. IMPRESSION: No hydronephrosis of either kidney is noted. Bilateral ureteral jets. Ascites and bilateral pleural effusion is noted.
[2017-11-16] MEDS ORDERED: Furosemide IV* 10 MG/ML 2 ML VIAL (20 MG) IV ONE (17:52)
--- NOTE | 2017-11-16 17:59 | PN ---
Subjective Date of Service: 11/16/17 - Yee Interval History: Patient seen and examined. No acute events today. States she feels tired but "ok ". Denies SOB but sat was high 80's low90's today. Denies chest pain, no fevers or chills or cough. Daughter at bedside. Objective Active Medications: Acetaminophen (Tylenol Tab*) 650 mg PO Q4H PRN PRN Reason: FEVER/PAIN Al Hydrox/Mg Hydrox/Simethicone (Maalox Plus*) 30 ml PO Q6H PRN PRN Reason: INDIGESTION Apixaban (Eliquis) 2.5 mg PO BID [facility] Last Admin: 11/16/17 09:05 Dose: 2.5 mg Aspirin (Aspirin 81 Mg Chew Tab*) 81 mg PO DAILY [facility] Last Admin: 11/16/17 09:05 Dose: 81 mg Dextrose (D50w Syringe 50 Ml*) 12.5 gm IV PUSH .FOR FS < 60 - SS PRN PRN Reason: FS < 60 Last Admin: 11/15/17 23:09 Dose: 25 gm Diltiazem HCl (Cardizem Tab*) 30 mg PO BID [facility] Docusate Sodium (Colace Cap*) 100 mg PO BID PRN PRN Reason: CONSTIPATION Furosemide (Lasix Iv*) 20 mg IV ONCE ONE Stop: 11/16/17 17:53 Diltiazem HCl 125 mg/ Sodium (Chloride) 125 mls @ 5 mls/hr IVPB ED ONCE ONE; Protocol Stop: 11/17/17 02:59 Last Admin: 11/16/17 07:11 Dose: Not Given Ondansetron HCl (Zofran Inj*) 4 mg IV Q4H PRN PRN Reason: NAUSEA/VOMITING Senna (Senokot Tab*) 1 tab PO BID PRN PRN Reason: CONSTIPATION Vital Signs - 8 hr 11/16/17 11/16/17 11/16/17 09:55 10:10 10:25 Temperature Pulse Rate Respiratory Rate Blood Pressure 116/73 102/60 118/72 (mmHg) O2 Sat by Pulse Oximetry 11/16/17 11/16/17 11/16/17 10:40 10:55 11:10 Temperature Pulse Rate Respiratory Rate Blood Pressure 111/68 128/79 101/64 (mmHg) O2 Sat by Pulse Oximetry 11/16/17 11/16/17 11/16/17 11:25 11:40 11:51 Temperature 99.0 F Pulse Rate 83 Respiratory 18 Rate Blood Pressure 112/67 99/59 114/72 (mmHg) O2 Sat by Pulse 81 Oximetry 11/16/17 11/16/17 11/16/17 11:55 12:00 12:10 Temperature Pulse Rate Respiratory Rate Blood Pressure 121/68 99/70 (mmHg) O2 Sat by Pulse 93 Oximetry 11/16/17 11/16/17 11/16/17 12:27 12:40 16:10 Temperature 98.5 F Pulse Rate 92 Respiratory 18 Rate Blood Pressure 130/84 130/70 126/76 (mmHg) O2 Sat by Pulse 91 Oximetry Oxygen Devices in Use Now: None Result Diagrams: 11/16/17 06:33 11/16/17 06:33 Additional Lab and Data: Lab Results 11/15/17 11/15/17 11/15/17 Range/Units 21:12 21:12 21:12 WBC 7.6 (3.5-10.8) 10^3/ul RBC 4.23 (4.00-5.40) 10^6/ul Hgb 12.9 (12.0-16.0) g/dl Hct 39 (35-47) % MCV 92 (80-97) fL MCH 31 (27-31) pg MCHC 33 (31-36) g/dl RDW 14 (10.5-15) % Plt Count 234 (150-450) 10^3/ul MPV 8.4 (7.4-10.4) um3 Neut % (Auto) 79.8 (38-83) % Lymph % (Auto) 13.7 L (25-47) % Clark % (Auto) 6.2 (0-7) % Eos % (Auto) 0.1 (0-6) % Baso % (Auto) 0.2 (0-2) % Absolute Neuts (auto) 6.0 (1.5-7.7) 10^3/ul Absolute Lymphs (auto) 1.0 (1.0-4.8) 10^3/ul Absolute Monos (auto) 0.5 (0-0.8) 10^3/ul Absolute Eos (auto) 0 (0-0.6) 10^3/ul Absolute Basos (auto) 0 (0-0.2) 10^3/ul Absolute Nucleated RBC 0 10^3/ul Nucleated RBC % 0 INR (Anticoag Therapy) 0.98 (0.77-1.02) APTT 28.9 (26.0-36.3) seconds Sodium 128 L (135-145) mmol/L Potassium 6.0 H (3.5-5.0) mmol/L Chloride 90 L (101-111) mmol/L Carbon Dioxide 30 (22-32) mmol/L Anion Gap 8 (2-11) mmol/L BUN 55 H (6-24) mg/dL Creatinine 1.73 H (0.51-0.95) mg/dL Est GFR ( Amer) 34.0 (>60) Est GFR (Non-Af Amer) 28.1 (>60) BUN/Creatinine Ratio 31.8 H (8-20) Glucose 97 (70-100) mg/dL Lactic Acid (0.5-2.0) mmol/L Calcium 9.7 (8.6-10.3) mg/dL Magnesium 2.0 (1.9-2.7) mg/dL Total Bilirubin 0.70 (0.2-1.0) mg/dL AST 48 H (13-39) U/L ALT 41 (7-52) U/L Alkaline Phosphatase 48 (34-104) U/L Troponin I 0.06 H* (<0.04) ng/mL C-Reactive Protein 3.91 (<8.01) mg/L B-Natriuretic Peptide ( - 100) pg/mL Total Protein 6.8 (6.4-8.9) g/dL Albumin 4.0 (3.2-5.2) g/dL Globulin 2.8 (2-4) g/dL Albumin/Globulin Ratio 1.4 (1-3) Prealbumin Pending TSH 3.06 (0.34-5.60) mcIU/mL Blood Type Antibody Screen 11/15/17 11/15/17 11/15/17 Range/Units 21:12 21:12 21:12 WBC (3.5-10.8) 10^3/ul RBC (4.00-5.40) 10^6/ul Hgb (12.0-16.0) g/dl Hct (35-47) % MCV (80-97) fL MCH (27-31) pg MCHC (31-36) g/dl RDW (10.5-15) % Plt Count (150-450) 10^3/ul MPV (7.4-10.4) um3 Neut % (Auto) (38-83) % Lymph % (Auto) (25-47) % Clark % (Auto) (0-7) % Eos % (Auto) (0-6) % Baso % (Auto) (0-2) % Absolute Neuts (auto) (1.5-7.7) 10^3/ul Absolute Lymphs (auto) (1.0-4.8) 10^3/ul Absolute Monos (auto) (0-0.8) 10^3/ul Absolute Eos (auto) (0-0.6) 10^3/ul Absolute Basos (auto) (0-0.2) 10^3/ul Absolute Nucleated RBC 10^3/ul Nucleated RBC % INR (Anticoag Therapy) (0.77-1.02) APTT (26.0-36.3) seconds Sodium (135-145) mmol/L Potassium (3.5-5.0) mmol/L Chloride (101-111) mmol/L Carbon Dioxide (22-32) mmol/L Anion Gap (2-11) mmol/L BUN (6-24) mg/dL Creatinine (0.51-0.95) mg/dL Est GFR ( Amer) (>60) Est GFR (Non-Af Amer) (>60) BUN/Creatinine Ratio (8-20) Glucose (70-100) mg/dL Lactic Acid 1.7 (0.5-2.0) mmol/L Calcium (8.6-10.3) mg/dL Magnesium (1.9-2.7) mg/dL Total Bilirubin (0.2-1.0) mg/dL AST (13-39) U/L ALT (7-52) U/L Alkaline Phosphatase (34-104) U/L Troponin I (<0.04) ng/mL C-Reactive Protein (<8.01) mg/L B-Natriuretic Peptide 1984 H ( - 100) pg/mL Total Protein (6.4-8.9) g/dL Albumin (3.2-5.2) g/dL Globulin (2-4) g/dL Albumin/Globulin Ratio (1-3) Prealbumin TSH (0.34-5.60) mcIU/mL Blood Type AB Positive Antibody Screen Negative Assess/Plan/Problems-Billing Assessment: This is an 81 year old frail female that presented to ED with weakness, hyponatremia, afib with RVR and weakness, currently in fluid overload. - Patient Problems (1) Atrial fibrillation with rapid ventricular response Code(s): I48.91 - UNSPECIFIED ATRIAL FIBRILLATION SNOMED Code(s): 987342903478043 Comment: - Cardizem drip DCd 2/2 hypotension which required additional fluids overnight - Remains in fib in high 90's to low 100's - Will trial short acting cardizem 30mg BID and monitor pressure and HR - Already on renally dosed eliquis (2) Acute on chronic congestive heart failure Code(s): I50.9 - HEART FAILURE, UNSPECIFIED SNOMED Code(s): 12767776 Comment: - Received fluid rescusitation in ED and fluids again overnight - Pleural effusions noted with mildly low O2 sats - BNP is in the 500-600 range at basline but is 1943 yesterday - Will give small dose lasix IV today and monitor for effect (3) Hyponatremia Code(s): E87.1 - HYPO-OSMOLALITY AND HYPONATREMIA SNOMED Code(s): 83533551 Comment: - Sodium improved today - Appears to be acute on chronic likely 2/2 hypervolemia - No neuro deficits noted (4) CKD (chronic kidney disease) Code(s): N18.9 - CHRONIC KIDNEY DISEASE, UNSPECIFIED SNOMED Code(s): 377260933 Comment: - Etiology may be outptatient diuretics, however she is now fluid overloaded - Will trial one dose IV lasix, adjust/add diuretics tomorrow as needed and for DC to home once euvolemic (5) Weakness Code(s): R53.1 - WEAKNESS SNOMED Code(s): 76287911 Comment: - Likely 2/2 to all the above - US abdomen not revealing of acute process, some ascites and pleural effusion that are likely r/t heart failure - PT evaluation tomorrow (6) DVT prophylaxis Code(s): LTV5193 - SNOMED Code(s): 837284336 Comment: - On renally dosed eliquis (7) DNR (do not resuscitate) Comment: - Confirmed with patient and daughter Status and Disposition: Remain inpatient pending PT recommendations
[2017-11-16] MEDS: Diltiazem TAB* 30 MG PO SCH (20:51)
[2017-11-17] MEDS: Aspirin 81 mg CHEW TAB* 81 MG TAB.CHEW PO SCH (08:14)
[2017-11-17] MEDS: Diltiazem TAB* 30 MG PO SCH ×2 (08:14→22:35)
[2017-11-17] MEDS: Apixaban* 2.5 MG TAB PO SCH ×2 (08:14→22:36)
--- NOTE | 2017-11-17 12:01 | PN ---
Subjective Date of Service: 11/17/17 Interval History: Ms. Newton reports feeling better than on arrival but continues to be dyspneic with exertion. She denies chest pain, nausea, or abdominal pain. Objective Active Medications: Acetaminophen (Tylenol Tab*) 650 mg PO Q4H PRN Al Hydrox/Mg Hydrox/Simethicone (Maalox Plus*) 30 ml PO Q6H PRN Apixaban (Eliquis) 2.5 mg PO BID [facility] Aspirin (Aspirin 81 Mg Chew Tab*) 81 mg PO DAILY [facility] Dextrose (D50w Syringe 50 Ml*) 12.5 gm IV PUSH .FOR FS < 60 - SS PRN Diltiazem HCl (Cardizem Tab*) 30 mg PO BID [facility] Docusate Sodium (Colace Cap*) 100 mg PO BID PRN Ondansetron HCl (Zofran Inj*) 4 mg IV Q4H PRN Senna (Senokot Tab*) 1 tab PO BID PRN Vital Signs: Temp Pulse Resp BP Pulse Ox 98.3 F 87 18 112/76 95 11/17/17 07:56 11/17/17 07:56 11/17/17 07:56 11/17/17 07:56 11/17/17 07:56 Oxygen Devices in Use Now: None Appearance: Female lying in bed in NAD Eyes: No Scleral Icterus Ears/Nose/Mouth/Throat: Mucous Membranes Moist Neck: Trachea Midline Respiratory: Symmetrical Chest Expansion and Respiratory Effort, Clear to Auscultation Cardiovascular: NL Sounds; No Murmurs; No JVD, No Edema Abdominal: NL Sounds; No Tenderness; No Distention Extremities: No Edema Skin: No Rash or Ulcers Neurological: Alert and Oriented x 3, NL Muscle Strength and Tone Nutrition: Taking PO's Result Diagrams: 11/16/17 06:33 11/16/17 06:33 Additional Lab and Data: Assess/Plan/Problems-Billing Assessment: Ms. Newton is an 81 year old frail female that presented to ED with weakness, hyponatremia, afib with RVR and weakness, currently in fluid overload. - Patient Problems (1) Atrial fibrillation with rapid ventricular response Comment: - Remains in fib in high 80-90s - Continue short acting cardizem 30mg, increase to TID as BP improved. - Continue eliquis (2) Acute on chronic congestive heart failure Comment: - On room air. - Likely secondary to fluid resuscitation since arrival. - Pleural effusions noted with mildly low O2 sats yesterday, SOB with activity today but not hypoxic. (3) CKD (chronic kidney disease) Comment: - Creatinine continues to improve, essentially at baseline (4) Hypertension Comment: - SBP improved today - Continue cardizem as per above for afib (5) Hyponatremia Comment: - Resolving - Appears to be acute on chronic likely 2/2 hypervolemia (6) Weakness Comment: - Likely 2/2 to all the above - PT evaluation pending, able to ambulate brief distances in the hallway (7) DVT prophylaxis Comment: - On renally dosed eliquis (8) DNR (do not resuscitate) Comment: - Confirmed with patient and daughter Status and Disposition: Remain inpatient pending PT recommendations
--- NOTE | 2017-11-18 07:40 | PN ---
Subjective Date of Service: 11/18/17 Interval History: Ms. Newton reports feeling better than on admission but feeling dyspneic with exertion. She denies chest pain. She denies nausea, vomiting or abdominal pain and is tolerating oral intake well. Nursing staff report that she ambulated almost the length of the long hallway and needed to rest once for SOB. However, on return to bed, patient noted to have crackles in the bases and an SpO2 of 87% on room air this afternoon. Objective Active Medications: Acetaminophen (Tylenol Tab*) 650 mg PO Q4H PRN Al Hydrox/Mg Hydrox/Simethicone (Maalox Plus*) 30 ml PO Q6H PRN Apixaban (Eliquis) 2.5 mg PO BID [facility] Aspirin (Aspirin 81 Mg Chew Tab*) 81 mg PO DAILY [facility] Dextrose (D50w Syringe 50 Ml*) 12.5 gm IV PUSH .FOR FS < 60 - SS PRN Diltiazem HCl (Cardizem Tab*) 30 mg PO TID [facility] Docusate Sodium (Colace Cap*) 100 mg PO BID PRN Ondansetron HCl (Zofran Inj*) 4 mg IV Q4H PRN Senna (Senokot Tab*) 1 tab PO BID PRN Vital Signs: Temp Pulse Resp BP Pulse Ox 98.4 F 109 18 139/71 91 11/18/17 03:27 11/18/17 03:27 11/18/17 03:27 11/18/17 03:27 11/18/17 03:27 Oxygen Devices in Use Now: None Appearance: Female lying in bed in NAD Eyes: No Scleral Icterus Ears/Nose/Mouth/Throat: NL Teeth, Lips, Gums, Mucous Membranes Moist Neck: Trachea Midline Respiratory: Symmetrical Chest Expansion and Respiratory Effort, Clear to Auscultation Cardiovascular: NL Sounds; No Murmurs; No JVD, No Edema Abdominal: NL Sounds; No Tenderness; No Distention Lymphatic: No Cervical Adenopathy Extremities: No Edema Skin: No Rash or Ulcers Neurological: Alert and Oriented x 3, NL Muscle Strength and Tone Nutrition: Taking PO's Result Diagrams: 11/16/17 06:33 11/16/17 06:33 Additional Lab and Data: . Microbiology and Other Data: . Assess/Plan/Problems-Billing Assessment: Ms. Newton is an 81 year female that presented to ED with weakness, hyponatremia, afib with RVR and weakness. - Patient Problems (1) Atrial fibrillation with rapid ventricular response Comment: - Remains in fib in high 80-90s - Increase cardizem to q6hrs. - Continue eliquis. (2) Acute on chronic congestive heart failure Comment: - Crackles in bases today with new O2 requirement, responded well to lasix - Likely secondary to fluid resuscitation since arrival. - Echo ordered for tomorrow. (3) CKD (chronic kidney disease) Comment: - Creatinine continues to improve, essentially at baseline (4) Hypertension Comment: - Continue cardizem as per above for afib (5) Hyponatremia Comment: - Resolving - Appears to be acute on chronic likely 2/2 hypervolemia (6) Weakness Comment: - Likely 2/2 to all the above - At baseline in terms of mobility, no acute PT needs. (7) DVT prophylaxis Comment: - On renally dosed eliquis (8) DNR (do not resuscitate) Comment: - Confirmed with patient and daughter Status and Disposition: Remain inpatient. Anticipate discharge to home when medically stable.
[2017-11-18] MEDS: Diltiazem TAB* 30 MG PO SCH ×3 (09:51→20:03)
[2017-11-18] MEDS: Apixaban* 2.5 MG TAB PO SCH ×2 (09:51→20:03)
[2017-11-18] MEDS: Aspirin 81 mg CHEW TAB* 81 MG TAB.CHEW PO SCH (09:51)
[2017-11-18] MEDS ORDERED: Furosemide IV* 10 MG/ML 2 ML VIAL (20 MG) IV ONE (15:06)
[2017-11-18] MEDS ORDERED: Diltiazem TAB* 30 MG PO SCH (18:00)
[2017-11-18 19:27] LABS: Urine Appearance Clear; Urine Blood Negative (Negative); Urine Color Yellow; Urine Ketones Negative (Negative); Urine Protein 1+(30 mg/dL) (Negative); Urine Red Blood Cell Trace(0-2/hpf) (Absent); Urine Specific Gravity 1.021 (1.010-1.030); Urine Urobilinogen Negative (Negative); Urine White Blood Cell 1+(6-10/hpf) (Absent)
[2017-11-19] MEDS: Diltiazem TAB* 30 MG PO SCH ×2 (01:43→07:55)
[2017-11-19 05:44] LABS: EGFR Non-African American 61.4 (>60)
[2017-11-19] MEDS: Apixaban* 2.5 MG TAB PO SCH ×2 (07:55→21:03)
[2017-11-19] MEDS: Aspirin 81 mg CHEW TAB* 81 MG TAB.CHEW PO SCH (07:56)
[2017-11-19] MEDS: Docusate CAP* 100 MG PO PRN (10:12)
[2017-11-19] MEDS: Senna TAB PO PRN (10:12)
[2017-11-19] MEDS: Diltiazem TAB* 60 MG PO SCH ×2 (13:41→21:03)
--- NOTE | 2017-11-19 14:35 | ECHO ---
Patient: LUCIE SCHMITT [facility] Rec#: [id number] : 1935 Date: 11/19/2017 Age: 81y Height: 150 cm / 59.1 in Weight: 60 kg / 132.2 lbs Sex: F BSA: 1.55 Room#: 434 Admit Date#: 11/16/2017 Type: Inpatient Referring: Monet Siddiqui NP Reading: Nitesh Ferro MD Human Resource Intern: Harriet Rodarte RDCS,RDMS CC: Marcelo Hay MD Transthoracic Echocardiogram Indication: CHF BP: 150/71 HR: 94 Rhythm: A-Fib Findings History: CHF, HTN, SONALI Technical Comments: The study quality is good. Left Ventricle: The left ventricular chamber size is decreased. Moderate concentric left ventricular hypertrophy is observed. There is increased basal septal hypertrophy noted without evidence of an increased gradient across the left ventricular outflow tract. The estimated ejection fraction is 60-65%. There is septal flattening of the interventricular septum consistent with right ventricular volume or pressure overload. The assessment of diastolic function is non-diagnostic. Left Atrium: The left atrium is severely dilated. Right Ventricle: The right ventricle is mildly dilated. The right ventricular global systolic function is normal. Right Atrium: The right atrial cavity size is severely dilated. There is an atrial septal defect visualized. There is a secundum atrial septal defect. There is predominant [id number] shunting across the interatrial septum. with several small defects. Atrial septal defect is demonstrated by color Doppler. Aortic Valve: The aortic valve is trileaflet. The aortic valve leaflets are moderately thickened. Systolic excursion of the aortic valve cusps is reduced. There is a trace of aortic regurgitation. There is mild to moderate aortic stenosis. Mitral Valve: There is mitral annular calcification.with mild restriction of the leaflets. The mitral valve leaflets are mildly thickened. Mitral valve leaflet mobility is mildly restricted. Posterior leaflet There is mild to moderate mitral regurgitation. The mitral regurgitant jet is posteriorly directed. The mitral regurgitant jet is laterally directed. There is borderline mitral stenosis. Tricuspid Valve: The tricuspid valve leaflets are normal. There is severe tricuspid regurgitation. The right ventricular systolic pressure is estimated at 56 mmHg. There is evidence of moderate pulmonary hypertension. Pulmonic Valve: There is a trace pulmonic regurgitation. Pericardium: There is no significant pericardial effusion. A left pleural effusion is present. Aorta: The aortic root appears normal. The aortic arch is not well visualized. Pulmonary Artery: The main pulmonary artery is mildly dilated. Venous: The inferior vena cava is dilated. There is less than 50% respiratory change in the inferior vena cava dimension. Summary: There was not any prior study for comparison. Conclusions The left ventricular chamber size is decreased. Moderate concentric left ventricular hypertrophy is observed. There is increased basal septal hypertrophy noted without evidence of an increased gradient across the left ventricular outflow tract. The estimated ejection fraction is 60-65%. There is septal flattening of the interventricular septum consistent with right ventricular volume or pressure overload. The left atrium is severely dilated. The right ventricle is mildly dilated. The right ventricular global systolic function is normal. The right atrial cavity size is severely dilated. Atrial septal defect is demonstrated by color Doppler. There is predominant [id number] shunting across the interatrial septum with several small defects. There is mild to moderate aortic stenosis. The aortic valve leaflets are moderately thickened. There is mild to moderate mitral regurgitation. There is mitral annular calcification. There is mitral annular calcification.with mild restriction of the leaflets. Mitral valve leaflet mobility is mildly restricted. Posterior leaflet There is mild to moderate mitral regurgitation. There is severe tricuspid regurgitation. The right ventricular systolic pressure is estimated at 56 mmHg. A left pleural effusion is present. Measurements Name Value Normal Range RVIDd (AP) 2D 3.6 cm (0.9 - 2.6) RVDdMajor (2D) 3.4 cm (2.2 - 4.4) RAd ISD 4CH 7.6 cm (3.4 - 4.9) RA (A4C)W 4.6 cm (2.9 - 4.6) IVSd (2D) 1.1 cm (0.6 - 1) LVPWd (2D) 1.4 cm (0.6 - 1) LVIDd (2D) 3.3 cm (3.6 - 5.4) LVIDs (2D) 2.1 cm - LV FS (2D) 36 % (25 - 45) Aortic Annulus 2.1 cm (1.4 - 2.6) Ao root diameter (2D) 2.7 cm (2.1 - 3.5) Ascending Ao 2.3 cm (2.1 - 3.4) LA dimension (AP) 2D 4.7 cm (2.3 - 3.8) LAd ISD 4CH 7.8 cm (2.9 - 5.3) LA ISD 4CH W 5.6 cm (2.5 - 4.5) Name Value Normal Range LA ESV BP (A/L) index 66 ml/m2 - Name Value Normal Range MV E-wave Vmax 1.4 m/sec - MV deceleration time 173 msec - LV lateral e' Vmax 0.09 m/sec - LV E:e' lateral ratio 16 ratio - Name Value Normal Range AV Vmax 2.1 m/sec - AV VTI 35 cm - AV peak gradient 18 mmHg - AV mean gradient 10 mmHg - LVOT diameter 2 cm - LVOT Vmax 1.1 m/sec - LVOT VTI 19 cm - LVOT peak gradient 5 mmHg - LVOT mean gradient 3 mmHg - DOI (VTI) 0.5 ratio - PAT (continuity Vmax) 1.6 cm2 - PAT (continuity VTI) 1.7 cm2 - Name Value Normal Range MV Vmax 1.5 m/sec - MV VTI 23 cm - MV peak gradient 9 mmHg - MV mean gradient 4 mmHg - MV PHT 61 msec - MVA (PHT) 3.6 cm2 - MVA (continuity VTI) 2.5 cm2 - Name Value Normal Range TR Vmax 3.2 m/sec - TR peak gradient 41 mmHg - RAP 15 mmHg - RVSP 56 mmHg - IVC diameter 2.4 cm - Name Value Normal Range PV Vmax 1.4 m/sec - PV peak gradient 8 mmHg -
[2017-11-20] MEDS: Diltiazem TAB* 60 MG PO SCH ×4 (02:05→20:26)
[2017-11-20 06:21] LABS: EGFR Non-African American 66.6 (>60)
[2017-11-20] MEDS: Apixaban* 2.5 MG TAB PO SCH ×2 (08:17→20:26)
[2017-11-20] MEDS: Aspirin 81 mg CHEW TAB* 81 MG TAB.CHEW PO SCH (08:18)
--- NOTE | 2017-11-20 08:23 | PN ---
Subjective Date of Service: 11/19/17 Interval History: Ms. Newton continues to feel short of breath with ambulation and is weak. She denies chest pain. She denies nausea or abdominal pain and is tolerating oral intake well. Objective Active Medications: Acetaminophen (Tylenol Tab*) 650 mg PO Q4H PRN Al Hydrox/Mg Hydrox/Simethicone (Maalox Plus*) 30 ml PO Q6H PRN Apixaban (Eliquis) 2.5 mg PO BID TRESA Aspirin (Aspirin 81 Mg Chew Tab*) 81 mg PO DAILY TRESA Dextrose (D50w Syringe 50 Ml*) 12.5 gm IV PUSH .FOR FS < 60 - SS PRN Diltiazem HCl (Cardizem Tab*) 60 mg PO 0200,0800,1400,2000 TRESA Docusate Sodium (Colace Cap*) 100 mg PO BID PRN Ondansetron HCl (Zofran Inj*) 4 mg IV Q4H PRN Senna (Senokot Tab*) 1 tab PO BID PRN Vital Signs: Temp Pulse Resp BP Pulse Ox 98.2 F 100 18 146/70 93 11/20/17 08:00 11/20/17 08:00 11/20/17 08:00 11/20/17 08:00 11/20/17 08:00 Oxygen Devices in Use Now: Nasal Cannula Appearance: Female lying in bed in NAD Eyes: No Scleral Icterus Ears/Nose/Mouth/Throat: Mucous Membranes Moist Neck: Trachea Midline Respiratory: Symmetrical Chest Expansion and Respiratory Effort, Clear to Auscultation Cardiovascular: NL Sounds; No Murmurs; No JVD, No Edema Abdominal: NL Sounds; No Tenderness; No Distention Lymphatic: No Cervical Adenopathy Extremities: No Edema Skin: No Rash or Ulcers Neurological: Alert and Oriented x 3, NL Muscle Strength and Tone Nutrition: Taking PO's Result Diagrams: 11/16/17 06:33 11/20/17 05:41 Additional Lab and Data: . Microbiology and Other Data: . Assess/Plan/Problems-Billing Assessment: Ms. Newton is an 81 year female that presented to ED with weakness, hyponatremia, afib with RVR and weakness. - Patient Problems (1) Atrial fibrillation with rapid ventricular response Comment: - Remains in fib in high 80-110s - Increase cardizem to 60mg q6hrs, if no improvement will switch to metoprolol. - Continue eliquis. (2) Acute on chronic congestive heart failure Comment: - Resolved - Likely secondary to fluid resuscitation since arrival. - Echo ordered for tomorrow. (3) CKD (chronic kidney disease) Comment: - Creatinine continues to improve, essentially at baseline (4) Hypertension Comment: - Continue cardizem as per above for afib (5) Hyponatremia Comment: - Resolving - Appears to be acute on chronic likely 2/2 hypervolemia (6) Weakness Comment: - Likely 2/2 to all the above - At baseline in terms of mobility, no acute PT needs. (7) DVT prophylaxis Comment: - On renally dosed eliquis (8) DNR (do not resuscitate) Comment: - Confirmed with patient and daughter Status and Disposition: Remain inpatient. Anticipate discharge to home when medically stable, may need rehab.
--- NOTE | 2017-11-20 08:24 | PN ---
Subjective Date of Service: 11/20/17 Interval History: Ms. Newton reports feeling weak and unsafe for discharge. She denies any other complaints including chest pain, SOB, nausea, or abdominal pain. She would be willing to go to rehab if she qualified. Objective Active Medications: Acetaminophen (Tylenol Tab*) 650 mg PO Q4H PRN Al Hydrox/Mg Hydrox/Simethicone (Maalox Plus*) 30 ml PO Q6H PRN Apixaban (Eliquis) 2.5 mg PO BID TRSEA Aspirin (Aspirin 81 Mg Chew Tab*) 81 mg PO DAILY [facility]A Dextrose (D50w Syringe 50 Ml*) 12.5 gm IV PUSH .FOR FS < 60 - SS PRN Diltiazem HCl (Cardizem Tab*) 60 mg PO 0200,0800,1400,2000 TRESA Docusate Sodium (Colace Cap*) 100 mg PO BID PRN Ondansetron HCl (Zofran Inj*) 4 mg IV Q4H PRN Senna (Senokot Tab*) 1 tab PO BID PRN Vital Signs: Temp Pulse Resp BP Pulse Ox 98.6 F 95 18 144/69 98 11/20/17 15:28 11/20/17 15:28 11/20/17 15:28 11/20/17 15:28 11/20/17 15:28 Oxygen Devices in Use Now: Nasal Cannula Appearance: Female lying in bed in NAD, daughter at bedside Eyes: No Scleral Icterus Ears/Nose/Mouth/Throat: Mucous Membranes Moist Neck: Trachea Midline Respiratory: Symmetrical Chest Expansion and Respiratory Effort, Clear to Auscultation Cardiovascular: NL Sounds; No Murmurs; No JVD, No Edema Abdominal: NL Sounds; No Tenderness; No Distention Lymphatic: No Cervical Adenopathy Extremities: No Edema Skin: No Rash or Ulcers Neurological: Alert and Oriented x 3, NL Muscle Strength and Tone Nutrition: Taking PO's Result Diagrams: 11/16/17 06:33 11/20/17 05:41 Additional Lab and Data: . Microbiology and Other Data: . Assess/Plan/Problems-Billing Assessment: Ms. Newton is an 81 year female that presented to ED with weakness, hyponatremia, afib with RVR and weakness. - Patient Problems (1) Atrial fibrillation with rapid ventricular response Comment: - HR much improved overnight. - Increase cardizem to 360 CD in AM. - Continue eliquis. (2) Acute on chronic congestive heart failure Comment: - Resolved - Likely secondary to fluid resuscitation since arrival. - Echo shows an intact EF but she has severe left atrial dilitation, severe tricuspid regurgitation, and pulmonary hypertension. 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 (3) CKD (chronic kidney disease) Comment: - Creatinine continues to improve, essentially at baseline (4) Hypertension Comment: - Continue cardizem as per above for afib (5) Hyponatremia Comment: - Resolving - Appears to be acute on chronic likely 2/2 hypervolemia (6) Weakness Comment: - Likely 2/2 to all the above - At baseline in terms of mobility, no acute PT needs as of 11/17/17, awaiting re -eval. (7) DVT prophylaxis Comment: - On renally dosed eliquis (8) DNR (do not resuscitate) Comment: - Confirmed with patient and daughter Status and Disposition: Remain inpatient. PT/OT eval, anticipate rehab need.
[2017-11-20 18:28] LABS: EGFR Non-African American 67.5 (>60)
[2017-11-21] MEDS: Apixaban* 2.5 MG TAB PO SCH ×2 (07:38→20:19)
[2017-11-21] MEDS: Aspirin 81 mg CHEW TAB* 81 MG TAB.CHEW PO SCH (07:38)
[2017-11-21] MEDS: Diltiazem CD CAP* 180 MG PO SCH (07:38)
[2017-11-21] MEDS ORDERED: Furosemide TAB* 40 MG PO ONE (14:21)
[2017-11-21 18:01] LABS: EGFR Non-African American 61.4 (>60)
--- NOTE | 2017-11-21 21:21 | PN ---
Subjective Date of Service: 11/21/17 Interval History: Staff reports tachycardia this AM with exertion. Patient asymptomatic. No complaints, sitting in the chair. Denies chest pain or shortness of breath, denies abd pain n/v/d. Denies palpitations. Family History: Unchanged from Admission Social History: Unchanged from Admission Past Medical History: Unchanged from Admission Objective Active Medications: Acetaminophen (Tylenol Tab*) 650 mg PO Q4H PRN PRN Reason: FEVER/PAIN Al Hydrox/Mg Hydrox/Simethicone (Maalox Plus*) 30 ml PO Q6H PRN PRN Reason: INDIGESTION Apixaban (Eliquis) 2.5 mg PO BID [facility] Last Admin: 11/21/17 20:19 Dose: 2.5 mg Aspirin (Aspirin 81 Mg Chew Tab*) 81 mg PO DAILY [facility] Last Admin: 11/21/17 07:38 Dose: 81 mg Dextrose (D50w Syringe 50 Ml*) 12.5 gm IV PUSH .FOR FS < 60 - SS PRN PRN Reason: FS < 60 Last Admin: 11/15/17 23:09 Dose: 25 gm Diltiazem HCl (Cardizem Cd Cap*) 360 mg PO DAILY [facility] Last Admin: 11/21/17 07:38 Dose: 360 mg Docusate Sodium (Colace Cap*) 100 mg PO BID PRN PRN Reason: CONSTIPATION Last Admin: 11/19/17 10:12 Dose: 100 mg Ondansetron HCl (Zofran Inj*) 4 mg IV Q4H PRN PRN Reason: NAUSEA/VOMITING Senna (Senokot Tab*) 1 tab PO BID PRN PRN Reason: CONSTIPATION Last Admin: 11/19/17 10:12 Dose: 1 tab Vital Signs - 8 hr 11/21/17 15:43 Temperature 98.2 F Pulse Rate 84 Respiratory 16 Rate Blood Pressure 142/57 (mmHg) O2 Sat by Pulse 90 Oximetry Oxygen Devices in Use Now: Nasal Cannula Appearance: appears comfortable sitting in the chair , no acute distress Eyes: No Scleral Icterus Ears/Nose/Mouth/Throat: Clear Oropharnyx, Mucous Membranes Moist Neck: NL Appearance and Movements; NL JVP, Trachea Midline Respiratory: Symmetrical Chest Expansion and Respiratory Effort, Clear to Auscultation Cardiovascular: - - + 1 pitting , S1s2 irregular, murmur Abdominal: NL Sounds; No Tenderness; No Distention Extremities: - - +1 pitting edema Skin: No Rash or Ulcers Neurological: Alert and Oriented x 3 Nutrition: Taking PO's Result Diagrams: 11/22/17 05:27 11/22/17 17:22 Additional Lab and Data: . Microbiology and Other Data: . Assess/Plan/Problems-Billing Assessment: Ms. Newton is an 81 year female that presented to ED with weakness, hyponatremia, afib with RVR and weakness. - Patient Problems (1) Atrial fibrillation with rapid ventricular response Current Visit: Yes Status: Acute Code(s): I48.91 - UNSPECIFIED ATRIAL FIBRILLATION SNOMED Code(s): 877618399379394 Comment: - HR tachy this AM -improved throughtout the day will continue to monitor and adjust medications as needed. - Increase cardizem to 360 CD in AM. - Continue eliquis. (2) Acute on chronic congestive heart failure Current Visit: Yes Status: Acute Code(s): I50.9 - HEART FAILURE, UNSPECIFIED SNOMED Code(s): 86286435 Comment: _ acute on Chronic diastolic congestive heart failure - resolved - Likely secondary to fluid resuscitation since arrival. - Echo shows an intact EF but she has severe left atrial dilitation, severe tricuspid regurgitation, and pulmonary hypertension. 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 (3) Hyponatremia Current Visit: Yes Status: Acute Code(s): E87.1 - HYPO-OSMOLALITY AND HYPONATREMIA SNOMED Code(s): 46748495 Comment: - Sodium 122 - Appears to be acute on chronic likely 2/2 hypervolemia - will give a dose lasix as patient has +1-2 pitting edema to bilat lower ext. 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 (4) CKD (chronic kidney disease) Current Visit: Yes Status: Acute Code(s): N18.9 - CHRONIC KIDNEY DISEASE, UNSPECIFIED SNOMED Code(s): 973723412 Comment: - Creatinine continues to improve, essentially at baseline - CKD-Stage 3 (5) Hypertension Current Visit: No Status: Acute Code(s): I10 - ESSENTIAL (PRIMARY) HYPERTENSION SNOMED Code(s): 84813914 Comment: - stable - Continue cardizem as per above for afib (6) DVT prophylaxis Current Visit: Yes Status: Acute Code(s): XLE8892 - SNOMED Code(s): 609426256 Comment: - On renally dosed eliquis (7) DNR (do not resuscitate) Current Visit: Yes Status: Acute Comment: - Confirmed with patient and daughter (8) Hyperkalemia Current Visit: Yes Status: Acute Code(s): E87.5 - HYPERKALEMIA SNOMED Code (s): 54532833 Comment: Potassium 5.4 -Will repeat today - will continue to monitor and treat as needed Status and Disposition: Remain inpatient. PT/OT eval, anticipate rehab need.
[2017-11-22 06:15] LABS: ABS Basophils 0 10^3/ul (0-0.2); ABS Eosinophils 0 10^3/ul (0-0.6); ABS Lymphocytes 0.6 10^3/ul (1.0-4.8); ABS Monocytes 0.6 10^3/ul (0-0.8); ABS Neutrophils 6.3 10^3/ul (1.5-7.7); ABS Nucleated RBC 0 10^3/ul; Eosinophil % 0.1 % (0-6); Hematocrit 31 % (35-47); Hemoglobin 10.4 g/dl (12.0-16.0); Lymphocyte % 8.1 % (25-47); Mean Corpuscular HGB Conc 34 g/dl (31-36); Mean Corpuscular Hemoglobin 31 pg (27-31); Mean Corpuscular Volume 92 fL (80-97); Mean Platelet Volume 7.9 um3 (7.4-10.4); Nucleated Red Blood Cells % 0.1; Platelet Count 214 10^3/ul (150-450); Red Blood Count 3.33 10^6/ul (4.00-5.40); Red Cell Distribution Width 14 % (10.5-15); White Blood Count 7.5 10^3/ul (3.5-10.8)
[2017-11-22 06:33] LABS: EGFR Non-African American 67.5 (>60)
[2017-11-22] MEDS: Apixaban* 2.5 MG TAB PO SCH ×2 (07:53→19:29)
[2017-11-22] MEDS: Aspirin 81 mg CHEW TAB* 81 MG TAB.CHEW PO SCH (07:53)
[2017-11-22] MEDS: Diltiazem CD CAP* 180 MG PO SCH (07:53)
[2017-11-22] MEDS ORDERED: Furosemide IV* 10 MG/ML 2 ML VIAL (20 MG) IV ONE (12:51)
--- NOTE | 2017-11-22 19:17 | PN ---
Subjective Date of Service: 11/22/17 Interval History: c/o mild shortness of breath. Denies chest pain. Denies abd pain n/v/d. Family History: Unchanged from Admission Social History: Unchanged from Admission Past Medical History: Unchanged from Admission Objective Active Medications: Acetaminophen (Tylenol Tab*) 650 mg PO Q4H PRN PRN Reason: FEVER/PAIN Al Hydrox/Mg Hydrox/Simethicone (Maalox Plus*) 30 ml PO Q6H PRN PRN Reason: INDIGESTION Apixaban (Eliquis) 2.5 mg PO BID [facility] Last Admin: 11/22/17 07:53 Dose: 2.5 mg Aspirin (Aspirin 81 Mg Chew Tab*) 81 mg PO DAILY [facility] Last Admin: 11/22/17 07:53 Dose: 81 mg Dextrose (D50w Syringe 50 Ml*) 12.5 gm IV PUSH .FOR FS < 60 - SS PRN PRN Reason: FS < 60 Last Admin: 11/15/17 23:09 Dose: 25 gm Diltiazem HCl (Cardizem Cd Cap*) 360 mg PO DAILY [facility] Last Admin: 11/22/17 07:53 Dose: 360 mg Docusate Sodium (Colace Cap*) 100 mg PO BID PRN PRN Reason: CONSTIPATION Last Admin: 11/19/17 10:12 Dose: 100 mg Ondansetron HCl (Zofran Inj*) 4 mg IV Q4H PRN PRN Reason: NAUSEA/VOMITING Senna (Senokot Tab*) 1 tab PO BID PRN PRN Reason: CONSTIPATION Last Admin: 11/19/17 10:12 Dose: 1 tab Vital Signs - 8 hr 11/22/17 11/22/17 11/22/17 11:13 13:04 15:27 Temperature 98.4 F 98.2 F 98.5 F Pulse Rate 71 89 89 Respiratory 22 16 16 Rate Blood Pressure 128/61 148/68 138/58 (mmHg) O2 Sat by Pulse 91 92 96 Oximetry Oxygen Devices in Use Now: Nasal Cannula Appearance: appears comfortable resting in bed. no acute distress Eyes: No Scleral Icterus Ears/Nose/Mouth/Throat: Clear Oropharnyx, Mucous Membranes Moist Neck: NL Appearance and Movements; NL JVP, Trachea Midline Respiratory: Symmetrical Chest Expansion and Respiratory Effort, - - diminshed bilat bases Cardiovascular: - - s1s2 irregular, murmur Abdominal: NL Sounds; No Tenderness; No Distention Extremities: No Clubbing, Cyanosis, - - +1-2 pitting edema to bilat lower ext Skin: No Rash or Ulcers Neurological: Alert and Oriented x 3 Nutrition: Taking PO's Result Diagrams: 11/22/17 05:27 11/22/17 17:22 Additional Lab and Data: . Microbiology and Other Data: . Assess/Plan/Problems-Billing Assessment: Ms. Newton is an 81 year female that presented to ED with weakness, hyponatremia, afib with RVR and weakness. - Patient Problems (1) Atrial fibrillation with rapid ventricular response Current Visit: Yes Status: Acute Code(s): I48.91 - UNSPECIFIED ATRIAL FIBRILLATION SNOMED Code(s): 312838030878711 Comment: - HR improved this AM 80's-90's today - continue cardizem 360 CD - Continue eliquis. (2) Acute on chronic congestive heart failure Current Visit: Yes Status: Acute Code(s): I50.9 - HEART FAILURE, UNSPECIFIED SNOMED Code(s): 76910765 Comment: _ acute on Chronic diastolic congestive heart failure - resolving- will give dose of lasix 20 mg IV as patient is mildly short of breath and continued tohave bilat lower ext pitting edema +1-2. - Likely secondary to fluid resuscitation since arrival. - Echo shows an intact EF but she has severe left atrial dilitation, severe tricuspid regurgitation, and pulmonary hypertension. 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 (3) Hyponatremia Current Visit: Yes Status: Acute Code(s): E87.1 - HYPO-OSMOLALITY AND HYPONATREMIA SNOMED Code(s): 88634750 Comment: - Sodium 123 this afternoon slowly improving after lasix and fluid restriction. - Appears to be acute on chronic likely 2/2 hypervolemia - will give a dose lasix again today as patient has +1-2 pitting edema to bilat lower ext. 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 (4) CKD (chronic kidney disease) Current Visit: Yes Status: Acute Code(s): N18.9 - CHRONIC KIDNEY DISEASE, UNSPECIFIED SNOMED Code(s): 457926508 Comment: - Creatinine continues to improve, essentially at baseline - CKD-Stage 3 (5) Hypertension Current Visit: No Status: Acute Code(s): I10 - ESSENTIAL (PRIMARY) HYPERTENSION SNOMED Code(s): 15960718 Comment: - stable - Continue cardizem as per above for afib (6) DVT prophylaxis Current Visit: Yes Status: Acute Code(s): KZE3712 - SNOMED Code(s): 280439577 Comment: - On renally dosed eliquis (7) DNR (do not resuscitate) Current Visit: Yes Status: Acute Comment: - Confirmed with patient and daughter (8) Hyperkalemia Current Visit: Yes Status: Acute Code(s): E87.5 - HYPERKALEMIA SNOMED Code (s): 68625244 Comment: Potassium 4.8 - will continue to monitor and treat as needed Status and Disposition: Remain inpatient. PT/OT eval, anticipate rehab need.
[2017-11-23 06:38] LABS: EGFR Non-African American 64.8 (>60)
[2017-11-23] MEDS: Diltiazem CD CAP* 180 MG PO SCH (07:42)
[2017-11-23] MEDS: Aspirin 81 mg CHEW TAB* 81 MG TAB.CHEW PO SCH (07:42)
[2017-11-23] MEDS: Apixaban* 2.5 MG TAB PO SCH ×2 (07:42→20:33)
[2017-11-23] MEDS ORDERED: Furosemide IV* 10 MG/ML VIAL (40 MG) IV ONE (11:00)
[2017-11-23] MEDS ORDERED: Sodium Chloride TAB* 1 GM PO SCH (12:00)
[2017-11-23] MEDS: Sodium Chloride TAB* 1 GM PO SCH ×2 (16:45→20:34)
[2017-11-23] MEDS: Demeclocycline TAB* 150 MG PO SCH ×2 (16:46→20:34)
--- NOTE | 2017-11-23 17:39 | RAD ---
INDICATION: Shortness of breath. COMPARISON: November 15, 2017 chest radiograph. TECHNIQUE: Multidetector CT images were obtained from the lung apices to the upper abdomen. Evaluation of the viscera is limited without IV contrast. REPORT: Motion artifact degrades image quality. Moderate dependent RIGHT and small LEFT pleural effusions with proportional atelectasis including complete atelectasis of the RIGHT lower lobe. Negative for pneumothorax. Cardiomegaly. Atherosclerotic plaque of normal diameter abdominal aorta. Prominent central pulmonary arteries. Coronary artery calcifications. Diffuse decreased bone density and multilevel ankylosis of the thoracic spine. Increased thoracic kyphosis. No fractures or suspicious osseous lesions evident. IMPRESSION: #. The constellation of findings is most consistent with interstitial pulmonary edema with associated moderate RIGHT and small LEFT pleural effusions with compressive atelectasis.
--- NOTE | 2017-11-23 17:54 | PN ---
Subjective Date of Service: 11/23/17 Interval History: C/o mild shortness of breath. Denies chest pain. Denies abd pain n/v/d. states slept well overnight Family History: Unchanged from Admission Social History: Unchanged from Admission Past Medical History: Unchanged from Admission Objective Active Medications: Acetaminophen (Tylenol Tab*) 650 mg PO Q4H PRN PRN Reason: FEVER/PAIN Al Hydrox/Mg Hydrox/Simethicone (Maalox Plus*) 30 ml PO Q6H PRN PRN Reason: INDIGESTION Apixaban (Eliquis) 2.5 mg PO BID [facility] Last Admin: 11/23/17 07:42 Dose: 2.5 mg Aspirin (Aspirin 81 Mg Chew Tab*) 81 mg PO DAILY [facility] Last Admin: 11/23/17 07:42 Dose: 81 mg Demeclocycline HCl (Declomycin Tab*) 150 mg PO TID [facility] Last Admin: 11/23/17 16:46 Dose: 150 mg Dextrose (D50w Syringe 50 Ml*) 12.5 gm IV PUSH .FOR FS < 60 - SS PRN PRN Reason: FS < 60 Last Admin: 11/15/17 23:09 Dose: 25 gm Diltiazem HCl (Cardizem Cd Cap*) 360 mg PO DAILY [facility] Last Admin: 11/23/17 07:42 Dose: 360 mg Docusate Sodium (Colace Cap*) 100 mg PO BID PRN PRN Reason: CONSTIPATION Last Admin: 11/19/17 10:12 Dose: 100 mg Ondansetron HCl (Zofran Inj*) 4 mg IV Q4H PRN PRN Reason: NAUSEA/VOMITING Senna (Senokot Tab*) 1 tab PO BID PRN PRN Reason: CONSTIPATION Last Admin: 11/19/17 10:12 Dose: 1 tab Sodium Chloride (Sodium Chloride Tab*) 1 gm PO BID [facility] Last Admin: 11/23/17 16:45 Dose: 1 gm Vital Signs - 8 hr 11/23/17 11/23/17 11/23/17 11:14 11:26 15:33 Temperature 98.2 F 98.5 F 98.5 F Pulse Rate 98 71 Respiratory 16 16 Rate Blood Pressure 147/68 143/66 (mmHg) O2 Sat by Pulse 95 94 Oximetry Oxygen Devices in Use Now: Nasal Cannula Appearance: appears mildy tachypneic sitting in the chair. color pink Eyes: No Scleral Icterus Ears/Nose/Mouth/Throat: Clear Oropharnyx, Mucous Membranes Moist Neck: NL Appearance and Movements; NL JVP, Trachea Midline Respiratory: Symmetrical Chest Expansion and Respiratory Effort - diminished bilat with crackles in the left base Cardiovascular: - - s1s2 murmur , irregular Abdominal: NL Sounds; No Tenderness; No Distention Extremities: No Clubbing, Cyanosis, - - +3 pitting edema to bilat lower extremities Skin: No Rash or Ulcers Neurological: Alert and Oriented x 3 Result Diagrams: 11/22/17 05:27 11/23/17 05:29 Additional Lab and Data: . Microbiology and Other Data: . Assess/Plan/Problems-Billing Assessment: Ms. Newton is an 81 year female that presented to ED with weakness, hyponatremia, afib with RVR and weakness. - Patient Problems (1) Atrial fibrillation with rapid ventricular response Current Visit: Yes Status: Acute Code(s): I48.91 - UNSPECIFIED ATRIAL FIBRILLATION SNOMED Code(s): 910848386240213 Comment: - HR improved this AM 80's-90's today - continue cardizem 360 CD - Continue eliquis. (2) Acute on chronic congestive heart failure Current Visit: Yes Status: Acute Code(s): I50.9 - HEART FAILURE, UNSPECIFIED SNOMED Code(s): 18681625 Comment: _ acute on Chronic diastolic congestive heart failure - resolving- will give dose of lasix 40mg IV as patient is mildly short of breath and continues to have bilat lower ext pitting edema +2-3 -CT of Chest - shows pleural effusion bilat and pulmonary edema - Likely secondary to fluid resuscitation since arrival. - Echo shows an intact EF but she has severe left atrial dilitation, severe tricuspid regurgitation, and pulmonary hypertension. 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 (3) Hyponatremia Current Visit: Yes Status: Acute Code(s): E87.1 - HYPO-OSMOLALITY AND HYPONATREMIA SNOMED Code(s): 36676151 Comment: - Sodium 122 this AM - will continue fluid restriction, - Appears to be acute on chronic likely 2/2 hypervolemia - Will add sodium tablet and diclomycin - will give a dose lasix 40 mg today as patient has +2-3 pitting edema to bilat lower ext. 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 (4) CKD (chronic kidney disease) Current Visit: Yes Status: Acute Code(s): N18.9 - CHRONIC KIDNEY DISEASE, UNSPECIFIED SNOMED Code(s): 142052561 Comment: - essentially at baseline - CKD-Stage 3 (5) Hypertension Current Visit: No Status: Acute Code(s): I10 - ESSENTIAL (PRIMARY) HYPERTENSION SNOMED Code(s): 00626082 Comment: - stable - Continue cardizem as per above for afib (6) DVT prophylaxis Current Visit: Yes Status: Acute Code(s): XDR5838 - SNOMED Code(s): 626017692 Comment: - On renally dosed eliquis (7) DNR (do not resuscitate) Current Visit: Yes Status: Acute Comment: - Confirmed with patient and daughter (8) Hyperkalemia Current Visit: Yes Status: Acute Code(s): E87.5 - HYPERKALEMIA SNOMED Code (s): 81084199 Comment: resolved Potassium 4.6 - will continue to monitor and treat as needed Status and Disposition: Remain inpatient. PT/OT eval, anticipate rehab need.
[2017-11-23] MEDS: Senna TAB PO PRN (20:52)
[2017-11-23] MEDS: Docusate CAP* 100 MG PO PRN (20:52)
[2017-11-24 06:12] LABS: EGFR Non-African American 64.8 (>60)
[2017-11-24] MEDS: Demeclocycline TAB* 150 MG PO SCH ×3 (08:43→22:21)
[2017-11-24] MEDS: Sodium Chloride TAB* 1 GM PO SCH ×2 (08:43→22:12)
[2017-11-24] MEDS: Diltiazem CD CAP* 180 MG PO SCH (08:43)
[2017-11-24] MEDS: Aspirin 81 mg CHEW TAB* 81 MG TAB.CHEW PO SCH (08:43)
[2017-11-24] MEDS: Apixaban* 2.5 MG TAB PO SCH ×2 (08:43→22:12)
[2017-11-24] MEDS ORDERED: Furosemide IV* 10 MG/ML VIAL (40 MG) IV ONE (13:52)
[2017-11-24] MEDS ORDERED: Magnesium Sulfate 2 GM IV* 2 GM/50 ML BAG IVPB ONE (13:53)
[2017-11-24] MEDS ORDERED: Iodixanol* (CONTRAST) 320 MG/ML 100 ML SDV IV ONE (16:26)
[2017-11-24] MEDS ORDERED: Iodixanol* (CONTRAST) 320 MG/ML 100 ML SDV IV SCH (17:00)
--- NOTE | 2017-11-24 17:34 | RAD ---
INDICATION: Shortness of breath. Assess for PE. COMPARISON: Noncontrast CT chest of one day prior. TECHNIQUE: Multidetector CT images were obtained from the lung apices to the upper abdomen with 65 mL Visipaque 320 IV contrast. Pulmonary angiogram protocol. Multiplanar reformation including with maximum intensity projection. REPORT: Unchanged finding of large RIGHT and small LEFT dependent pleural effusions. Complete RIGHT lower lobe and significant partial LEFT lower lobe atelectasis without significant change. Negative for pneumothorax. No thoracic lymphadenopathy evident. Cardiomegaly. Ectatic thoracic aorta without aneurysm or dissection. Prominent main pulmonary arteries with peripheral attenuation consistent with pulmonary arterial hypertension. Corresponding RIGHT side heart chamber enlargement. Technically adequate CT pulmonary angiogram without evidence for filling defects from the main to the segmental and subsegmental pulmonary arteries to indicate pulmonary embolism. Thoracic kyphosis with multilevel bridging osteophytes at the anterior margin of the vertebral bodies. No fractures evident. IMPRESSION: #. The constellation of findings is most consistent with pulmonary arterial hypertension and cor pulmonale. #. Unchanged finding of large RIGHT and small LEFT dependent pleural effusions. Complete RIGHT lower lobe and significant partial LEFT lower lobe atelectasis without significant change. #. No evidence for pulmonary embolism.
[2017-11-24] MEDS: Docusate CAP* 100 MG PO PRN (17:37)
[2017-11-24] MEDS: Senna TAB PO PRN (17:37)
--- NOTE | 2017-11-24 18:41 | PN ---
Subjective Date of Service: 11/24/17 Interval History: states she slept well last night, up sitting in the chair. continue to c/o shortness of breath , worse with exertion . denies fever or chills, denies chest pain or abd pain. denies n/v/d. Family History: Unchanged from Admission Social History: Unchanged from Admission Past Medical History: Unchanged from Admission Objective Active Medications: Acetaminophen (Tylenol Tab*) 650 mg PO Q4H PRN PRN Reason: FEVER/PAIN Al Hydrox/Mg Hydrox/Simethicone (Maalox Plus*) 30 ml PO Q6H PRN PRN Reason: INDIGESTION Apixaban (Eliquis) 2.5 mg PO BID [facility] Last Admin: 11/24/17 08:43 Dose: 2.5 mg Aspirin (Aspirin 81 Mg Chew Tab*) 81 mg PO DAILY [facility] Last Admin: 11/24/17 08:43 Dose: 81 mg Demeclocycline HCl (Declomycin Tab*) 150 mg PO TID [facility] Last Admin: 11/24/17 14:09 Dose: 150 mg Dextrose (D50w Syringe 50 Ml*) 12.5 gm IV PUSH .FOR FS < 60 - SS PRN PRN Reason: FS < 60 Last Admin: 11/15/17 23:09 Dose: 25 gm Diltiazem HCl (Cardizem Cd Cap*) 360 mg PO DAILY [facility] Last Admin: 11/24/17 08:43 Dose: 360 mg Docusate Sodium (Colace Cap*) 100 mg PO BID PRN PRN Reason: CONSTIPATION Last Admin: 11/24/17 17:37 Dose: 100 mg Iodixanol (Visipaque* 320 (Contrast)) 65 ml IV ONCE [facility] Stop: 11/26/17 16:25 Ondansetron HCl (Zofran Inj*) 4 mg IV Q4H PRN PRN Reason: NAUSEA/VOMITING Senna (Senokot Tab*) 1 tab PO BID PRN PRN Reason: CONSTIPATION Last Admin: 11/24/17 17:37 Dose: 1 tab Sodium Chloride (Sodium Chloride Tab*) 1 gm PO BID [facility] Last Admin: 11/24/17 08:43 Dose: 1 gm Vital Signs - 8 hr 11/24/17 11/24/17 11/24/17 11:28 14:07 15:09 Temperature 98.1 F 98.5 F 98.3 F Pulse Rate 100 75 90 Respiratory 20 16 22 Rate Blood Pressure 143/65 127/61 130/55 (mmHg) O2 Sat by Pulse 95 93 96 Oximetry Oxygen Devices in Use Now: Nasal Cannula Appearance: alert, sittingin the chair mild respiratory distress Eyes: No Scleral Icterus Ears/Nose/Mouth/Throat: Clear Oropharnyx, Mucous Membranes Moist Neck: Trachea Midline Respiratory: Symmetrical Chest Expansion and Respiratory Effort, - - diminshed bilat right worse then left, mild respiratory distress Cardiovascular: RRR, - - murmur, s1s2 irregular Abdominal: NL Sounds; No Tenderness; No Distention Extremities: No Clubbing, Cyanosis, - - bilat lower ext with +2-3 pitting edema Skin: No Rash or Ulcers Neurological: Alert and Oriented x 3 Nutrition: Taking PO's Result Diagrams: 11/22/17 05:27 11/24/17 05:22 Additional Lab and Data: . Microbiology and Other Data: . Assess/Plan/Problems-Billing Assessment: Ms. Newton is an 81 year female that presented to ED with weakness, hyponatremia, afib with RVR and weakness. - Patient Problems (1) Atrial fibrillation with rapid ventricular response Current Visit: Yes Status: Acute Code(s): I48.91 - UNSPECIFIED ATRIAL FIBRILLATION SNOMED Code(s): 072311801242724 Comment: - HR improved - remains stable - continue cardizem 360 CD - Continue eliquis. (2) Acute on chronic congestive heart failure Current Visit: Yes Status: Acute Code(s): I50.9 - HEART FAILURE, UNSPECIFIED SNOMED Code(s): 66445285 Comment: - acute on chronic diastolic congestive heart failure - will continue with lasix 40mg IV today- as patient is mildly short of breath and continues to have bilat lower ext pitting edema +2-3 -CT of Chest yesterday - shows right moderate and small left pleural effusions and pulmonary edema and Atelectasis - will add incentive spirometer - Likely secondary to fluid resuscitation since arrival. - Echo shows an intact EF but she has severe left atrial dilitation, severe tricuspid regurgitation, and pulmonary hypertension. Suspect due to undiagnosed intersitial lung disease based on cxray, long-term hx of second hand smoke exposure. - did a CTA of the chest to r/o PE as patient has septal flattening and enlarged right atrial cavity - CTA was negative for PE and again did show large right pleural effusion and small left effusion- will continue with lasix (3) Hyponatremia Current Visit: Yes Status: Acute Code(s): E87.1 - HYPO-OSMOLALITY AND HYPONATREMIA SNOMED Code(s): 64575309 Comment: improving - Sodium 124 this AM - will continue fluid restriction, - Appears to be acute on chronic likely 2/2 hypervolemia - Will add sodium tablet and diclomycin - will give a dose lasix 40 mg today as patient has +2-3 pitting edema to bilat lower ext. and mild shortness of breath - strick I/O's - Fluid restriction 1200cc/day - serum osmolality 270, urine sodium 68 and urine osmolality 402- mostly dealing with SIADH d/t hypervolemia s/p fluid resusitation during this admission -repeat BMP in the AM (4) CKD (chronic kidney disease) Current Visit: Yes Status: Acute Code(s): N18.9 - CHRONIC KIDNEY DISEASE, UNSPECIFIED SNOMED Code(s): 812680865 Comment: - essentially at baseline - CKD-Stage 3 (5) Hypertension Current Visit: No Status: Acute Code(s): I10 - ESSENTIAL (PRIMARY) HYPERTENSION SNOMED Code(s): 71660011 Comment: - stable - Continue cardizem as per above for afib (6) Hyperkalemia Current Visit: Yes Status: Acute Code(s): E87.5 - HYPERKALEMIA SNOMED Code (s): 68776608 Comment: resolved - will continue to monitor and treat as needed (7) Hypomagnesemia Current Visit: Yes Status: Acute Code(s): E83.42 - HYPOMAGNESEMIA SNOMED Code(s): 931820589 Comment: magnesium 1.8 - will give 2 grams of magnesium and recheck in the AM (8) DVT prophylaxis Current Visit: Yes Status: Acute Code(s): MWD9288 - SNOMED Code(s): 303599976 Comment: - On renally dosed eliquis (9) DNR (do not resuscitate) Current Visit: Yes Status: Acute Comment: - Confirmed with patient and daughter Status and Disposition: Remain inpatient. PT/OT eval, anticipate rehab need, has bed at [facility] when medically stable.
[2017-11-25 05:29] LABS: Hematocrit 32 % (35-47); Hemoglobin 10.9 g/dl (12.0-16.0); Mean Corpuscular HGB Conc 35 g/dl (31-36); Mean Corpuscular Hemoglobin 32 pg (27-31); Mean Corpuscular Volume 92 fL (80-97); Mean Platelet Volume 7.5 um3 (7.4-10.4); Platelet Count 231 10^3/ul (150-450); Red Blood Count 3.44 10^6/ul (4.00-5.40); Red Cell Distribution Width 14 % (10.5-15); White Blood Count 7.2 10^3/ul (3.5-10.8)
[2017-11-25 05:48] LABS: EGFR Non-African American 64.8 (>60)
[2017-11-25] MEDS: Demeclocycline TAB* 150 MG PO SCH ×3 (07:35→20:35)
[2017-11-25] MEDS: Aspirin 81 mg CHEW TAB* 81 MG TAB.CHEW PO SCH (07:37)
[2017-11-25] MEDS: Sodium Chloride TAB* 1 GM PO SCH ×2 (07:37→20:34)
[2017-11-25] MEDS: Diltiazem CD CAP* 180 MG PO SCH (07:37)
[2017-11-25] MEDS: Apixaban* 2.5 MG TAB PO SCH ×2 (07:37→20:34)
--- NOTE | 2017-11-25 11:14 | PN ---
Subjective Date of Service: 11/25/17 Interval History: Ms. Newton reports feeling better today. She notes that her lower extremity edema has resolved. She has not been up out of bed yet but does not feel short of breath at rest. She denies chest pain or palpitations. She further denies nausea or abdominal pain/ Family History: Unchanged from Admission Social History: Unchanged from Admission Past Medical History: Unchanged from Admission Objective Active Medications: Acetaminophen (Tylenol Tab*) 650 mg PO Q4H PRN Al Hydrox/Mg Hydrox/Simethicone (Maalox Plus*) 30 ml PO Q6H PRN Apixaban (Eliquis) 2.5 mg PO BID [facility] Aspirin (Aspirin 81 Mg Chew Tab*) 81 mg PO DAILY [facility] Demeclocycline HCl (Declomycin Tab*) 150 mg PO TID [facility] Dextrose (D50w Syringe 50 Ml*) 12.5 gm IV PUSH .FOR FS < 60 - SS PRN Diltiazem HCl (Cardizem Cd Cap*) 360 mg PO DAILY [facility] Docusate Sodium (Colace Cap*) 100 mg PO BID PRN Iodixanol (Visipaque* 320 (Contrast)) 65 ml IV ONCE [facility] Ondansetron HCl (Zofran Inj*) 4 mg IV Q4H PRN Senna (Senokot Tab*) 1 tab PO BID PRN Sodium Chloride (Sodium Chloride Tab*) 1 gm PO BID [facility] Vital Signs: Temp Pulse Resp BP Pulse Ox 98.8 F 85 16 122/57 90 11/25/17 07:10 11/25/17 07:10 11/25/17 08:00 11/25/17 07:10 11/25/17 03:26 Oxygen Devices in Use Now: Nasal Cannula Appearance: Female sitting up in bed in NAD Eyes: No Scleral Icterus Ears/Nose/Mouth/Throat: Mucous Membranes Moist Neck: Trachea Midline Respiratory: Symmetrical Chest Expansion and Respiratory Effort, - - Diminished in bases Cardiovascular: NL Sounds; No Murmurs; No JVD, No Edema Abdominal: NL Sounds; No Tenderness; No Distention Extremities: No Edema Skin: No Rash or Ulcers Neurological: Alert and Oriented x 3, NL Muscle Strength and Tone Nutrition: Taking PO's Result Diagrams: 11/25/17 05:06 11/25/17 05:06 Additional Lab and Data: . Microbiology and Other Data: . Assess/Plan/Problems-Billing Assessment: Ms. Newton is an 81 year female that presented to ED with weakness, hyponatremia, afib with RVR and weakness. - Patient Problems (1) Acute on chronic congestive heart failure Comment: - Acute on chronic diastolic congestive heart failure - will continue with lasix 40mg IV again today - monitor closely, recheck labs in AM. - CT of Chest shows right moderate and small left pleural effusions and pulmonary edema - Echo shows an intact EF but she has severe left atrial dilitation, severe tricuspid regurgitation, and pulmonary hypertension. 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 - CTA chest negative for PE. (2) Hyponatremia Comment: - Sodium 124 this AM - will continue fluid restriction, 1200ml - Appears to be acute on chronic likely 2/2 hypervolemia but also has component of SIADH - Will continue sodium tablet and diclomycin for now, monitor closely - Fluid restriction 1200cc/day (3) Atrial fibrillation with rapid ventricular response Comment: - HR improved - remains stable - Continue cardizem 360 CD - Continue eliquis. (4) CKD (chronic kidney disease) Comment: - Essentially at baseline - CKD-Stage 3 (5) Hypertension Comment: - Stable - Continue cardizem as per above for afib (6) Weakness Comment: - Likely 2/2 to all the above - At baseline in terms of mobility, no acute PT needs as of 11/17/17, awaiting re -eval. (7) DVT prophylaxis Comment: - On renally dosed eliquis (8) DNR (do not resuscitate) Comment: - Confirmed with patient and daughter Status and Disposition: Remain inpatient. PT/OT eval, anticipate rehab need, has bed at [facility] when medically stable.
[2017-11-25] MEDS ORDERED: Furosemide IV* 10 MG/ML VIAL (40 MG) IV ONE (11:34)
[2017-11-25] MEDS ORDERED: Furosemide IV* 10 MG/ML VIAL (40 MG) ONE (11:37)
[2017-11-26 05:38] LABS: EGFR Non-African American 59.8 (>60)
--- NOTE | 2017-11-26 08:03 | PN ---
Subjective Date of Service: 11/26/17 Interval History: Ms. Newton reports feeling better today. She denies chest pain or SOB. She is tolerating oral intake well and denies nausea or abdominal pain. Family History: Unchanged from Admission Social History: Unchanged from Admission Past Medical History: Unchanged from Admission Objective Active Medications: Acetaminophen (Tylenol Tab*) 650 mg PO Q4H PRN Al Hydrox/Mg Hydrox/Simethicone (Maalox Plus*) 30 ml PO Q6H PRN Apixaban (Eliquis) 2.5 mg PO BID [facility] Aspirin (Aspirin 81 Mg Chew Tab*) 81 mg PO DAILY [facility] Demeclocycline HCl (Declomycin Tab*) 150 mg PO TID [facility] Dextrose (D50w Syringe 50 Ml*) 12.5 gm IV PUSH .FOR FS < 60 - SS PRN Diltiazem HCl (Cardizem Cd Cap*) 360 mg PO DAILY [facility] Docusate Sodium (Colace Cap*) 100 mg PO BID PRN Iodixanol (Visipaque* 320 (Contrast)) 65 ml IV ONCE [facility] Ondansetron HCl (Zofran Inj*) 4 mg IV Q4H PRN Senna (Senokot Tab*) 1 tab PO BID PRN Sodium Chloride (Sodium Chloride Tab*) 1 gm PO BID [facility] Vital Signs: Temp Pulse Resp BP Pulse Ox 98.2 F 76 16 111/50 97 11/26/17 03:11 11/26/17 03:11 11/26/17 03:11 11/26/17 03:11 11/26/17 03:11 Oxygen Devices in Use Now: Nasal Cannula Appearance: Female sitting up in chair in NAD Eyes: No Scleral Icterus Ears/Nose/Mouth/Throat: Mucous Membranes Moist Respiratory: Symmetrical Chest Expansion and Respiratory Effort, Clear to Auscultation Cardiovascular: NL Sounds; No Murmurs; No JVD, No Edema Abdominal: NL Sounds; No Tenderness; No Distention Lymphatic: No Cervical Adenopathy Extremities: No Edema Skin: No Rash or Ulcers Neurological: Alert and Oriented x 3, NL Muscle Strength and Tone Nutrition: Taking PO's Result Diagrams: 11/25/17 05:06 11/26/17 04:59 Additional Lab and Data: . Microbiology and Other Data: . Assess/Plan/Problems-Billing Assessment: Ms. Newton is an 81 year female that presented to ED with weakness, hyponatremia, afib with RVR and weakness. - Patient Problems (1) Acute on chronic congestive heart failure Comment: - Acute on chronic diastolic congestive heart failure - will continue with lasix 40mg po dailys - monitor closely, recheck labs in AM. - CT of Chest shows right moderate and small left pleural effusions and pulmonary edema - Echo shows an intact EF but she has severe left atrial dilitation, severe tricuspid regurgitation, and pulmonary hypertension. Suspect due to undiagnosed intersitial lung disease based on cxray, longterm hx of second hand smoke exposure. - CTA chest negative for PE. (2) Hyponatremia Comment: - Sodium 126 this AM - will continue fluid restriction, 1200ml - Appears to be acute on chronic likely 2/2 hypervolemia but also has component of SIADH - Will continue sodium tablet and diclomycin for now, monitor closely - Fluid restriction 1200cc/day (3) Atrial fibrillation with rapid ventricular response Comment: - HR improved - remains stable - Continue cardizem 360 CD - Continue eliquis. (4) CKD (chronic kidney disease) Comment: - Essentially at baseline - CKD-Stage 3 (5) Hypertension Comment: - Stable - Continue cardizem as per above for afib (6) Weakness Comment: - Likely 2/2 to all the above - At baseline in terms of mobility, no acute PT needs as of 11/17/17, awaiting re -eval. (7) DVT prophylaxis Comment: - On renally dosed eliquis (8) DNR (do not resuscitate) Comment: - Confirmed with patient and daughter Status and Disposition: Remain inpatient. PT/OT eval, anticipate rehab need, has bed at [facility] when medically stable.
[2017-11-26] MEDS: Demeclocycline TAB* 150 MG PO SCH ×3 (08:58→21:06)
[2017-11-26] MEDS: Sodium Chloride TAB* 1 GM PO SCH ×2 (08:58→21:05)
[2017-11-26] MEDS: Apixaban* 2.5 MG TAB PO SCH ×2 (08:59→21:05)
[2017-11-26] MEDS: Diltiazem CD CAP* 180 MG PO SCH (08:59)
[2017-11-26] MEDS: Aspirin 81 mg CHEW TAB* 81 MG TAB.CHEW PO SCH (08:59)
[2017-11-26] MEDS ORDERED: Furosemide TAB* 40 MG PO ONE (16:35)
[2017-11-27] MEDS ORDERED: Magnesium Hydroxide LIQ* 30 ML UDC PO PRN (08:28)
[2017-11-27] MEDS ORDERED: Polyethylene Glycol 3350* 17 GM PACKET PO PRN (08:29)
[2017-11-27] MEDS: Docusate CAP* 100 MG PO PRN (08:35)
[2017-11-27] MEDS: Apixaban* 2.5 MG TAB PO SCH ×2 (08:35→21:08)
[2017-11-27] MEDS: Senna TAB PO PRN (08:35)
[2017-11-27] MEDS: Aspirin 81 mg CHEW TAB* 81 MG TAB.CHEW PO SCH (08:36)
[2017-11-27] MEDS: Furosemide TAB* 40 MG PO SCH (08:36)
[2017-11-27] MEDS: Diltiazem CD CAP* 180 MG PO SCH (08:40)
[2017-11-27] MEDS: Demeclocycline TAB* 150 MG PO SCH ×3 (08:42→21:08)
[2017-11-27 08:43] LABS: EGFR Non-African American 55.5 (>60)
[2017-11-27] MEDS: Sodium Chloride TAB* 1 GM PO SCH ×2 (10:44→21:08)
--- NOTE | 2017-11-27 11:23 | PN ---
Subjective Date of Service: 11/27/17 Interval History: Ms. Newton denies complaint today. She feels stronger and is happy with the plan for discharge to [facility] tomorrow. Family History: Unchanged from Admission Social History: Unchanged from Admission Past Medical History: Unchanged from Admission Objective Active Medications: Acetaminophen (Tylenol Tab*) 650 mg PO Q4H PRN Al Hydrox/Mg Hydrox/Simethicone (Maalox Plus*) 30 ml PO Q6H PRN Apixaban (Eliquis) 2.5 mg PO BID [facility] Aspirin (Aspirin 81 Mg Chew Tab*) 81 mg PO DAILY [facility] Demeclocycline HCl (Declomycin Tab*) 150 mg PO TID [facility] Dextrose (D50w Syringe 50 Ml*) 12.5 gm IV PUSH .FOR FS < 60 - SS PRN Diltiazem HCl (Cardizem Cd Cap*) 360 mg PO DAILY [facility] Docusate Sodium (Colace Cap*) 100 mg PO BID PRN Furosemide (Lasix Tab*) 40 mg PO DAILY [facility] Magnesium Hydroxide (Milk Of Magnesia Liq*) 30 ml PO Q2H PRN Ondansetron HCl (Zofran Inj*) 4 mg IV Q4H PRN Polyethylene Glycol/Electrolytes (Miralax*) 17 gm PO Q4H PRN Senna (Senokot Tab*) 1 tab PO BID PRN Sodium Chloride (Sodium Chloride Tab*) 1 gm PO BID [facility] Vital Signs: Temp Pulse Resp BP Pulse Ox 98.2 F 83 18 137/62 97 11/27/17 07:31 11/27/17 07:31 11/27/17 08:00 11/27/17 07:31 11/27/17 07:31 Oxygen Devices in Use Now: Nasal Cannula Appearance: Female sitting up in chair in NAD Eyes: No Scleral Icterus Ears/Nose/Mouth/Throat: Mucous Membranes Moist Neck: Trachea Midline Respiratory: Symmetrical Chest Expansion and Respiratory Effort, - - Diminished in bases Cardiovascular: NL Sounds; No Murmurs; No JVD, - - +2 pitting edema above TEDs Abdominal: NL Sounds; No Tenderness; No Distention Lymphatic: No Cervical Adenopathy Skin: No Rash or Ulcers Neurological: Alert and Oriented x 3, NL Muscle Strength and Tone Nutrition: Taking PO's Result Diagrams: 11/25/17 05:06 11/27/17 08:17 Additional Lab and Data: . Microbiology and Other Data: . Assess/Plan/Problems-Billing Assessment: Ms. Newton is an 81 year female that presented to ED with weakness, hyponatremia, afib with RVR and weakness. - Patient Problems (1) Acute on chronic congestive heart failure Comment: - Continued slow improvement - Acute on chronic diastolic congestive heart failure - will continue with lasix 40mg po daily - monitor closely, recheck labs in AM. - CT of Chest shows right moderate and small left pleural effusions and pulmonary edema - Echo shows an intact EF but she has severe left atrial dilitation, severe tricuspid regurgitation, and pulmonary hypertension. 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 - CTA chest negative for PE. (2) Hyponatremia Comment: - Sodium 127 this AM - will continue fluid restriction, 1200ml - Appears to be acute on chronic likely 2/2 hypervolemia but also has component of SIADH - Will continue sodium tablet and diclomycin for now, monitor closely - Fluid restriction 1200cc/day (3) Atrial fibrillation with rapid ventricular response Comment: - HR improved - remains stable - Continue cardizem 360 CD - Continue eliquis. (4) CKD (chronic kidney disease) Comment: - Essentially at baseline - CKD-Stage 3 (5) Hypertension Comment: - Stable - Continue cardizem as per above for afib (6) Weakness Comment: - Likely 2/2 to all the above - At baseline in terms of mobility, no acute PT needs as of 11/17/17, awaiting re -eval. (7) DVT prophylaxis Comment: - On renally dosed eliquis (8) DNR (do not resuscitate) Comment: - Confirmed with patient and daughter Status and Disposition: Remain inpatient. PT/OT eval, anticipate rehab need, has bed at [facility] when medically stable.
[2017-11-28 08:55] VITALS: BP 162/67
[2017-11-28 08:59] LABS: EGFR Non-African American 47.4 (>60)
[2017-11-28] MEDS: Diltiazem CD CAP* 180 MG PO SCH (09:15)
[2017-11-28] MEDS: Apixaban* 2.5 MG TAB PO SCH (09:15)
[2017-11-28] MEDS: Sodium Chloride TAB* 1 GM PO SCH (09:15)
[2017-11-28] MEDS: Aspirin 81 mg CHEW TAB* 81 MG TAB.CHEW PO SCH (09:16)
[2017-11-28] MEDS: Furosemide TAB* 40 MG PO SCH (09:16)
[2017-11-28] MEDS: Demeclocycline TAB* 150 MG PO SCH (09:22)
--- NOTE | 2017-11-28 09:59 | DS ---
HOSPITAL MEDICINE DISCHARGE SUMMARY: DATE OF ADMISSION: 11/16/17 DATE OF DISCHARGE: 11/28/17 Please note this discharge summary will serve as a history and physical for [facility]. ATTENDING PROVIDER: Wendy Tineo MD * (DICTATED BY KRISTOFER NOVOA NP) PRIMARY DIAGNOSES: 1. Rapid atrial fibrillation, now controlled. 2. Hyponatremia secondary to congestive heart failure and syndrome of inappropriate antidiuretic hormone secretion, improving. 3. New finding of acute on chronic diastolic congestive heart failure related to cor pulmonale and significant pulmonary hypertension. SECONDARY DIAGNOSES: 1. History of hypertension. 2. Cervical spondylosis. 3. History of anemia. 4. Question of obstructive sleep apnea. 5. Osteoporosis. MEDICATIONS AT THE TIME OF DISCHARGE: 1. Alendronate 70 mg p.o. weekly. 2. Potassium chloride 20 mEq p.o. daily. 3. Ferrous sulfate 5 mL p.o. daily. 4. Cyanocobalamin 6000 mcg p.o. daily. 5. Caltrate with D 1 tab p.o. daily. 6. Aspirin 81 mg p.o. daily. 7. Senna 1 tab p.o. b.i.d. p.r.n. 8. Polyethylene glycol 17 g p.o. q.4 hours p.r.n. 9. Furosemide 40 mg p.o. daily. 10. Docusate 100 mg p.o. b.i.d. p.r.n. 11. Diltiazem CD 360 mg p.o. daily. 12. Demeclocycline 150 mg p.o. t.i.d. 13. Apixaban 2.5 mg p.o. b.i.d. 14. Tylenol 650 mg p.o. q.4 hours p.r.n. HOSPITAL COURSE: Ms. Newton is an 81-year-old female with a past medical history of known diastolic congestive heart failure chronically as well as hypertension and osteoporosis, who presented to the hospital on 11/15/17 with concern for weakness and fatigue. Please see the dictated H and P from Aye Stack MD, for complete details. In brief, the patient stated that over the past couple of days prior to admission that her legs just would not move. She was checking her blood pressure and noted that her heart rate was elevated from 110 to 130. She denied chest pain. She had dyspnea on exertion over the past couple of days as well. She had seen her primary care physician back in September and he had increased her Lasix and potassium. In the emergency room, the patient was found to be in rapid atrial fibrillation with a heart rate in the 130s. Her labs showed no leukocytosis. Her sodium of 128, potassium 6.0, BUN 55, creatinine 1.73 which was up from her baseline. She had a troponin of 0.06. Magnesium 2.0. She had no evidence of infection. Urinalysis was negative. Chest x-ray showed cardiomegaly with prominent interstitium consistent with chronic interstitial disease. She had an abdomen and bladder ultrasound due to her elevated BUN and creatinine, which showed no hydronephrosis of either kidney, bilateral ureteral jets. It did also show incidentally ascites with bilateral pleural effusions noted. Ms. Newton was admitted to the hospital for treatment of rapid atrial fibrillation and acute on chronic diastolic congestive heart failure. The patient was initially treated with a Cardizem drip, but this had to be discontinued due to hypotension. The patient was given additional fluids overnight for the hypotension. Thereafter, the patient was treated for acute on chronic diastolic congestive heart failure with small doses of Lasix. Her rapid atrial fibrillation was treated with slow increases in oral Cardizem. It took several days, but finally her heart rate is controlled, running in the 60s to 70s on 360 mg of diltiazem CD. In terms of her CHF, the patient has been dosed daily with furosemide intravenously. With this, she has had improvement in her lower extremity edema and improvement in her breathing; however, she continues to have some lower extremity edema above her TRISHA stockings and edema is noted at the level of the knee and above. She has diminished lung sounds consistent with her known pleural effusions. She will need continued furosemide at 40 mg orally per day and this will need to be adjusted based on her assessment of her fluid status. Finally, the patient was started on apixaban for new AFib. Ms. Newton had a transthoracic echocardiogram in evaluation of atrial fibrillation. This showed moderate concentric left ventricular hypertrophy, estimated ejection fraction 60% to 65%. There is septal flattening of the interventricular septum consistent with right ventricular volume or pressure overload. The left atrium is severely dilated. The right atrial cavity size is severely dilated. There is predominant [id number] shunting across the interatrial septum with several small defects. There is aznm-wt-thytiqug aortic stenosis. There is hact-uw-tjlwkgoz mitral regurgitation. There is severe tricuspid regurgitation. The right ventricular systolic pressure is estimated 56 mmHg. With these findings from the transthoracic echocardiogram, we did look back to her chest x-ray on arrival, which did show interstitial lung disease. It was surmised that the patient had significant pulmonary hypertension related to long-term exposure to secondhand smoke leading to cor pulmonale. We did rule out a pulmonary embolism with chest/thorax CTA, which was negative, but did confirm pulmonary arterial hypertension with cor pulmonale and the presence of the bilateral pleural effusions. During this hospitalization, Ms. Newton has had an issue with hyponatremia. Her sodium on arrival was 128. By 11/20/17, it had fallen to 122. Our workup included urine sodium, which was 68 and a urine osmo, which was 402. The patient does have lower extremity edema and pleural effusions and acute on chronic diastolic congestive heart failure related to her cor pulmonale. I suspected in part her hyponatremia was related to this, but also based on her urine studies that she had a component of SIADH. We treated initially with demeclocycline, but when this did not improve the sodium after a couple of days , we did add sodium chloride tabs. We are now seeing an improvement in the sodium and today it is 130. I will discontinue sodium chloride tabs now but continue demeclocycline for now. The patient will need to have close monitoring of her basic metabolic panel, both for the dosage of her furosemide as well as adjustment of this treatment for hyponatremia. If this hyponatremia resolves, I would recommend discontinuing the demeclocycline and monitoring sodium levels to make sure that her SIADH has resolved. Ms. Newton is doing much better today. Her heart rate is better controlled. Her congestive heart failure is resolving. Her hyponatremia is resolving. Our plans are for discharge to [facility], which will be accepting her tomorrow. DISPOSITION: [facility]. DIET: Heart-healthy with sodium restriction of 1200 mg until hyponatremia resolves. ACTIVITY: As tolerated. FOLLOWUP PLANS: Please follow up with staff at [facility] regarding continued monitoring for hyponatremia and CHF. LABS: [facility] 11/29/17 and 12/01/17 TIME SPENT: Approximately 60 minutes were spent in the discharge of this patient, more than half the time was spent with the patient at the bedside reviewing the events leading up to and during this hospitalization, performing the physical examination, and reviewing my plan of care. KRISTOFER NOVOA NP [id number]/[facility] #: [id number] [place]
== END 2017-11-28 11:45 | DRG 643 ==
LOC: ED 19:51 → MEDTELE 11-16 00:36
PROVIDERS: ADMIT Pediatrics; ATTEND Internal Medicine
DX: E22.2 Syndrome of inappropriate secretion of antidiuretic hormone (principal); I50.33 Acute on chronic diastolic (congestive) heart failure; I45.2 Bifascicular block; N17.9 Acute kidney failure, unspecified; I13.0 Hypertensive heart and chronic kidney disease with heart failure and stage 1 through stage 4 chronic kidney disease, or unspecified chronic kidney disease; M47.892 Other spondylosis, cervical region; M81.0 Age-related osteoporosis without current pathological fracture; I48.91 Unspecified atrial fibrillation; I89.0 Lymphedema, not elsewhere classified; E87.5 Hyperkalemia; Z66 Do not resuscitate; I27.20 Pulmonary hypertension, unspecified; N18.3 Chronic kidney disease, stage 3 (moderate); E83.42 Hypomagnesemia; I27.81 Cor pulmonale (chronic); I95.9 Hypotension, unspecified; I08.3 Combined rheumatic disorders of mitral, aortic and tricuspid valves; G47.33 Obstructive sleep apnea (adult) (pediatric); Z79.82 Long term (current) use of aspirin; Z82.49 Family history of ischemic heart disease and other diseases of the circulatory system; Z88.1 Allergy status to other antibiotic agents; Z88.8 Allergy status to other drugs, medicaments and biological substances; Z87.891 Personal history of nicotine dependence; Z90.710 Acquired absence of both cervix and uterus; Z23 Encounter for immunization; Z79.01 Long term (current) use of anticoagulants
CPT/HCPCS: 36415; 71045; 71250; 71275; 76770; 80048; 80053; 80061; 81003; 81015; 83605; 83735; 83880; 83930; 83935; 84134; 84300; 84443; 84484; 85025; 85027; 85610; 85730; 86140; 86850; 86900; 86901; 87040; 87077; 87086; 87186; 90686; 93005; 93306; 99285; A9270-GY; G8978-GP-CI; G8978-GP-CJ; G8979-GP-CI; G8980-GP-CI; G8987-GO-CK; G8988-GO-CI; J1940; J3475; J3490; Q9967